=== PATIENT | male | born 1970 | race Hispanic/Latino ===

== ENCOUNTER 2017-06-24 16:37 | Emergency (ER) | payer SELFPAY | END 2017-06-24 18:15 | disposition home or self-care (01) | LOC: EDH 16:37 | DX: K04.7 Periapical abscess without sinus (principal); Z72.0 Tobacco use ==

== ENCOUNTER 2023-03-14 08:36 | Emergency (ER) | payer OTHER ==
[~2023-03-14] VITALS: Ht 160 cm; Wt 80.9 kg
[2023-03-14] MEDS ORDERED: CEFTRIAXONE 500MG VIAL IM STA (09:16)
[2023-03-14] MEDS ORDERED: LIDOCAINE HCL 2% VISCOUS 15 ML UDCUP TP ONE (09:30)
[2023-03-14] MEDS ORDERED: DOXYCYCLINE HYCLATE 100 MG TABLET PO SCH (09:30)
[2023-03-14 10:21] LABS: ADD UA MICROSCOPIC YES; APPEARANCE,URINE CLEAR (CLEAR); BILIRUBIN,URINE NEGATIVE (NEGATIVE); COLOR,URINE LIGHT-YELLOW (YELLOW); GLUCOSE, URINE (UA) >=1000 mg/dL (NEGATIVE); KETONES,URINE NEGATIVE (NEGATIVE); LEUKOCYTE ESTERASE ,URINE 250 Leu/uL (NEGATIVE); NITRATE,URINE NEGATIVE (NEGATIVE); OCCULT BLOOD,URINE NEGATIVE (NEGATIVE); PH,URINE 5.5 (5.0-8.0); PROTEIN,URINE 10 mg/dL (NEGATIVE); UROBILINOGEN,URINE 0.2 mg/dL (0.2-1.0)
[2023-03-14 10:32] LABS: BACTERIA,URINE FEW /HPF (None Seen); MUCUS,URINE RARE LPF (None Seen); SQUAMOUS EPITHELIAL CELL,UR RARE /HPF (0-2); UNCLASSIFIED CRYSTAL 1 /HPF (None Seen); WBC,URINE 51-100 /HPF (0-1)
[2023-03-14] MEDS ORDERED: VALA10002 PO (11:30)
[2023-03-14] MEDS ORDERED: [UNRECOGNIZED DRUG - CODE] TP (11:30)
[2023-03-14] MEDS ORDERED: DOXY-469 PO (11:30)
[2023-03-14 11:45] VITALS: BP 121/80; PULSE 70; RESP 16; O2SAT 100
== END 2023-03-14 11:53 | disposition home or self-care (01) ==
LOC: EDH 08:36
DX: N39.0 Urinary tract infection, site not specified (principal); A63.8 Other specified predominantly sexually transmitted diseases; R36.9 Urethral discharge, unspecified; N50.811 Right testicular pain; Z79.899 Other long term (current) drug therapy
CPT/HCPCS: 99285; 87088; 87797; 87486; 81001; 76870; 96372; J0696

== ENCOUNTER 2023-10-17 08:09 | Emergency (ER) | payer OTHER ==
[~2023-10-17] VITALS: Ht 154.9 cm; Wt 81.6 kg
[~2023-10-17 08:09] MED LIST: DOXY100C61 PO; VALA10002 PO; [UNRECOGNIZED DRUG - CODE] TP
[2023-10-17 08:12] VITALS: BP 119/92; PULSE 88; RESP 18
[2023-10-17 08:53] LABS: INFLUENZA TYPE A Negative For Type A (NEGATIVE); INFLUENZA TYPE B Negative For Type B (NEGATIVE)
[2023-10-17 08:57] LABS: SARS-CoV-2, RNA, NAAT POSITIVE SARS CoV-2 (NEGATIVE)
[2023-10-17] MEDS ORDERED: paxlovid PO (09:43)
== END 2023-10-17 09:58 | disposition home or self-care (01) ==
LOC: EDH 08:09
DX: U07.1 COVID-19 (principal); Z79.899 Other long term (current) drug therapy
CPT/HCPCS: 87635; 87804

== ENCOUNTER 2023-12-01 09:21 | Emergency (ER) | payer SELFPAY ==
[~2023-12-01] VITALS: Ht 154.9 cm; Wt 81.6 kg
[~2023-12-01 09:21] MED LIST changes: +paxlovid PO
[2023-12-01 10:00] LABS: BASOPHILS # (AUTO) 0.07 K/uL (0.00-0.20); BASOPHILS % (AUTO) 0.7 % (0.0-5.0); EOSINOPHILS # (AUTO) 0.47 K/uL (0.00-0.70); EOSINOPHILS % (AUTO) 4.4 % (0.0-8.0); HEMATOCRIT 44.4 % (42-54); IMMATURE GRANULOCYTE ABSOLUTE 0.03 K/uL (0-1); LYMPHOCYTES # (AUTO) 2.6 K/uL (1.0-4.8); LYMPHOCYTES % (AUTO) 24.4 % (21.0-51.0); MEAN CORPUSCULAR HEMOGLOBIN 31.8 pg (27.0-33.0); MEAN CORPUSCULAR HGB CONC 35.1 g/dL (32.0-36.0); MEAN CORPUSCULAR VOLUME 90.4 fL (79-99); MONOCYTES # (AUTO) 0.6 K/uL (0.1-1.0); MONOCYTES % (AUTO) 5.4 % (3.0-13.0); NEUTROPHILS # (AUTO) 6.9 K/uL (1.8-7.7); NEUTROPHILS % (AUTO) 64.8 % (40.0-77.0); PLATELET COUNT (AUTO) 206 K/uL (130-400); RED BLOOD CELL COUNT(AUTO) 4.91 MIL/uL (4.50-6.20); WHITE BLOOD COUNT (AUTO) 10.6 K/uL (4.8-10.8)
[2023-12-01 10:07] LABS: CREATININE 0.7 mg/dL (0.5-1.3)
[2023-12-01 10:11] LABS: ALBUMIN 3.4 g/dL (3.5-5.0); BILIRUBIN,TOTAL 0.8 mg/dL (0.2-1.0); TOTAL PROTEIN, SERUM 8.5 g/dL (6.0-8.3)
[2023-12-01 10:38] LABS: APPEARANCE,URINE CLEAR (CLEAR); BILIRUBIN,URINE NEGATIVE (NEGATIVE); COLOR,URINE YELLOW (YELLOW); GLUCOSE, URINE (UA) >=1000 mg/dL (NEGATIVE); KETONES,URINE NEGATIVE (NEGATIVE); LEUKOCYTE ESTERASE ,URINE NEGATIVE Leu/uL (NEGATIVE); NITRATE,URINE NEGATIVE (NEGATIVE); OCCULT BLOOD,URINE NEGATIVE (NEGATIVE); PH,URINE 5.5 (5.0-8.0); PROTEIN,URINE 20 mg/dL (NEGATIVE); UROBILINOGEN,URINE 0.2 mg/dL (0.2-1.0)
[2023-12-01 10:39] LABS: ADD UA MICROSCOPIC YES
[2023-12-01 10:43] LABS: MUCUS,URINE RARE LPF (None Seen); RBC,URINE 0-1 /HPF (0-1); SQUAMOUS EPITHELIAL CELL,UR RARE /HPF (0-2)
[2023-12-01] MEDS: MORPHINE 4 MG SYG IVP ONE (11:39)
[2023-12-01] MEDS ORDERED: KETO10TA2 PO (12:22)
[2023-12-01] MEDS: LACTULOSE 20 GM/30 ML UDCUP PO ONE (12:39)
[2023-12-01 12:42] VITALS: BP 146/79; PULSE 66; RESP 14; O2SAT 99
== END 2023-12-01 12:43 | disposition home or self-care (01) ==
LOC: EDH 09:21
DX: K57.30 Diverticulosis of large intestine without perforation or abscess without bleeding (principal); K80.20 Calculus of gallbladder without cholecystitis without obstruction; K59.00 Constipation, unspecified; Z79.899 Other long term (current) drug therapy
CPT/HCPCS: 99285; 74176; 96374; 80053; 83690; 85025; 81001; 36415; J2270

== ENCOUNTER 2024-10-28 05:00 | Inpatient (IN) | payer BC, OTHER ==
[~2024-10-28] VITALS: Ht 152.4 cm; Wt 75.9 kg
[~2024-10-28 05:00] MED LIST changes: +DOXY-466 PO; -DOXY100C61 PO; +KETO10TA2 PO
--- NOTE | 2024-10-28 05:48 | ERN ---
ED Note History of Present Illness Stated Complaint: RUNNY NOSE CONGESTION Chief Complaint: Flu Symptoms Time Seen by MD: 05:21 Dictation: This is a 53-year-old male who presented to the emergency room with complaints of feeling hot runny nose with chest congestion all this that started yesterday. He denied any nausea vomitings. He also denied chills and rigors. No dysuria hematuria. He reported severe body aches. Patient stated that since Tuesday he has had cough with the copious amounts of sputum. He denied any hemoptysis. Gave a history of smoking cigarettes for many years and is experiencing some shortness of breath with any movement of the body and activity . Temperature 99.8 pulse 103 blood pressure 143/80 respiratory rate 20 pulse oximetry 98% on room air Allergies: Coded Allergies: No Known Drug Allergies (Unverified Allergy, Unknown, 10/17/23) Home Meds Active Scripts Ketorolac Tromethamine (Ketorolac Tromethamine) 10 Mg Tablet, 10 MG PO Q6H for pain for 7 Days, #28 TAB Prov:AMBAR MCGUIRE MD 12/01/23 [paxlovid] No Conflict Check, 3 TAB PO BID for covid 19 for 5 Days, #30 0 Refills Prov:MARIA G CONLEY MD 10/17/23 Lidocaine HCl (Xylocaine HCl 2% Jelly Pf) 2 % Jel, 1 APPL TP TIDP PRN for PAIN, #1 TUBE 0 Refills Prov:CLAUDIA WOODS [facility] 03/14/23 Valacyclovir HCl (Valtrex) 1,000 Mg Tablet, 1000 MG PO BID for 10 Days, #20 TAB 0 Refills Prov:CLAUDIA WOODS [facility] 03/14/23 Doxycycline Monohydrate (Doxycycline Monohydrate) 100 Mg Capsule, 1 CAP PO BID for 10 Days, #20 CAP 0 Refills Prov:CLAUDIA WOODSP 03/14/23 Past Medical History Past Medical History: No Pertinent History Surgical History: None Family History: Negative Social History: Smokers RN Note Reviewed/Agreed w/PFSH: Yes Review of System Dictation Constitutional: Positive for fever, generalized body aches but denied chills, and weight loss Eyes: Negative for injury, pain,redness, and discharge ENT: Negative for injury,pain or swelling Cardiovascular: Negative for chest pain, palpitations, and edema Respiratory: Positive for shortness of breath, cough with sputum, Abdomen/GI: Negative for abdominal pain, nausea, vomiting, diarrhea, and constipation Back: Negative for injury and pain : Negative for injury, bleeding and discharge MS/Extremity: Negative for injury and deformity Skin: Negative for rash, and discoloration Neuro: Negative for headache, weakness, numbness, tingling, and seizure Psych: Negative for suicide ideation, homicidal ideation, and hallucinations Initial Vital Sign VS Vital Signs Date Time Temp Pulse Resp B/P (MAP) Pulse Ox O2 Delivery O2 Flow Rate FiO2 10/28/24 05:01 99.9 103 20 143/80 97 Room Air 10/28/24 05:10 0 21 Physical Exam Dictation General: awake, alert, NAD mild tachypnea Head/Face: Normocephalic, atraumatic Eyes: PERRL, EOMI, vision at baseline ENT: oral cavity clear, TMs clear, no signs of infection Neck: Trachea midline, supple, no nuchal rigidity Cardiovascular: RRR, normal S1/S2, No MRGs, no JVD Respiratory: Decreased air entry bilaterally, prolonged expiratory phase with end expiratory wheezing to forced expiratory maneuver Abdomen: Soft, non-tender, non-distended, normal bowel sounds, no guarding or rebound. Skin: Warm, dry, normal turgor, no rash MS/Extremity: Pulses equal, no cyanosis, neurovascular intact, FROM Neuro: COAx4, GCS 15, strength 5/5, CN 2-12 intact, normal cerebellar exam, normal gait, Psych: Normal behavior, mood, and affect normal Extremities-trace edema without any palpable cords, Homans sign is negative Results (Laboratory/Radiology) Laboratory/Radiology Laboratory Tests Test 10/28/24 05:34 10/28/24 07:08 10/28/24 08:20 Influenza Type A Antigen Negative For Type A Influenza Type B Antigen Negative For Type B SARS-CoV-2 Antigen (Rapid) PRESUMPTIVE NEGATIVE Group A Streptococcus Rapid negative (NEGATIVE) White Blood Count 10.0 K/uL (4.8-10.8) Red Blood Count 4.65 MIL/uL (4.50-6.20) Hemoglobin 14.9 g/dL (14.0-18.0) Hematocrit 41.4 % (42-54) L Mean Corpuscular Volume 89.0 fL (79-99) Mean Corpuscular Hemoglobin 32.0 pg (27.0-33.0) Mean Corpuscular Hemoglobin Concent 36.0 g/dL (32.0-36.0) Red Cell Distribution Width 11.9 % (11.0-15.5) Platelet Count 175 K/uL (130-400) Mean Platelet Volume 12.2 fL (7.5-10.5) H Immature Granulocyte % (Auto) 0.3 % (0-1) Neutrophils (%) (Auto) 77.4 % (40.0-77.0) H Lymphocytes (%) (Auto) 11.8 % (21.0-51.0) L Monocytes (%) (Auto) 7.9 % (3.0-13.0) Eosinophils (%) (Auto) 2.4 % (0.0-8.0) Basophils (%) (Auto) 0.2 % (0.0-5.0) Neutrophils # (Auto) 7.8 K/uL (1.8-7.7) H Lymphocytes # (Auto) 1.2 K/uL (1.0-4.8) Monocytes # (Auto) 0.8 K/uL (0.1-1.0) Eosinophils # (Auto) 0.24 K/uL (0.00-0.70) Basophils # (Auto) 0.02 K/uL (0.00-0.20) Absolute Immature Granulocyte (auto 0.03 K/uL (0-1) Nucleated Red Blood Cells 0.0 % (0.0-0.19) Prothrombin Time 10.3 SEC (9.6-11.6) Prothromb Time International Ratio 0.97 (0.85-1.15) Activated Partial Thromboplast Time 35.1 SEC (26.3-35.5) Sodium Level 132 mmol/L (136-145) L Potassium Level 3.9 mmol/L (3.5-5.1) Chloride Level 94 mmol/L (101-111) L Carbon Dioxide Level 27 mmol/L (21-32) Blood Urea Nitrogen 14 mg/dL (7-18) Creatinine 0.8 mg/dL (0.5-1.3) Glomerular Filtration Rate Calc 106 mL/min (>90) Random Glucose 289 mg/dL (70-105) H Total Calcium 9.1 mg/dL (8.5-10.1) Troponin I High Sensitivity < 4 ng/L (4-75) L Lactic Acid Level 1.7 mmol/L (0.8-2.5) Labs Reviewed?: Yes X-RAY Comment: I have reviewed the chest x-ray which shows a spontaneous right pneumothorax . Notified radiology REASON: copd exacerbation Pneumonitis ORDERING PHYSICIAN: DILLON PATEL MD PROCEDURE: CXR1VW - CHEST 1VW EXAM: CR Chest, 1 View. CLINICAL HISTORY: copd exacerbation Pneumonitis COMPARISON: None provided. FINDINGS: LUNGS: Elevation of the right hemidiaphragm with decreased lung volume on the right. Grossly clear left lung. PLEURAL SPACES: No pleural effusion or pneumothorax. MEDIASTINUM: Cardiac size and mediastinal contours within normal limits. BONES: No acute osseous abnormality. IMPRESSION: Elevation of the right hemidiaphragm with decreased lung volume on the right. Grossly clear left lung. /[place] DICTATED BY: BHASKAR MCMILLAN MD DATE: 10/28/24727 ELECTRONICALLY SIGNED BY: BHASKAR MCMILLAN MD DATE: 10/28/24727 ED Course ED Course Orders Procedure Category Date Status Time Influenza Type A & B, LAB 10/28/24 Complete Rapid 05:33 Rapid (Group A Strep) LAB 10/28/24 Complete 05:33 Ketorolac PHA 10/28/24 Complete Tromethamine 30mg/Ml 06:00 Covid19 (Sars Antigen LAB 10/28/24 Complete Rapid) 05:48 Chest 1vw RAD 10/28/24 Resulted 06:10 Methylprednisolone PHA 10/28/24 Complete Succ 125mg (Solu-Medr 06:30 Ipratropium/Albuterol PHA 10/28/24 Complete Neb (Duoneb) 06:30 Lidocaine Hcl 1% 20ml PHA 10/28/24 Complete Vial (Lidocaine Hc 07:20 Fentanyl Citrate Pf PHA 10/28/24 Complete 0.05 Mg/Ml (Fentanyl 07:24 Chest 1vw RAD 10/28/24 Taken 07:49 12 Lead Ekg Tracing- EKG 10/28/24 Complete Technical 07:49 Cbc With Differential LAB 10/28/24 Complete 07:49 Pt And Ptt LAB 10/28/24 Complete 07:49 Troponin I High LAB 10/28/24 Complete Sensitivity 07:49 Blood Cult RONN 10/28/24 Logged 07:49 Lactic Acid LAB 10/28/24 Complete 07:49 Ceftriaxone 2gm Vial PHA 10/28/24 Complete (Rocephin 2gm Inj) 08:00 0.9%Nacl 1000ml (Ns PHA 10/28/24 Complete 1000ml) 08:00 Hsbid-8-Hegpwadrtub LAB 10/28/24 In Process 07:50 Basic Metabolic Panel LAB 10/28/24 Complete 08:04 Ct Chest W/O Contrast CT 10/28/24 Logged 08:24 Current Medications Medications (Trade) Dose Ordered Sig/Estela Route PRN Reason Start Time Stop Time Status Last Admin Dose Admin Albuterol (DUOneb) 1 UDVIAL ONCE ONCE IH 10/28/24 06:30 10/28/24 06:31 DC 10/28/24 07:27 Ceftriaxone Sodium (Rocephin 2gm Inj) 2 gm ONCE ONCE IVPB 10/28/24 08:00 10/28/24 08:01 DC Fentanyl Citrate (FENTanyl CITRate PF 50 MCG/ 1 ML 2ML VIAL) 100 mcg STK-MED ONCE .ROUTE 10/28/24 07:24 10/28/24 07:25 DC Ketorolac Tromethamine (toRADol) 30 mg ONCE ONCE IM 10/28/24 06:00 10/28/24 06:01 DC 10/28/24 06:08 Lidocaine HCl (Lidocaine HCl 1% 20ml Vial) 20 ml STK-MED ONCE .ROUTE 10/28/24 07:20 10/28/24 07:20 DC Methylprednisolone Sodium Succinate (Solu-medROL 125MG) 60 mg ONCE ONCE IVP 10/28/24 06:30 10/28/24 06:31 DC 10/28/24 06:17 Sodium Chloride 1,000 ml @ 0 mls/hr ONCE ONCE IV 10/28/24 08:00 10/28/24 08:01 DC Vital Signs Date Time Temp Pulse Resp B/P (MAP) Pulse Ox O2 Delivery O2 Flow Rate FiO2 10/28/24 08:22 97.0 85 22 104/69 100 Non-Rebreather+ 15 100 10/28/24 07:27 86 20 10/28/24 06:24 92 28 109/70 96 Room Air* 0 21 10/28/24 05:10 99.9 106 24 116/69 95 Room Air* 0 21 10/28/24 05:01 99.9 103 20 143/80 97 Room Air . We will perform diagnostic labs, and administer medications according to the patient's complaint. Once the results are available, will review and personally interpreted the labs to rule out any acute life-threatening emergency the trach require immediate intervention and treatment. I will then re- evaluate the patient after treatment and diagnostic exams have return to determine whether the patient requires any further testing, can safely be discharged home or need further admission to hospital for additional treatment and evaluation. Patient was initially triaged and worked up as a viral syndrome and with influenza symptoms however on re-evaluation he complained to me of shortness of breath on the right side having a pain which started in the neck with prompted me to pursue a chest x-ray. 7:08 a.m. I reviewed the chest x-ray which showed right-sided pneumothorax spontaneous and I updated the patient. He definitely appears slightly worse with increasing tachypnea. Immediately placed him on 100% non-rebreather mask and we will pursue a tube thoracostomy. Procedure explained in detail with risks benefits alternatives We will also obtain basic labs and outcomes. Patient care transition to Dr. Richard who will place the chest tube Medical Decision Making MDM Differential diagnosis: Influenza, COVID, viral syndrome,, pneumothorax upper respiratory tract infection, bronchitis Rationale: Tests considered and ordered secondary to shared decision making include: labs, ECG and radiology Previous outside records reviewed: Old ER visits. Risk of complication and/or morbidity or mortality of patient management: None Medications-Per medication reconciliation Need for hospitalization: Patient does meet criteria for hospitalization. Need for emergency major/minor surgery: No There are no social concerns with this patient. Prescription drug management Prescriptions will include symptomatic care Patient's prior external medical records from other ER visits were reviewed by me as indicated. Prior testing and results from previous visits were reviewed. Prior tests were taken into account with medical decision making and resource utilization, independent historian/historians were used to obtain complete medical history. I independently interpreted the test that were performed, results were reviewed by me and considered findings on radiology if ordered. Medical management and examination interpretation discussions were had by me with other qualified healthcare professionals as indicated for the patient's care. Patient handed off at shift change at 7:00 a.m., patient with shortness of breath respiratory distress and right-sided pneumothorax no chest tube has been placed he had, I prepped the site sterilely and inserted chest tube I requested normal chest tube set up however no equipment was available for standard chest tube thoracostomy so only thing that was available was pigtail catheter 12 Cypriot. Symptoms are improved, vitals all stable repeat chest x-ray shows re- expansion of lung concern for empyema, heading antibiotics CT scan and admitting to Medicine for further care and evaluation. Procedure Chest Tube Location: mid axillary line Chest Tube Procedures: betadine prep? Anesthesia: 1% Lidocaine Tube Drainage: see nurses notes Progress Pigtail 12 [place]riot catheter placed, cylinder technique sterile, local lidocaine used, good air return, secured with sterile tape and petroleum gauze, one 2.0 suture placed for security. Problem List Problem List: (1) Acute viral syndrome (2) Tobacco abuse (3) COPD exacerbation (4) Pneumothorax, right Critical Care Note Comment(s) Total critical care time was 33 minutes. Excluding time for procedures. Management of critically ill patient with concern for acute decompensation. Management included interpretation of laboratory values and imaging, hemodynamics, time for consultation with consultants and admitting physician. DX & DISP Disposition: Inpatient Decision to Admit Time: 07:15 Departure Impression: Primary Impression: Spontaneous pneumothorax Additional Impressions: COPD with acute exacerbation, Tobacco abuse, Pneumothorax, right, Acute viral syndrome Condition: Stable Additional Instructions: Patient was informed of all the diagnostic labs and procedures conducted in the emergency room today and demonstrated understanding of the results. I personally reviewed and interpreted all the diagnostic exams performed in the ER today. The patient will be admitted to the hospital for further treatment and evaluation. Disposition-admit to facility Condition-stable/guarded Course-uncertain at this time Pain status-decreased Assessment-exam unchanged Admission Certification- I certify that the patients status is appropriate and is based on my best clinical judgment and the patient's condition as documented in the medical records Referrals: SELF,REFERRAL (PCP) DILLON PATEL MD Oct 28, 2024 05:48 TUAN LOPEZ MD Oct 28, 2024 08:51
[2024-10-28 05:52] LABS: RAPID GROUP A STREP negative (NEGATIVE)
[2024-10-28 06:02] LABS: INFLUENZA TYPE A Negative For Type A (NEGATIVE); INFLUENZA TYPE B Negative For Type B (NEGATIVE)
--- NOTE | 2024-10-28 06:29 | HMCIMG ---
EXAM: CR Chest, 1 View. CLINICAL HISTORY: copd exacerbation Pneumonitis COMPARISON: None provided. FINDINGS: LUNGS: Elevation of the right hemidiaphragm with decreased lung volume on the right. Grossly clear left lung. PLEURAL SPACES: No pleural effusion or pneumothorax. MEDIASTINUM: Cardiac size and mediastinal contours within normal limits. BONES: No acute osseous abnormality. IMPRESSION: Elevation of the right hemidiaphragm with decreased lung volume on the right. Grossly clear left lung. /[place]
[2024-10-28] MEDS: LIDOCAINE HCL 1% 20 ML VIAL ONE (07:20)
[2024-10-28 07:27] VITALS: PULSE 86; RESP 20
--- NOTE | 2024-10-28 07:45 | NUR ---
12FR CHEST TUBE INSERTED BY DR LOPEZ.130 ML DRAINAGE. PT TOLERATED PROCEDURE WELL
[2024-10-28 08:12] LABS: IMMATURE GRANULOCYTE ABSOLUTE 0.03 K/uL (0-1); NUCLEATED RED BLOOD CELLS 0.0 % (0.0-0.19); PLATELET COUNT (AUTO) 175 K/uL (130-400); RED BLOOD CELL COUNT(AUTO) 4.65 MIL/uL (4.50-6.20); RED CELL DISTRIBUTION WIDTH 11.9 % (11.0-15.5); WHITE BLOOD COUNT (AUTO) 10.0 K/uL (4.8-10.8)
--- NOTE | 2024-10-28 08:18 | EKG ---
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
[2024-10-28 08:21] LABS: INR 0.97 (0.85-1.15)
[2024-10-28 08:22] LABS: CREATININE 0.8 mg/dL (0.5-1.3); GLOMERULAR FILTR. RATE CALC 106.0 mL/min (>90); GLUCOSE,RANDOM 289.0 mg/dL (70-105); SODIUM SERUM 132.0 mmol/L (136-145); UREA NITROGEN, BLOOD 14.0 mg/dL (7-18)
[2024-10-28] MEDS ORDERED: guaiFENesin-DM 200/20MG 10ML PO PRN (09:00)
--- NOTE | 2024-10-28 09:29 | HMCIMG ---
EXAM: CR Chest, 1 View. CLINICAL HISTORY: s/p chest tube COMPARISON: Radiograph dated October 28, 2024 Findings: AP view of the chest. Interval placement of a chest tube, which overlies the right lung base. Small residual right anterior pneumothorax. Right basilar atelectasis and/are an infectious/inflammatory process. Mild airspace disease at the left lung base may reflect atelectasis. Small right pleural effusion. Heart size is stable. Pulmonary vessels are within normal limits. IMPRESSION: 1. Small residual right anterior pneumothorax with interval chest tube placement. 2. Right basilar opacity, may represent atelectasis versus infection/inflammation. 3. Left basilar atelectasis. /[place]
[2024-10-28] MEDS: 0.9%NACL 1000ML 1,000 ML IV ONE (09:33)
[2024-10-28] MEDS: LIDOCAINE HCL 1% 20 ML VIAL INJ ONE (09:58)
[2024-10-28 10:14] LABS: ABG BASE EXCESS -4.0 mmol/L (-2.0-3.0); ABG HCO3 20.2 mmol/L (21.0-28.0); ABG OXYGEN SATURATION 88.7 % (94.0-98.0); ABG PCO2 35 mmHg (35-48); ABG PH 7.385 (7.350-7.450); CARBON MONOXIDE 1.4 % (0.5-1.5); DEVICE COMMENT RR; PO2, ARTERIAL BG 55.3 mmHg (83.0-108.0); TEMPERATURE, CELSIUS BG 37.0 CELSIUS (35.5-37.0); VENT MODE, BG RA (ROOM AIR)
[2024-10-28 10:16] LABS: ASPARTATE AMINOTRANSFERASE 34.0 U/L (10-37); CREATININE 1.0 mg/dL (0.5-1.3); GLOMERULAR FILTR. RATE CALC 90.0 mL/min (>90); GLUCOSE,RANDOM 353.0 mg/dL (70-105); LACTATE DEHYDROGENASE 144.0 U/L (81-234); SODIUM SERUM 131.0 mmol/L (136-145); TOTAL PROTEIN, SERUM 8.0 g/dL (6.0-8.3); UREA NITROGEN, BLOOD 18.0 mg/dL (7-18)
[2024-10-28 10:25] VITALS: O2SAT 94
[2024-10-28] MEDS: AZITHROMYCIN 500MG+NS 250ML 250 ML IVPB SCH (10:32)
[2024-10-28] MEDS: FAMOTIDINE 20MG VIAL IV SCH (10:33)
[2024-10-28] MEDS: 0.9%NACL 1000ML 1,000 ML IV SCH (10:33)
[2024-10-28] MEDS: THIAMINE HCL 100 MG/ML 2ML VIAL IVP SCH (10:33)
[2024-10-28 10:39] LABS: HIV 1&2 ANTIBODY Non-Reactive (Negative)
--- NOTE | 2024-10-28 10:44 | HMCIMG ---
EXAM: CT Chest Without IV contrast. CLINICAL HISTORY: SOB TECHNIQUE: Axial computed tomography images of the chest without intravenous contrast. COMPARISON: None provided. FINDINGS: LUNGS: The chest tube enters through the lateral aspect of the 4th intercostal space, with its tip abutting the cardiac mediastinum, and subcutaneous emphysema is present along the track of the chest tube. Collapse consolidation of the right lung parenchyma predominantly in the right lower lobe. Dependent left basilar atelectasis. PLEURAL SPACES: Small hydropneumothorax. HEART: No cardiomegaly. No significant pericardial effusion. LYMPH NODES: No enlarged lymphadenopathy is evident. UPPER ABDOMEN: Isodense calculus with peripheral calcification measuring 1.6 cm in the gallbladder. BONES: Mild degenerative changes in the visualised spine. No acute osseous abnormality. IMPRESSION: 1. Right hydropneumothorax with chest tube in place 2. Right lower lobe collapse consolidation 3. Subcutaneous emphysema along chest tube track /[place]
[2024-10-28] MEDS ORDERED: VANCOMYCIN PROTOCOL PER PHARMACY IV SCH (11:00)
--- NOTE | 2024-10-28 11:09 | HP ---
[facility] HISTORY [facility] PHYS[facility] Date of Service: Oct 28, 2024 Time of Service: 11:02 HISTORY OF PRESENT ILLNESS: Date of service: 10/28/2024, patient was seen in ER room 14 53-year-old male with history of significant tobacco use disorder (40 pack year smoking history), who presented to the ER for further evaluation of shortness of breath, cough and pleurisy. Symptoms have been ongoing for the past three days and patient states that shortness of breath worsened overnight. He has been having subjective malaise as well. Denies any fevers or chills. Reports having long-time history of smoking and started smoking since the age of 12-13. Smokes about a pack a day with last cigarette use being on Tuesday. Denies any significant alcohol consumption or illicit drug use. On presentation to the hospital, patient was noted to have T-max of 99.9 F, heart rate of 103, blood pressure of 143/80. Chest x-ray showed findings of [id number] right-sided pneumothorax. Twelve Azeri pigtail catheter was placed in the ER relief of pneumothorax. CT chest without contrast was performed which showed findings of right-sided hydropneumothorax with right lower lobe consolidative pneumonia. Patient will be admitted for further management. Consultation with pulmonary and infectious disease service will be requested. Patient will receive broad- spectrum antibiotics and continue with chest tube management we will see how patient progresses in the next 48-72 hours. REVIEW OF SYSTEMS CONSTITUTIONAL: malaise, fatigue NEUROLOGICAL: Denies headache, amaurosis fugax, motor weakness, sensory deficit, vertigo/spinning sensation, gait abnormalities, or tremors. ENT: No hearing loss, otalgia, otorrhea, rhinitis, rhinorrhea, hoarseness, or s ore throat. CARDIOVASCULAR: Denies any exertional angina, dyspnea on exertion, orthopnea, paroxysmal nocturnal dyspnea, palpitations, life-threatening arrhythmias, claudication. PULMONARY: SOB, pleurisy SLEEP: Denies morning headaches, daytime somnolence or napping. Denies difficulty falling asleep, staying asleep, waking from sleep. Denies knowledge of snoring. GASTROINTESTINAL: Denies any type of dysphagia to either liquids or solids. Denies nausea, vomiting, pyrosis, early satiety, abdominal pain, diarrhea, constipation, or changes in stool consistency or caliber. Denies coffee-ground emesis, hematemesis, hematochezia, or melanotic stools. GENITOURINARY: Denies frequency, urgency, nocturia, hematuria or incontinence (Storage/Irritative symptoms.) Low urinary stream, straining to void, urinary intermittency or hesitancy, splitting of the voiding stream, terminal dribbling. ENDOCRINOLOGIC: Denies polyuria, polydipsia, polyphagia or heat/cold intolerances. HEMATOLOGIC: Denies thrombophilia/previous clots, or coagulopathy/bleeding disorders. ONCOLOGIC: Denies personal history of malignancy. DERMATOLOGIC: Denies rashes or pruritus. PSYCHIATRIC: Denies any suicidal or homicidal ideation. Denies hallucinations. PAST MEDICAL HISTORY: Tobacco use disorder PAST SURGICAL HISTORY: Denies history of major surgeries previously PAST SOCIAL HISTORY: Patient smokes about a pack a day for 40 years, drinks socially, denies any other illicit drug use FAMILY HISTORY: Denies history of major family history Allergies: No known drug allergies Coded Allergies: No Known Drug Allergies (Unverified Allergy, Unknown, 10/17/23) PHYSICAL EXAM GENERAL APPEARANCE: The patient is awake, alert, and oriented, in no acute cardiopulmonary distress. NEUROLOGICAL: Cranial nerves II-XII grossly intact. Motor is 5/5 in bilateral upper and lower extremities proximal to distal. No sensory deficits. HEENT: Face is symmetric. Pupils are equal and reactive. Extraocular movements are intact. NECK: Supple. No JVD. No thyromegaly. No submental, submandibular, pre- /postauricular, occipital or supraclavicular lymphadenopathy. CHEST: Normal chest expansion. No Telemetry. LUNGS: Decreased breath sound of the right lung base with crackles noted CARDIOVASCULAR: Regular. S1 and S2 normal. No appreciable rubs, murmurs or gallops. ABDOMEN: Soft, nontender, and nondistended. There is no rebound, voluntary guarding, or rigidity. : Deferred. No [place]. EXTREMITIES: Non-edematous and not cyanotic. No clubbing. Good capillary refill. SKIN: No skin breakdown. Vital Sign (Last 24 Hours) 10/28/24 08:22 Temp 97.0 Pulse 85 Resp 22 B/P (MAP) 104/69 Pulse Ox 100 O2 Delivery Non-Rebreather+ O2 Flow Rate 15 FiO2 100 LABS: Laboratory: Test 10/28/24 10:12 10/28/24 09:29 10/28/24 08:20 10/28/24 07:08 Range/Units Blood Gas Specimen Type Arterial Arterial Blood pH 7.385 7.350-7.450 Arterial Blood Partial Pressure CO2 35 35-48 mmHg Arterial Blood Partial Pressure O2 55.3 L 83.0-108.0 mmHg Arterial Blood HCO3 20.2 L 21.0-28.0 mmol/L Arterial Blood Oxygen Saturation 88.7 L 94.0-98.0 % Arterial Blood Base Excess -4.0 L -2.0-3.0 mmol/L Hemoglobin (Blood Gas) 14.9 13.5-17.5 g/dL Sodium (Blood Gas) 131 L 136-145 MMOL/L Bedside Potassium (Blood Gas) 3.7 3.4-4.5 MMOL/L Bedside Chloride (Blood Gas) 101 98-107 MMOL/L Bedside Glucose (Blood Gas) 340 H 65-95 MG/DL Bedside Ionized Calcium (Blood Gas) 1.09 L 1.15-1.33 MMOL/L Bedside Lactic Acid (Blood Gas) 1.11 H 0.36-0.75 MMOL/L Blood Gas Temperature 37.0 35.5-37.0 CELSIUS Blood Gas Vent Mode RA ROOM AIR FiO2 21.0 % Blood Gas Specimen Comment RR Sodium Level 131 L 136-145 mmol/L Potassium Level 4.0 3.5-5.1 mmol/L Chloride Level 95 L 101-111 mmol/L Carbon Dioxide Level 25 21-32 mmol/L Blood Urea Nitrogen 18 7-18 mg/dL Creatinine 1.0 0.5-1.3 mg/dL Glomerular Filtration Rate Calc 90 >90 mL/min Random Glucose 353 H 70-105 mg/dL Total Calcium 8.4 L 8.5-10.1 mg/dL Total Bilirubin 0.4 0.2-1.0 mg/dL Aspartate Amino Transf (AST/SGOT) 34 10-37 U/L Alanine Aminotransferase (ALT/SGPT) 33 12-78 U/L Alkaline Phosphatase 89 50-136 U/L Lactate Dehydrogenase 144 81-234 U/L C-Reactive Protein, Quantitative 203.20 H 0.5-3.0 mg/L Total Protein 8.0 6.0-8.3 g/dL Albumin 2.5 L 3.5-5.0 g/dL Thyroid Stimulating Hormone (TSH) 1.05 0.36-3.74 uIU/mL HIV (1&2) Antibody Non-Reactive Negative HIV P24 Antigen, Qualitative Non-Reactive Negative Lactic Acid Level 1.7 0.8-2.5 mmol/L White Blood Count 10.0 4.8-10.8 K/uL Red Blood Count 4.65 4.50-6.20 MIL/uL Hemoglobin 14.9 14.0-18.0 g/dL Hematocrit 41.4 L 42-54 % Mean Corpuscular Volume 89.0 79-99 fL Mean Corpuscular Hemoglobin 32.0 27.0-33.0 pg Mean Corpuscular Hemoglobin Concent 36.0 32.0-36.0 g/dL Red Cell Distribution Width 11.9 11.0-15.5 % Platelet Count 175 130-400 K/uL Mean Platelet Volume 12.2 H 7.5-10.5 fL Immature Granulocyte % (Auto) 0.3 0-1 % Neutrophils (%) (Auto) 77.4 H 40.0-77.0 % Lymphocytes (%) (Auto) 11.8 L 21.0-51.0 % Monocytes (%) (Auto) 7.9 3.0-13.0 % Eosinophils (%) (Auto) 2.4 0.0-8.0 % Basophils (%) (Auto) 0.2 0.0-5.0 % Neutrophils # (Auto) 7.8 H 1.8-7.7 K/uL Lymphocytes # (Auto) 1.2 1.0-4.8 K/uL Monocytes # (Auto) 0.8 0.1-1.0 K/uL Eosinophils # (Auto) 0.24 0.00-0.70 K/uL Basophils # (Auto) 0.02 0.00-0.20 K/uL Absolute Immature Granulocyte (auto 0.03 0-1 K/uL Nucleated Red Blood Cells 0.0 0.0-0.19 % Erythrocyte Sedimentation Rate 122 H 0-20 MM/HR Prothrombin Time 10.3 9.6-11.6 SEC Prothromb Time International Ratio 0.97 0.85-1.15 Activated Partial Thromboplast Time 35.1 26.3-35.5 SEC Hemoglobin A1c 11.5 H 4.0-6.0 % Estimated Average Glucose (eAG) 283 H 70-126 mg/dL Troponin I High Sensitivity < 4 L 4-75 ng/L Procalcitonin 0.53 H 0.05-0.5 ng/mL Test 10/28/24 05:34 Range/Units Influenza Type A Antigen Negative For Type A NEGATIVE Influenza Type B Antigen Negative For Type B NEGATIVE SARS-CoV-2 Antigen (Rapid) PRESUMPTIVE NEGATIVE NEGATIVE Group A Streptococcus Rapid negative NEGATIVE Current Medications Medications (Trade) Dose Ordered Sig/Estela Route PRN Reason Start Time Stop Time Status Last Admin Dose Admin Acetaminophen (TYLenol 325MG TAB) 650 mg Q6H PRN PO MILD PAIN (1-3) 10/28/24 09:00 11/27/24 08:59 Albuterol (DUOneb) 1 udvial Q6H PRN IH SHORTNESS OF BREATH 10/28/24 09:00 11/27/24 08:59 Azithromycin 250 ml @ 250 mls/hr Q24H IVPB 10/28/24 09:00 11/07/24 08:59 10/28/24 10:32 250 MLS/HR Budesonide (Pulmicort 0.5 Mg/2ml) 0.5 mg BIDRESP IH 10/28/24 18:00 11/27/24 17:59 Cefepime HCl (MAXipime 2 gm vial) 2 gm Q12H IVPB 10/28/24 18:00 11/07/24 17:59 Famotidine (Pepcid 20mg Vial) 20 mg BID IV 10/28/24 09:00 11/27/24 08:59 10/28/24 10:33 20 MG Guaifenesin/ Dextromethorphan (RobiTUSSin DM 200/20MG 10ML) 10 ml Q6H PRN PO COUGH 10/28/24 09:00 11/27/24 08:59 Hydromorphone HCl (DiLAUDid 0.5MG INJ) 0.5 mg Q4H PRN IVP SEVERE PAIN (7-10) 10/28/24 09:00 11/02/24 08:59 Insulin Human Regular (humuLIN R 100 UNIT/ML 3ML) INSULIN SLIDING SCAL... ACHS SQ 10/28/24 11:30 11/27/24 11:29 Ketorolac Tromethamine (toRADol) 15 mg Q12H PRN IV MODERATE PAIN (4-6) 10/28/24 09:00 10/30/24 09:00 Ondansetron HCl (zoFRAN 4MG INJ) 4 mg Q6H PRN IVP NAUSEA/VOMITING 10/28/24 09:00 11/27/24 08:59 Sodium Chloride 1,000 ml @ 100 mls/hr Q10H IV 10/28/24 09:00 11/27/24 08:59 10/28/24 10:33 100 MLS/HR Thiamine HCl (Vitamin B-1) 100 mg Q24H IVP 10/28/24 09:00 11/27/24 08:59 10/28/24 10:33 100 MG Vancomycin HCl (Vancomycin Protocol) 1 each AD IV 10/28/24 11:00 11/11/24 10:59 [facility] DIAGNOSTICS / RADIOLOGY: SERVICE 3 REASON: SOB ORDERING PHYSICIAN: TUAN LOPEZ MD PROCEDURE: CHEST WO - CT CHEST W/O CONTRAST EXAM: CT Chest Without IV contrast. CLINICAL HISTORY: SOB TECHNIQUE: Axial computed tomography images of the chest without intravenous contrast. COMPARISON: None provided. FINDINGS: LUNGS: The chest tube enters through the lateral aspect of the 4th intercostal space, with its tip abutting the cardiac mediastinum, and subcutaneous emphysema is present along the track of the chest tube. Collapse consolidation of the right lung parenchyma predominantly in the right lower lobe. Dependent left basilar atelectasis. PLEURAL SPACES: Small hydropneumothorax. HEART: No cardiomegaly. No significant pericardial effusion. LYMPH NODES: No enlarged lymphadenopathy is evident. UPPER ABDOMEN: Isodense calculus with peripheral calcification measuring 1.6 cm in the gallbladder. BONES: Mild degenerative changes in the visualised spine. No acute osseous abnormality. IMPRESSION: 1. Right hydropneumothorax with chest tube in place 2. Right lower lobe collapse consolidation 3. Subcutaneous emphysema along chest tube track /[place] DICTATED BY: YOVANI BILLS Jr., MD DATE: 10/28/24 114 ELECTRONICALLY SIGNED BY: YOVANI BILLS Jr., MD DATE: 10/28/24 114 ASSESSMENT: Moderate to large right-sided pneumothorax status post chest tube placement in the ER, 10/28/2024 Concern for complicated parapneumonic effusion/empyema with right-sided hydropneumothorax, POA Right lower lobe consolidative pneumonia, POA History of poorly controlled two diabetes mellitus, POA Tobacco use disorder long-term smoking history, POA Rule out chronic COPD of the lungs, POA PLAN: Patient will be admitted to cardiac telemetry floor Continue with chest tube management per Pulmonary Medicine, pleural fluid stud ies to be sent for Gram stain, cultures, AFB We will start broad-spectrum antibiotics with vancomycin/cefepime/azithromycin Request consultation with Infectious Disease Continue sliding scale insulin a.c. and HS, we will start patient on Lantus tonight, we will check a hemoglobin A1c level Pain control with IV Toradol for moderate pain and IV hydromorphone for severe pain May need CT surgery evaluation if hydro-pneumothorax does not improve with chest tube management All labs will be repeated in the morning Discussed with patient about quitting smoking, patient verbalized understanding and stated he is willing to quit Date of service: 10/28/2024 Plan of care was discussed with patient at bedside, Nazario Malin MD Advanced Care Planning: Which of the following were discussed: Hospice care: Yes __ No _x_ Therapeutic options: Yes _x_ No __ Advance directives: Yes _x_ No __ Other discussions: Discussed with who?: Patient Voluntary nature of this service was explained to the patient? Yes _x_ No __ Amount of time spent: 20 minutes NAZARIO MALIN MD Oct 28, 2024 11:09
--- NOTE | 2024-10-28 11:20 | NUR ---
INFECTIOUS DISEASES DR PARK MADE AWARE OF PT.
--- NOTE | 2024-10-28 13:00 | NUR ---
NO HOME MEDS TO RECONCILE,PT DOES NOT TAKE ANYTHING REGULARLY
[2024-10-28] MEDS: VANCOMYCIN 1.5 GM/250 ML BAG 250 ML IV ONE (13:18)
--- NOTE | 2024-10-28 16:50 | NUR ---
CHEST TUBE PLEURAL FLUID WALKED UP TO LAB AND [employer]NER RECEIVED SPECIMEN AT THIS TIME.
--- NOTE | 2024-10-28 16:52 | NUR ---
SPUTUM SAMPLE AND PLEURAL SAMPLE FROM CHEST TUBE SENT TO LAB
--- NOTE | 2024-10-28 16:53 | CONS ---
[facility] CONSULTATION NOTE Date Patient Seen: Oct 28, 2024 Time of Visit: 16:16 Supervising Physician: Marcus Kilpatrick MD Reason for Consultation: Rt pneumothorax post chest tube placement Primary Care Physician: Self Referral Outpatient Specialists: None Inpatient Consults: AMBER, Dr Preston KENT Attending Physician: Dr. Finesse KENT PROBLEM LIST: Acute hypoxic respiratory failure 2/2 to be low, POA [id number] hydro pneumothorax with chest tube placed in ER, 10/28/2024 right lower lobe collapse consolidation with the atelectasis Suspected right hemidiaphragm paralysis, POA Concern for complicated parapneumonic effusion/empyema with right-sided hydropneumothorax, POA Right lower lobe consolidative pneumonia, POA History of poorly controlled two diabetes mellitus, POA Tobacco use disorder long-term smoking history, POA Rule out chronic COPD of the lungs, POA Obesity BMI 34 Nicotine abuse 40 pack year smoker Plan summary: Daily chest x-ray to monitor pneumothorax and chest tube Fluoroscopy sniff test PFTs Vital capacity test Sputum cultures Respiratory culture CBC, CMP, CRP, ESR, blood cultures Continue chest tube management in PCCU floor Chest tube to low intermittent suction at 20 cm H2O Pulmonary toileting: Incentive spirometer Q2 hours while awake Duo nebs q.6 hours PRN Pulmicort q.12 hours Empiric antibiotics azithromycin and cefepime has been added by primary team Maintain O2 sats above 92% Supplemental 02 as needed. FOB depending opn results of above testing HPI: This is a 53-year-old male with a past medical history of tobacco use disorder who started smoking since the age of [age] years old, who presented to the ED for evaluation of cough, shortness and pleuritic chest pain. Patient reports he has been having some shortness of breaths for few months now but recently for the last three days it has worsened. As for his chest pain he usually we will take something for heartburn in the goes away but this time it was different and did not go away after his usual soda pop that makes hi burp and feel better. Patient reports he has been feeling well which includes severe body aches, and thick copious sputum. for awhile and has experienced some unintentional weight loss. He reports he eats a lot but instead of gaining weight he seems like he is losing weight. He denies any fevers or chills. On arrival to the ED patient has a temperature of 99.9 heart rate of 103 respiratory rate of 20 blood pressure 143/80 saturating 97% on room air. Blood work was pertinent for normal white count but neutrophils were 77.4 ESR of 122, on chemistry protocol with 0.53 CRP of 203 albumin of 2.5 hemoglobin A1c of 11.5. ABG shows a pH of 7.38 pCO2 of55 PO2 of 55.3 Bicarb 20.2 And base excess -4. Initial chest x-ray showed an elevation of the right hemidiaphragm with decreased lung volume of the right grossly clear left lung. Noted to have a pneumothorax and 2 Spanish chest tube was placed by ED physician. CT of the chest was done post chest tube and it showed right hydro pneumothorax with chest tube in place, right lower lobe collapse consolidation, subcutaneous emphysema along chest tube trach. Patient was admitted by catalyst team to PCCU and we are consulted for pneumothorax status post chest tube placement. On assessment patient is awake alert and oriented x3. He had just arrived from CT scan. He was hemodynamically stable with a blood pressure 104/69 heart rate in the 80s respiratory rate of 22 mildly distress saturating 95% on non-rebrea ther with15 L. Currently afebrile in the awake alert and oriented x3. he reports chest pain decreased post chest tube placement. Drained a proximally 90 mL to chest tube atrium. We will send pleural fluid to lab, cytology and pathology. On CT of the chest patient is noted to have right elevated hemidiaphragm suspicious for right hemidiaphragm paralysis. We will order PFTs, vital capacity and sniff test. If negative we will consider bronchoscopy to rule out bronchial lesion to right lower lobe. For now we may maintain chest tube to intermittent suction of 20 cmH2O. I have discussed findings with the patient and he agrees with the plan of care. On behalf of [facility] thank you for given us the opportunity to participate in the care of this patient. PAST MEDICAL HX: see above PAST SURGICAL HX: noncontributory SOCIAL HISTORY: No tobacco, ETOH, or illicit drug use Coded Allergies: No Known Drug Allergies (Unverified Allergy, Unknown, 10/17/23) REVIEW OF SYSTEMS: Const: no fever, fatigue, + weight loss+ chills Eyes: no recent vision problems ENT: No congestion, ear pain, or sore throat C/V: no chest pain, palpitations or edema Resp: +No cough, congestion, wheezing , + Shortness of breath GI: No abdominal pain, nausea, vomiting, constipation, or diarrhea : No incontinence of or dyuria M/S: No joint or pain swelling Skin: No rash Neuro: no headache, focal numbness, or weakness, dizziness or seizures Psych: no depression or anxiety Heme: no abnormal bruising or bleeding Lymph: no swollen glands PHYSICAL EXAM: GENERAL: alert, weak, awake oriented x 3 HEENT: EOMI, Sclera non icteric, moist mucosa NECK: Supple, no JVD, trachea midline LUNGS: Diminished to right lower lobes clear lung sounds to the left. No wheezes, right chest tube in place HEART: Regular rate and rhythm. Normal S1 and S2, without murmurs ABD: Abdomen soft, nontender. Bowel sounds present EXT: No clubbing cyanosis or edema NEURO: Alert and oriented to person, follows commands Vital Signs (last 8hr) Date Time Temp Pulse Resp B/P (MAP) Pulse Ox O2 Delivery O2 Flow Rate FiO2 10/28/24 12:12 97.5 83 25 108/69 100 Nasal Cannula* 5 40 10/28/24 10:00 97.5 78 17 113/53 100 Non-Rebreather+ 15 100 10/28/24 08:22 97.0 85 22 104/69 100 Non-Rebreather+ 15 100 LABS: Hematology Labs: Test 10/28/24 07:08 Range/Units White Blood Count 10.0 4.8-10.8 K/uL Red Blood Count 4.65 4.50-6.20 MIL/uL Hemoglobin 14.9 14.0-18.0 g/dL Hematocrit 41.4 L 42-54 % Mean Corpuscular Volume 89.0 79-99 fL Mean Corpuscular Hemoglobin 32.0 27.0-33.0 pg Mean Corpuscular Hemoglobin Concent 36.0 32.0-36.0 g/dL Red Cell Distribution Width 11.9 11.0-15.5 % Platelet Count 175 130-400 K/uL Mean Platelet Volume 12.2 H 7.5-10.5 fL Immature Granulocyte % (Auto) 0.3 0-1 % Neutrophils (%) (Auto) 77.4 H 40.0-77.0 % Lymphocytes (%) (Auto) 11.8 L 21.0-51.0 % Monocytes (%) (Auto) 7.9 3.0-13.0 % Eosinophils (%) (Auto) 2.4 0.0-8.0 % Basophils (%) (Auto) 0.2 0.0-5.0 % Neutrophils # (Auto) 7.8 H 1.8-7.7 K/uL Lymphocytes # (Auto) 1.2 1.0-4.8 K/uL Monocytes # (Auto) 0.8 0.1-1.0 K/uL Eosinophils # (Auto) 0.24 0.00-0.70 K/uL Basophils # (Auto) 0.02 0.00-0.20 K/uL Absolute Immature Granulocyte (auto 0.03 0-1 K/uL Nucleated Red Blood Cells 0.0 0.0-0.19 % Erythrocyte Sedimentation Rate 122 H 0-20 MM/HR Chemistry Labs: Test 10/28/24 11:06 10/28/24 09:29 10/28/24 08:20 10/28/24 07:08 Range/Units Whole Blood Glucose 333 H 70-110 MG/DL Sodium Level 131 L 136-145 mmol/L Potassium Level 4.0 3.5-5.1 mmol/L Chloride Level 95 L 101-111 mmol/L Carbon Dioxide Level 25 21-32 mmol/L Blood Urea Nitrogen 18 7-18 mg/dL Creatinine 1.0 0.5-1.3 mg/dL Glomerular Filtration Rate Calc 90 >90 mL/min Random Glucose 353 H 70-105 mg/dL Total Calcium 8.4 L 8.5-10.1 mg/dL Total Bilirubin 0.4 0.2-1.0 mg/dL Aspartate Amino Transf (AST/SGOT) 34 10-37 U/L Alanine Aminotransferase (ALT/SGPT) 33 12-78 U/L Alkaline Phosphatase 89 50-136 U/L Lactate Dehydrogenase 144 81-234 U/L C-Reactive Protein, Quantitative 203.20 H 0.5-3.0 mg/L Total Protein 8.0 6.0-8.3 g/dL Albumin 2.5 L 3.5-5.0 g/dL Thyroid Stimulating Hormone (TSH) 1.05 0.36-3.74 uIU/mL Lactic Acid Level 1.7 0.8-2.5 mmol/L Hemoglobin A1c 11.5 H 4.0-6.0 % Estimated Average Glucose (eAG) 283 H 70-126 mg/dL Troponin I High Sensitivity < 4 L 4-75 ng/L Procalcitonin 0.53 H 0.05-0.5 ng/mL Coagulation Labs: Test 10/28/24 07:08 Range/Units Prothrombin Time 10.3 9.6-11.6 SEC Prothromb Time International Ratio 0.97 0.85-1.15 Activated Partial Thromboplast Time 35.1 26.3-35.5 SEC DIAGNOSTICS / RADIOLOGY RESULTS: [[facility] [address] [place] [address] IMAGING REPORT Signed PATIENT: CLAUDIA TELLO MR#: [id number] : 1970 SEX: M AGE: 53 LOCATION: [facility] ORDER 3 STATUS: ADM IN REPORT#: [id number] SERVICE 3 REASON: SOB ORDERING PHYSICIAN: TUAN LOPEZ MD PROCEDURE: CHEST WO - CT CHEST W/O CONTRAST EXAM: CT Chest Without IV contrast. CLINICAL HISTORY: SOB TECHNIQUE: Axial computed tomography images of the chest without intravenous contrast. COMPARISON: None provided. FINDINGS: LUNGS: The chest tube enters through the lateral aspect of the 4th intercostal space, with its tip abutting the cardiac mediastinum, and subcutaneous emphysema is present along the track of the chest tube. Collapse consolidation of the right lung parenchyma predominantly in the right lower lobe. Dependent left basilar atelectasis. PLEURAL SPACES: Small hydropneumothorax. HEART: No cardiomegaly. No significant pericardial effusion. LYMPH NODES: No enlarged lymphadenopathy is evident. UPPER ABDOMEN: Isodense calculus with peripheral calcification measuring 1.6 cm in the gallbladder. BONES: Mild degenerative changes in the visualised spine. No acute osseous abnormality. IMPRESSION: 1. Right hydropneumothorax with chest tube in place 2. Right lower lobe collapse consolidation 3. Subcutaneous emphysema along chest tube track /[place] DICTATED BY: YOVANI BILLS Jr., MD DATE: 10/28/24 1142 ELECTRONICALLY SIGNED BY: YOVANI BILLS Jr., MD DATE: 10/28/24 1142 ] PLAN Daily chest x-ray to monitor pneumothorax and chest tube Fluoroscopy sniff test PFTs Vital capacity test Sputum cultures Respiratory culture CBC, CMP, CRP, ESR, blood cultures Continue chest tube management in PCCU floor Chest tube to low intermittent suction at 20 cm H2O Pulmonary toileting: Incentive spirometer Q2 hours while awake Duo nebs q.6 hours PRN Pulmicort q.12 hours Empiric antibiotics azithromycin and cefepime has been added by primary team Maintain O2 sats above 92% Supplemental 02 as needed. Maintain aspiration precautions at all times ORTHO/REHAB: Continue PT/OT Prophylaxis: Continue GI and DVT prophylaxis Code Status: Full Resuscitation Disposition: Per primary Other: Total patient care time exceeds 35 minutes excluding all procedures. ATTESTATION BY PHYSICIAN I reviewed the documentation, medical decision making, and treatment plan as noted by the mid-level provider above. I agree with the findings and plan of care. Marcus Kilpatrick MD, [facility] Oct 28, 2024 16:53 MARCUS KILPATRICK MD Oct 29, 2024 16:04
[2024-10-28 17:09] LABS: AMPHET/METH SCREEN,URINE NEGATIVE (NEGATIVE); BARBITURATE SCREEN, URINE NEGATIVE (NEGATIVE); CANNABINOID SCREEN,URINE NEGATIVE (NEGATIVE); COCAINE SCREEN,URINE NEGATIVE (NEGATIVE)
--- NOTE | 2024-10-28 17:23 | NUR ---
DR VEGA INFORMED OF BG READING PER PROTOCOL. HE ADVISED TO RECHECK BG IN 2 HOURS.
[2024-10-28 17:27] LABS: APPEARANCE BODY FLUID SLIGHTLY CLOUDY (CLEAR); COLOR,BODY FLUID YELLOW (LT YELLOW); PH PLEURAL FLUID 7.5; SPECIMENTYPE,BODY FLUID PLEURAL; TOTAL VOLUME,BODY FLUID 225 mL
[2024-10-28 17:30] LABS: BODY FLUID RBC 1868 /cu. mm.; BODY FLUID WBC 4094 /cu. mm.
[2024-10-28 17:40] LABS: GLUCOSE PLEURAL FLUID 322; PROTEIN PLEURAL FLUID 4.7 mg/dL
[2024-10-28 18:22] LABS: BF BASOPHIL 1 %; BF LYMPHOCYTE 30 %; BF MACROPHAGE 2; BF MESOTHELIAL 2 %; BF MONOCYTE 5 %; BF NEUTROPHIL 60.0 %; BF TOTAL CELLS COUNTED 100
--- NOTE | 2024-10-28 18:45 | NUR ---
ATTEMPTED TO CALL REPORT
[2024-10-28 19:28] VITALS: PULSE 94; RESP 18
[2024-10-28] MEDS: BUDESONIDE 0.5 MG/2 ML INH IH SCH (20:38)
[2024-10-28 22:35] VITALS: BP 112/77; PULSE 62; RESP 20; TEMP 99.1
--- NOTE | 2024-10-28 23:27 | NUR ---
patient states does not take any home medications.
[2024-10-28 23:59] VITALS: BP 114/68; PULSE 61; RESP 20; TEMP 98.3
[2024-10-29] VITALS (11 sets, daily range): BP systolic 104–139; BP diastolic 61–80; PULSE 57–95; RESP 18–20; TEMP 97.6–98.3; O2SAT 95–100
[2024-10-29] MEDS: VANCOMYCIN 1G/250ML KIT 250 ML IV SCH (00:48)
[2024-10-29 05:22] LABS: ASPARTATE AMINOTRANSFERASE 64.0 U/L (10-37); CREATININE 0.7 mg/dL (0.5-1.3); GLOMERULAR FILTR. RATE CALC 110.0 mL/min (>90); GLUCOSE,RANDOM 288.0 mg/dL (70-105); SODIUM SERUM 135.0 mmol/L (136-145); TOTAL PROTEIN, SERUM 6.5 g/dL (6.0-8.3); UREA NITROGEN, BLOOD 16.0 mg/dL (7-18)
[2024-10-29 05:26] LABS: IMMATURE GRANULOCYTE ABSOLUTE 0.04 K/uL (0-1); NUCLEATED RED BLOOD CELLS 0.0 % (0.0-0.19); PLATELET COUNT (AUTO) 135 K/uL (130-400); RED BLOOD CELL COUNT(AUTO) 3.61 MIL/uL (4.50-6.20); RED CELL DISTRIBUTION WIDTH 11.9 % (11.0-15.5); WHITE BLOOD COUNT (AUTO) 8.4 K/uL (4.8-10.8)
--- NOTE | 2024-10-29 07:13 | PN ---
[facility] PROGRESS NOTE Date of Service: Oct 29, 2024 Time of Service: 07:05 SUBJECTIVE: 53-year-old male with history of significant tobacco use disorder (40 pack year smoking history) presented to the ER with a chief complaint of shortness of breath and chest pain for 3 days which is progressive. Chest pain is worsened with deep inspiration and cough. He denied with a history of fever , cough with sputum production. He mentioned that he has been losing his weight for last1 year but his appetite is good. Reported the long history of smoking, I started at the age of 12-13 years of old but denied any alcohol use. He has not visited to any vegetable tier before due to any respiratory issues. On presentation to the hospital, patient was noted to have T-max of 99.9 F, heart rate of 103, blood pressure of 143/80. Chest x-ray showed findings of [id number] right-sided pneumothorax. Twelve Kazakh pigtail catheter was placed in the ER relief of pneumothorax. CT chest without contrast was performed which showed findings of right-sided hydropneumothorax with right lower lobe consolidative pneumonia. He was admitted for further management. He is started on Zosyn, vancomycin and azithromycin. Pulmonology and Infectious Disease are consulted for further workup. 10/29/2024-the patient was evaluated this morning bedside. He did not complain of any acute event overnight. He feels his breathing is better now. He is hemodynamically stable and is on 2 L of oxygen. Pertinent labs for hemoglobin 11.4, ESR 122, random blood glucose 257, HbA1c 11.5. Calcium 8.5, CRP 157, albumin 2, LDH serum is 144. 225 ML of pleural fluid drained and lab result revealed LDH 1628, protein 4.7. According to light's criteria, pleural fluid seems to be exudative. MRSA screening for nasal swab was positive. On vancomycin Zosyn and azithromycin. Pulmonology at ID on the board. For newly diagnosed diabetes mellitus with HBA1c 11.5, no pulmonology is consulted. Plan of management as discussed below. REVIEW OF SYSTEMS CONSTITUTIONAL: malaise, fatigue NEUROLOGICAL: Denies headache, amaurosis fugax, motor weakness, sensory deficit ENT: No hearing loss, otalgia, rhinitis CARDIOVASCULAR: Denies any exertional angina, dyspnea on exertion PULMONARY: SOB, pleurisy SLEEP: Denies morning headaches, daytime somnolence or napping. Denies difficulty falling asleep, staying asleep, waking from sleep. Denies knowledge of snoring. GASTROINTESTINAL: Denies any type of dysphagia nausea, vomiting, abdominal pain, diarrhea, constipation GENITOURINARY: Denies frequency, urgency ENDOCRINOLOGIC: Denies polyuria, polydipsia, polyphagia HEMATOLOGIC: Denies thrombophilia/previous clots, or coagulopathy/bleeding disorders. ONCOLOGIC: Denies personal history of malignancy. DERMATOLOGIC: Denies rashes or pruritus. PSYCHIATRIC: Denies any suicidal or homicidal ideation. PHYSICAL EXAM GENERAL APPEARANCE: The patient is awake, alert, and oriented, in no acute cardiopulmonary distress. NEUROLOGICAL: Cranial nerves II-XII grossly intact. Motor is 5/5 in bilateral upper and lower extremities proximal to distal. No sensory deficits. HEENT: Face is symmetric. Pupils are equal and reactive. Extraocular movements are intact. NECK: Supple. No JVD. No thyromegaly. No submental, submandibular, pre-/postauricular, occipital or supraclavicular lymphadenopathy. CHEST: Normal chest expansion. No Telemetry. LUNGS: Decreased breath sound of the right lung base with crackles noted CARDIOVASCULAR: Regular. S1 and S2 normal. No appreciable rubs, murmurs or gallops. ABDOMEN: Soft, nontender, and nondistended. There is no rebound, voluntary guarding, or rigidity. : Deferred. No [place]urtado. EXTREMITIES: Non-edematous and not cyanotic. No clubbing. Good capillary refill. SKIN: No skin breakdown. Vital Signs (last 8hr) Date Time Temp Pulse Resp B/P (MAP) Pulse Ox O2 Delivery O2 Flow Rate FiO2 10/29/24 04:00 98.2 57 20 104/62 100 Room Air 10/29/24 02:23 97 Nasal Cannula* 4 36 10/28/24 23:59 98.2 61 20 114/68 100 Room Air LABS: Laboratory: Test 10/29/24 05:09 10/29/24 04:59 10/29/24 03:15 10/28/24 16:30 Range/Units White Blood Count 8.4 4.8-10.8 K/uL Red Blood Count 3.61 #L 4.50-6.20 MIL/uL Hemoglobin 11.4 #L 14.0-18.0 g/dL Hematocrit 32.4 #L 42-54 % Mean Corpuscular Volume 89.8 79-99 fL Mean Corpuscular Hemoglobin 31.6 27.0-33.0 pg Mean Corpuscular Hemoglobin Concent 35.2 32.0-36.0 g/dL Red Cell Distribution Width 11.9 11.0-15.5 % Platelet Count 135 130-400 K/uL Mean Platelet Volume 11.9 H 7.5-10.5 fL Immature Granulocyte % (Auto) 0.5 0-1 % Neutrophils (%) (Auto) 68.5 40.0-77.0 % Lymphocytes (%) (Auto) 20.9 L 21.0-51.0 % Monocytes (%) (Auto) 8.3 3.0-13.0 % Eosinophils (%) (Auto) 1.7 0.0-8.0 % Basophils (%) (Auto) 0.1 0.0-5.0 % Neutrophils # (Auto) 5.8 1.8-7.7 K/uL Lymphocytes # (Auto) 1.8 1.0-4.8 K/uL Monocytes # (Auto) 0.7 0.1-1.0 K/uL Eosinophils # (Auto) 0.14 0.00-0.70 K/uL Basophils # (Auto) 0.01 0.00-0.20 K/uL Absolute Immature Granulocyte (auto 0.04 0-1 K/uL Nucleated Red Blood Cells 0.0 0.0-0.19 % Whole Blood Glucose 240 H 70-110 MG/DL Bedside Glucose Comment Notified Nurse Sodium Level 135 L 136-145 mmol/L Potassium Level 3.6 3.5-5.1 mmol/L Chloride Level 103 101-111 mmol/L Carbon Dioxide Level 22 21-32 mmol/L Blood Urea Nitrogen 16 7-18 mg/dL Creatinine 0.7 0.5-1.3 mg/dL Glomerular Filtration Rate Calc 110 >90 mL/min Random Glucose 288 H 70-105 mg/dL Total Calcium 7.9 L 8.5-10.1 mg/dL Magnesium Level 2.00 1.80-2.40 mg/dL Total Bilirubin 0.3 # 0.2-1.0 mg/dL Aspartate Amino Transf (AST/SGOT) 64 H 10-37 U/L Alanine Aminotransferase (ALT/SGPT) 74 # 12-78 U/L Alkaline Phosphatase 93 50-136 U/L C-Reactive Protein, Quantitative 157.20 H 0.5-3.0 mg/L Total Protein 6.5 6.0-8.3 g/dL Albumin 2.0 L 3.5-5.0 g/dL Procalcitonin 0.39 0.05-0.5 ng/mL Body Fluid Source PLEURAL Body Fluid Volume 225 mL Body Fluid Color YELLOW LT YELLOW Body Fluid Supernatant Appearance SLIGHTLY CLOUDY CLEAR Body Fluid WBC 4094 /cu. mm. Body Fluid RBC 1868 /cu. mm. Body Fluid Neutrophils 60.0 % Body Fluid Lymphocytes 30 % Body Fluid Monocytes % 5 % Body Fluid Basophils % 1 % Body Fluid Macrophages (%) 2 Body Fluid Mesothelial Cells (%) 2 % Pleural Fluid pH 7.5 Pleural Fluid Total Protein 4.7 mg/dL Pleural Fluid LDH 1628 U/L Pleural Fluid Glucose 322 Urine Opiates Screen NEGATIVE NEGATIVE Urine Barbiturates Screen NEGATIVE NEGATIVE Urine Phencyclidine Screen NEGATIVE NEGATIVE Urine Amphetamines Screen NEGATIVE NEGATIVE Urine Benzodiazepines Screen NEGATIVE NEGATIVE Urine Cocaine Screen NEGATIVE NEGATIVE Urine Marijuana (THC) Screen NEGATIVE NEGATIVE Test 10/28/24 10:12 10/28/24 09:29 10/28/24 08:20 10/28/24 07:08 Range/Units Blood Gas Specimen Type Arterial Arterial Blood pH 7.385 7.350-7.450 Arterial Blood Partial Pressure CO2 35 35-48 mmHg Arterial Blood Partial Pressure O2 55.3 L 83.0-108.0 mmHg Arterial Blood HCO3 20.2 L 21.0-28.0 mmol/L Arterial Blood Oxygen Saturation 88.7 L 94.0-98.0 % Arterial Blood Base Excess -4.0 L -2.0-3.0 mmol/L Hemoglobin (Blood Gas) 14.9 13.5-17.5 g/dL Sodium (Blood Gas) 131 L 136-145 MMOL/L Bedside Potassium (Blood Gas) 3.7 3.4-4.5 MMOL/L Bedside Chloride (Blood Gas) 101 98-107 MMOL/L Bedside Glucose (Blood Gas) 340 H 65-95 MG/DL Bedside Ionized Calcium (Blood Gas) 1.09 L 1.15-1.33 MMOL/L Bedside Lactic Acid (Blood Gas) 1.11 H 0.36-0.75 MMOL/L Blood Gas Temperature 37.0 35.5-37.0 CELSIUS Blood Gas Vent Mode RA ROOM AIR FiO2 21.0 % Blood Gas Specimen Comment RR Lactate Dehydrogenase 144 81-234 U/L Thyroid Stimulating Hormone (TSH) 1.05 0.36-3.74 uIU/mL HIV (1&2) Antibody Non-Reactive Negative HIV P24 Antigen, Qualitative Non-Reactive Negative Lactic Acid Level 1.7 0.8-2.5 mmol/L Erythrocyte Sedimentation Rate 122 H 0-20 MM/HR Prothrombin Time 10.3 9.6-11.6 SEC Prothromb Time International Ratio 0.97 0.85-1.15 Activated Partial Thromboplast Time 35.1 26.3-35.5 SEC Hemoglobin A1c 11.5 H 4.0-6.0 % Estimated Average Glucose (eAG) 283 H 70-126 mg/dL Troponin I High Sensitivity < 4 L 4-75 ng/L Test 10/28/24 05:34 Range/Units Influenza Type A Antigen Negative For Type A NEGATIVE Influenza Type B Antigen Negative For Type B NEGATIVE SARS-CoV-2 Antigen (Rapid) PRESUMPTIVE NEGATIVE NEGATIVE Group A Streptococcus Rapid negative NEGATIVE Current Medications Medications (Trade) Dose Ordered Sig/Estela Route PRN Reason Start Time Stop Time Status Last Admin Dose Admin Acetaminophen (TYLenol 325MG TAB) 650 mg Q6H PRN PO MILD PAIN (1-3) 10/28/24 09:00 11/27/24 08:59 10/28/24 23:18 650 MG Albuterol (DUOneb) 1 udvial Q6H PRN IH SHORTNESS OF BREATH 10/28/24 09:00 11/27/24 08:59 Azithromycin 250 ml @ 250 mls/hr Q24H IVPB 10/28/24 09:00 11/07/24 08:59 10/28/24 10:32 250 MLS/HR Budesonide (Pulmicort 0.5 Mg/2ml) 0.5 mg BIDRESP IH 10/28/24 18:00 11/27/24 17:59 10/28/24 20:38 0.5 MG Cefepime HCl (MAXipime 2 gm vial) 2 gm Q12H IVPB 10/28/24 18:00 11/07/24 17:59 10/29/24 05:59 2 GM Famotidine (Pepcid 20mg Vial) 20 mg BID IV 10/28/24 09:00 11/27/24 08:59 10/28/24 20:40 20 MG Guaifenesin/ Dextromethorphan (RobiTUSSin DM 200/20MG 10ML) 10 ml Q6H PRN PO COUGH 10/28/24 09:00 11/27/24 08:59 Hydromorphone HCl (DiLAUDid 0.5MG INJ) 0.5 mg Q4H PRN IVP SEVERE PAIN (7-10) 10/28/24 09:00 11/02/24 08:59 Insulin Glargine (LANtus 100 UNITS/ML 10 ML VIAL) 12 units HS SQ 10/28/24 21:00 10/28/24 17:00 DC Insulin Glargine (LANtus 100 UNITS/ML 10 ML VIAL) 15 units HS SQ 10/28/24 21:00 11/27/24 20:59 10/28/24 20:44 15 UNITS Insulin Human Regular (humuLIN R 100 UNIT/ML 3ML) INSULIN SLIDING SCAL... ACHS SQ 10/28/24 11:30 11/27/24 11:29 10/29/24 06:27 4 UNIT Ketorolac Tromethamine (toRADol) 15 mg Q12H PRN IV MODERATE PAIN (4-6) 10/28/24 09:00 10/30/24 09:00 10/29/24 01:32 15 MG Nicotine (Nicoderm) 14 mg DAILY TD 10/29/24 09:00 11/28/24 08:59 Ondansetron HCl (zoFRAN 4MG INJ) 4 mg Q6H PRN IVP NAUSEA/VOMITING 10/28/24 09:00 11/27/24 08:59 Sodium Chloride 1,000 ml @ 100 mls/hr Q10H IV 10/28/24 09:00 11/27/24 08:59 10/29/24 00:45 100 MLS/HR Thiamine HCl (Vitamin B-1) 100 mg Q24H IVP 10/28/24 09:00 11/27/24 08:59 10/28/24 10:33 100 MG Vancomycin HCl 250 ml @ 125 mls/hr Q12H IV 10/29/24 01:00 11/08/24 00:59 10/29/24 00:48 125 MLS/HR Vancomycin HCl (Vancomycin Protocol) 1 each AD IV 10/28/24 11:00 11/11/24 10:59 DIAGNOSTICS / RADIOLOGY: PATIENT: CLAUDIA TELLO MR#: [id number] : 1970 SEX: M AGE: 53 LOCATION: [facility] ORDER 3 STATUS: ADM IN REPORT#: [id number] SERVICE 3 REASON: SOB ORDERING PHYSICIAN: TUAN LOPEZ MD PROCEDURE: CHEST WO - CT CHEST W/O CONTRAST EXAM: CT Chest Without IV contrast. CLINICAL HISTORY: SOB TECHNIQUE: Axial computed tomography images of the chest without intravenous contrast. COMPARISON: None provided. FINDINGS: LUNGS: The chest tube enters through the lateral aspect of the 4th intercostal space, with its tip abutting the cardiac mediastinum, and subcutaneous emphysema is present along the track of the chest tube. Collapse consolidation of the right lung parenchyma predominantly in the right lower lobe. Dependent left basilar atelectasis. PLEURAL SPACES: Small hydropneumothorax. HEART: No cardiomegaly. No significant pericardial effusion. LYMPH NODES: No enlarged lymphadenopathy is evident. UPPER ABDOMEN: Isodense calculus with peripheral calcification measuring 1.6 cm in the gallbladder. BONES: Mild degenerative changes in the visualised spine. No acute osseous abnormality. IMPRESSION: 1. Right hydropneumothorax with chest tube in place 2. Right lower lobe collapse consolidation 3. Subcutaneous emphysema along chest tube track /[place] DICTATED BY: YOVANI BILLS Jr., MD DATE: 10/28/24 114 ELECTRONICALLY SIGNED BY: YOVANI BILLS Jr., MD DATE: 10/28/24 114 PATIENT: CLAUDIA TELLO MR#: [id number] : 1970 SEX: M AGE: 53 LOCATION: [facility] ORDER STATUS: ADM IN REPORT#: [id number] SERVICE [id number] REASON: s/p chest tube ORDERING PHYSICIAN: TUAN LOPEZ MD PROCEDURE: CXR1VW - CHEST 1VW EXAM: CR Chest, 1 View. CLINICAL HISTORY: s/p chest tube COMPARISON: Radiograph dated October 28, 2024 Findings: AP view of the chest. Interval placement of a chest tube, which overlies the right lung base. Small residual right anterior pneumothorax. Right basilar atelectasis and/are an infectious/inflammatory process. Mild airspace disease at the left lung base may reflect atelectasis. Small right pleural effusion. Heart size is stable. Pulmonary vessels are within normal limits. IMPRESSION: 1. Small residual right anterior pneumothorax with interval chest tube placement. 2. Right basilar opacity, may represent atelectasis versus infection/inflammation. 3. Left basilar atelectasis. /[place] DICTATED BY: YOVANI BILLS Jr., MD DATE: 10/28/24 1028 ELECTRONICALLY SIGNED BY: YOVANI BILLS Jr., MD DATE: 10/28/24 1028 ASSESSMENT: Right lower lobe consolidative pneumonia, POA Moderate to large right-sided pneumothorax status post chest tube placement POA Right-sided hydropneumothorax, POA Newly diagnosed diabetes mellitus, POA Rule out chronic COPD of the lungs, POA Anemia POA Tobacco use disorder long-term smoking history, POA PLAN: Right lower lobe consolidative pneumonia, POA Moderate to large right-sided pneumothorax status post chest tube placement POA Right-sided hydropneumothorax, POA -on admission chest x-ray revealed [id number] right-sided pneumothorax, 2 Kazakh pigtail was placed. Post tube placement, CT chest revealed right-sided hydropneumothorax with collapse consolidation. The hydropneumothorax may be secondary to pneumonia. CRP 157, procalcitonin 0.39, ESR 122, pleural fluid LDL is 1628 pleural fluid protein 4.7. Pleural effusion seems to be exudative of was in nature as per light's criteria. -empirically started on cefepime, vancomycin and azithromycin. -oxygen supplementation for O2 saturation above 92 per -continue on chest tube management -pleural fluid drained was sent for the labs including culture and Gram staining. -started on Pulmicort q.12 hours and duo nebs q.6 hours PRN. Toradol for pain PRN -pulmonology and Infectious Disease consulted. We will follow the recommendations. -we will monitor clinical improvement along with interval chest x-ray and repeat labs. Newly diagnosed diabetes mellitus, POA -elevated blood glucose, recorded highest at 389, HGB A1c 11.5 -currently started on 10 units of Lantus at night,3 units of regular insulin3 times with meal. Low-dose sliding scale insulin -we will consult Endocrinology. -we will monitor blood glucose closely. Tobacco use disorder long-term smoking history, POA -long history of extensive smoking, pack year 40 -placed on nicotine patch -we will encourage patient for smoking cessation -we will monitor signs of withdrawal. Anemia -hemoglobin this morning 11.4, iron 29, TIBC 191, saturation 15.1, ferritin 3282 -we will monitor hemoglobin. Rule out chronic COPD of the lungs, POA -long history of extensive smoking with pack year 40, patient may have COPD with some degree of shortness of breath at baseline -started on Pulmicort q.12 hours and duo nebs q.6 hours PRN we will for SOB as well -need to get pulmonology function test at some point of time to rule out COPD. Tobacco use disorder long-term smoking history, POA -long history of extensive smoking, pack year 40 -we will encourage patient for smoking cessation -we will monitor signs of withdrawal. GI prophylaxis: Famotidine DVT prophylaxis: SCD Status: Full code ATTESTATION BY PHYSICIAN I have seen and examined the patient. I reviewed the documentation, medical decision making, and treatment plan as noted by the resident provider above. I agree with the findings and plan of care. Arnaldo Deras MD, SUNIL MD Oct 29, 2024 07:13
[2024-10-29] MEDS: NICOTINE 14 MG/ 24 HR PATCH TD SCH (08:26)
--- NOTE | 2024-10-29 11:48 | NUR ---
CHEST TUBE 1148-DIRECTOR OF SOFTWARE ENGINEERING CALLED AND STATED THAT SHE NOTICED CHEST TUBE OUT. THIS RN WENT TO EVALUATE AND FOUND CHEST TUBE TUBING COMPLETELY OUT. PATIENT DOES NOT RECALL WHEN IT WAS PULLED OR CAME OUT. PATIENT STATES HE HAD VISITORS HERE AND THEY SAT NEXT TO HIM, BUT HE HAD NOT NOTICED THE CHEST TUBE TUBING. DRESSING APPLIED AND CHARGE NURSE NOTIFIED. HOSPITALIST TEAM PAGED. PATIENT PLACED ON NON-REBREATHER. PATIENT DENIES SHORTNESS OF BREATHE, SPO2 AT 100% ON NON-REBREATHER. 1202-RESIDENT AND DR. VILLELA HERE ON FLOOR. EXPLAINED SITUATION CONCERNING PATIENT. DR. VILLELA STATED HE WOULD TALK TO JAHAIRA MORENO FROM [facility] ABOUT PATIENT'S CURRENT STATUS AND CHEST X-RAY.
[2024-10-29 12:06] LABS: % IRON SATURATION 15.1 % (30-44); IRON, SERUM 29.0 mcg/dL (65-175)
--- NOTE | 2024-10-29 12:37 | PN ---
[facility] PROGRESS NOTE Date Patient Seen: Oct 29, 2024 Time of Visit: 12:37 Supervising Physician: Lázaro Kilpatrick MD Primary Care Physician: Self Referral Outpatient Specialists: None Inpatient Consults: Dr Preston CLARK MD Attending Physician: Dr. Finesse KENT PROBLEM LIST: Acute hypoxic respiratory failure 2/2 to be low, POA [id number] hydro pneumothorax with chest tube placed in ER, 10/28/2024 right lower lobe collapse consolidation with the atelectasis Suspected right hemidiaphragm paralysis, POA Concern for complicated parapneumonic effusion/empyema with right-sided hydropneumothorax, POA Right lower lobe consolidative pneumonia, POA History of poorly controlled two diabetes mellitus, POA Tobacco use disorder long-term smoking history, POA Rule out chronic COPD of the lungs, POA Obesity BMI 34 Nicotine abuse 40 pack year smoker Plan summary: Consider Bronchoscoy if Sniff test rule out elevated paralyzed rt diaphragm Fluoroscopy sniff test pending PFTs pending Vital capacity test pending Sputum cultures Respiratory culture Pulmonary toileting: Incentive spirometer Q2 hours while awake Duo nebs q.6 hours PRN Pulmicort q.12 hours Empiric antibiotics azithromycin and cefepime has been added by primary team Maintain O2 sats above 92% Supplemental 02 as needed. Maintain aspiration precautions at all times INTERVAL HISTORY: Per patient chest tube accidentally came out. He is in no apparent distress. There is no signs of subcutaneous emphysema palpated. CT of the chest ordered to evaluate and is reports large consolidations in the right middle lobe and right lower lobe consistent with a ammonia stable compared to prior CT of the chest large right pleural effusion increased compared to prior CT of the chest 10/2024 consider thoracentesis.Likely from elevated diaph ragm. No need to reinsert chest tube at this time. awaiting sniff test. depending on the results we will consider a bronchoscopy. REVIEW OF SYSTEMS: Const: no fever, fatigue, + weight loss+ chills Eyes: no recent vision problems ENT: No congestion, ear pain, or sore throat C/V: no chest pain, palpitations or edema Resp: +No cough, congestion, wheezing , + Shortness of breath GI: No abdominal pain, nausea, vomiting, constipation, or diarrhea : No incontinence of or dyuria M/S: No joint or pain swelling Skin: No rash Neuro: no headache, focal numbness, or weakness, dizziness or seizures Psych: no depression or anxiety Heme: no abnormal bruising or bleeding Lymph: no swollen glands PHYSICAL EXAM: GENERAL: alert, weak, awake oriented x 3 HEENT: EOMI, Sclera non icteric, moist mucosa NECK: Supple, no JVD, trachea midline LUNGS: Diminished to right lower lobes clear lung sounds to the left. No wheezes, right chest tube in place HEART: Regular rate and rhythm. Normal S1 and S2, without murmurs ABD: Abdomen soft, nontender. Bowel sounds present EXT: No clubbing cyanosis or edema NEURO: Alert and oriented to person, follows commands Vital Signs (last 8hr) Date Time Temp Pulse Resp B/P (MAP) Pulse Ox O2 Delivery O2 Flow Rate FiO2 10/29/24 12:00 97.7 95 18 139/63 96 Nonrebreathing Mask 10/29/24 08:25 96 Nasal Cannula* 4 36 10/29/24 08:00 97.5 64 18 106/80 98 Nasal Cannula 4.0 10/29/24 07:26 75 18 N/Cannula Low lpm 4.0 10/29/24 07:25 75 18 LABS: Hematology Labs: Test 10/29/24 11:00 10/29/24 05:09 10/28/24 07:08 Range/Units Reticulocyte Count (auto) 1.02053 0.42-2.23 % Immature Reticulocyte Fraction 10.30 H 0.18-0.48 % White Blood Count 8.4 4.8-10.8 K/uL Red Blood Count 3.61 #L 4.50-6.20 MIL/uL Hemoglobin 11.4 #L 14.0-18.0 g/dL Hematocrit 32.4 #L 42-54 % Mean Corpuscular Volume 89.8 79-99 fL Mean Corpuscular Hemoglobin 31.6 27.0-33.0 pg Mean Corpuscular Hemoglobin Concent 35.2 32.0-36.0 g/dL Red Cell Distribution Width 11.9 11.0-15.5 % Platelet Count 135 130-400 K/uL Mean Platelet Volume 11.9 H 7.5-10.5 fL Immature Granulocyte % (Auto) 0.5 0-1 % Neutrophils (%) (Auto) 68.5 40.0-77.0 % Lymphocytes (%) (Auto) 20.9 L 21.0-51.0 % Monocytes (%) (Auto) 8.3 3.0-13.0 % Eosinophils (%) (Auto) 1.7 0.0-8.0 % Basophils (%) (Auto) 0.1 0.0-5.0 % Neutrophils # (Auto) 5.8 1.8-7.7 K/uL Lymphocytes # (Auto) 1.8 1.0-4.8 K/uL Monocytes # (Auto) 0.7 0.1-1.0 K/uL Eosinophils # (Auto) 0.14 0.00-0.70 K/uL Basophils # (Auto) 0.01 0.00-0.20 K/uL Absolute Immature Granulocyte (auto 0.04 0-1 K/uL Nucleated Red Blood Cells 0.0 0.0-0.19 % Erythrocyte Sedimentation Rate 122 H 0-20 MM/HR Chemistry Labs: Test 10/29/24 11:48 10/29/24 11:00 10/29/24 04:59 10/29/24 03:15 Range/Units Whole Blood Glucose 257 H 70-110 MG/DL Iron Level 29 L 65-175 mcg/dL Total Iron Binding Capacity 191 L 250-450 mcg/dL Percent Iron Saturation 15.1 L 30-44 % Ferritin 3282 H 30-400 ng/mL Vitamin B12 Level 454 193-986 pg/mL Bedside Glucose Comment Notified Nurse Sodium Level 135 L 136-145 mmol/L Potassium Level 3.6 3.5-5.1 mmol/L Chloride Level 103 101-111 mmol/L Carbon Dioxide Level 22 21-32 mmol/L Blood Urea Nitrogen 16 7-18 mg/dL Creatinine 0.7 0.5-1.3 mg/dL Glomerular Filtration Rate Calc 110 >90 mL/min Random Glucose 288 H 70-105 mg/dL Total Calcium 7.9 L 8.5-10.1 mg/dL Magnesium Level 2.00 1.80-2.40 mg/dL Total Bilirubin 0.3 # 0.2-1.0 mg/dL Aspartate Amino Transf (AST/SGOT) 64 H 10-37 U/L Alanine Aminotransferase (ALT/SGPT) 74 # 12-78 U/L Alkaline Phosphatase 93 50-136 U/L C-Reactive Protein, Quantitative 157.20 H 0.5-3.0 mg/L Total Protein 6.5 6.0-8.3 g/dL Albumin 2.0 L 3.5-5.0 g/dL Procalcitonin 0.39 0.05-0.5 ng/mL Test 10/28/24 09:29 10/28/24 08:20 10/28/24 07:08 Range/Units Lactate Dehydrogenase 144 81-234 U/L Thyroid Stimulating Hormone (TSH) 1.05 0.36-3.74 uIU/mL Lactic Acid Level 1.7 0.8-2.5 mmol/L Hemoglobin A1c 11.5 H 4.0-6.0 % Estimated Average Glucose (eAG) 283 H 70-126 mg/dL Troponin I High Sensitivity < 4 L 4-75 ng/L Coagulation Labs: Test 10/28/24 07:08 Range/Units Prothrombin Time 10.3 9.6-11.6 SEC Prothromb Time International Ratio 0.97 0.85-1.15 Activated Partial Thromboplast Time 35.1 26.3-35.5 SEC DIAGNOSTICS / RADIOLOGY RESULTS: [ ] [address] [address] IMAGING REPORT Signed PATIENT: CLAUDIA TELLO MR#: [id number] : 1970 SEX: M AGE: 53 LOCATION: [facility] ORDER 24 STATUS: ADM IN REPORT#: [id number] SERVICE 23 REASON: rule out pneumo ORDERING PHYSICIAN: JOSH GALVAN PROCEDURE: CHEST WO - CT CHEST W/O CONTRAST EXAM: CT Chest With Intravenous Contrast. CLINICAL HISTORY: 53-year-old male, rule out pneumonia TECHNIQUE: Axial computed tomography images of the chest with intravenous contrast. Dose reduction technique was used including one or more of the following: automated exposure control, adjustment of mA and kV according to patient size, and/or iterative reconstruction. COMPARISON: CT Chest 10/28/2024 FINDINGS: LUNGS: Large consolidations in the right middle lobe and right lower lobe are seen consistent with pneumonia. PLEURAL SPACES: Moderate right pleural effusion which is increased compared to the prior CT Chest 10/28/2024. Consider thoracentesis. No CT evidence for pneumothorax. HEART AND MEDIASTINUM: No cardiomegaly. No significant pericardial effusion. Mediastinal and hilar lymphadenopathy is present. LYMPH NODES: Mediastinal and hilar lymphadenopathy is present. CHEST WALL AND UPPER ABDOMEN: The upper abdominal solid organs are unremarkable. The chest wall is unremarkable. BONES: No acute osseous abnormality. IMPRESSION: 1. Large consolidations in the right middle lobe and right lower lobe, consistent with pneumonia, stable compared to prior CT Chest 10/28/2024. 2. Large right pleural effusion, increased compared to prior CT Chest 10/28/2024. Consider thoracentesis. /[place] DICTATED BY: KLARISSA HDZ MD DATE: 10/29/241735 ELECTRONICALLY SIGNED BY: KLARISSA HDZ MD DATE: 10/29/241735 PLAN Plan summary: Consider Bronchoscoy if Sniff test rule out elevated paralyzed rt diaphragm Fluoroscopy sniff test pending PFTs pending Vital capacity test pending Sputum cultures Respiratory culture Pulmonary toileting: Incentive spirometer Q2 hours while awake Duo nebs q.6 hours PRN Pulmicort q.12 hours Empiric antibiotics azithromycin and cefepime has been added by primary team Maintain O2 sats above 92% Supplemental 02 as needed. Maintain aspiration precautions at all times ORTHO/REHAB: Continue PT/OT Prophylaxis: Continue GI and DVT prophylaxis Code Status: Full Resuscitation Disposition: Per primary Other: Total patient care time exceeds 35 minutes excluding all procedures. ATTESTATION BY PHYSICIAN I reviewed the documentation, medical decision making, and treatment plan as noted by the mid-level provider above. I agree with the findings and plan of care. Lázaro Kilpatrick MD, NELLY J [facility] Oct 29, 2024 12:37
--- NOTE | 2024-10-29 13:15 | HMCIMG ---
EXAM: CR Chest, 2 View. CLINICAL HISTORY: CHEST TUBE OUT COMPARISON: Radiograph from earlier today FINDINGS: Right chest tube has been removed. Interval increased right perihilar and right basilar airspace disease, and moderate right pleural effusion. The left lung remains relatively clear. Heart size is stable. Persistent pulmonary vascular congestion. There is no pneumothorax appreciated. IMPRESSION: 1. Interval worsening right perihilar and basilar airspace disease with moderate right pleural effusion 2. Pulmonary vascular congestion /[place]
--- NOTE | 2024-10-29 14:09 | HMCIMG ---
EXAM: CR Chest, 1 View. CLINICAL HISTORY: chest tube COMPARISON: Radiograph from October 28, 2024 Findings: AP view of the chest is submitted. Tubing overlies the right hemithorax. Interval improved aeration within the right perihilar and right basilar regions. Interval decrease small to moderate right pleural effusion. Mild left basilar airspace disease is presumed to reflect atelectasis. Heart size is stable. Mild central pulmonary vascular congestion. IMPRESSION: 1. Improving right pleural effusion with improved right perihilar and basilar aeration. 2. Left basilar atelectasis. 3. Mild central pulmonary vascular congestion. /[place]
--- NOTE | 2024-10-29 16:38 | HMCIMG ---
EXAM: CT Chest With Intravenous Contrast. CLINICAL HISTORY: 53-year-old male, rule out pneumonia TECHNIQUE: Axial computed tomography images of the chest with intravenous contrast. Dose reduction technique was used including one or more of the following: automated exposure control, adjustment of mA and kV according to patient size, and/or iterative reconstruction. COMPARISON: CT Chest 10/28/2024 FINDINGS: LUNGS: Large consolidations in the right middle lobe and right lower lobe are seen consistent with pneumonia. PLEURAL SPACES: Moderate right pleural effusion which is increased compared to the prior CT Chest 10/28/2024. Consider thoracentesis. No CT evidence for pneumothorax. HEART AND MEDIASTINUM: No cardiomegaly. No significant pericardial effusion. Mediastinal and hilar lymphadenopathy is present. LYMPH NODES: Mediastinal and hilar lymphadenopathy is present. CHEST WALL AND UPPER ABDOMEN: The upper abdominal solid organs are unremarkable. The chest wall is unremarkable. BONES: No acute osseous abnormality. IMPRESSION: 1. Large consolidations in the right middle lobe and right lower lobe, consistent with pneumonia, stable compared to prior CT Chest 10/28/2024. 2. Large right pleural effusion, increased compared to prior CT Chest 10/28/2024. Consider thoracentesis. /[place]
--- NOTE | 2024-10-29 22:07 | CONS ---
CONSULT NOTE: Endocrinology Consult Chief complaint: SOB Reason for consult: newly diagnosed dm-2 DOS: 10/29/24 HISTORY OF PRESENT ILLNESS: 53-year-old male with history of significant tobacco use disorder (40 pack year smoking history), who presented to the ER for further evaluation of shortness of breath, cough and pleurisy. Symptoms have been ongoing for the past three days and patient states that shortness of breath worsened overnight. He has been having subjective malaise as well. Denies any fevers or chills. Reports having long-time history of smoking and started smoking since the age of 12-13. Smokes about a pack a day with last cigarette use being on Tuesday. Denies any significant alcohol consumption or illicit drug use. On presentation to the hospital, patient was noted to have T-max of 99.9 F, heart rate of 103, blood pressure of 143/80. Chest x-ray showed findings of [id number] right-sided pneumothorax. Twelve [place] pigtail catheter was placed in the ER relief of pneumothorax. CT chest without contrast was performed which showed findings of right-sided hydropneumothorax with right lower lobe consolidative pneumonia. Home diabetic regimen: newly diagnosed diabetes Hba1c 11.6% REVIEW OF SYSTEMS CONSTITUTIONAL: malaise, fatigue NEUROLOGICAL: Denies headache, amaurosis fugax, motor weakness, sensory deficit, vertigo/spinning sensation, gait abnormalities, or tremors. ENT: No hearing loss, otalgia, otorrhea, rhinitis, rhinorrhea, hoarseness, or sore throat. CARDIOVASCULAR: Denies any exertional angina, dyspnea on exertion, orthopnea, paroxysmal nocturnal dyspnea, palpitations, life-threatening arrhythmias, claudication. PULMONARY: SOB, pleurisy SLEEP: Denies morning headaches, daytime somnolence or napping. Denies difficulty falling asleep, staying asleep, waking from sleep. Denies knowledge of snoring. GASTROINTESTINAL: Denies any type of dysphagia to either liquids or solids. Denies nausea, vomiting, pyrosis, early satiety, abdominal pain, diarrhea, constipation, or changes in stool consistency or caliber. Denies coffee-ground emesis, hematemesis, hematochezia, or melanotic stools. GENITOURINARY: Denies frequency, urgency, nocturia, hematuria or incontinence (Storage/Irritative symptoms.) Low urinary stream, straining to void, urinary intermittency or hesitancy, splitting of the voiding stream, terminal dribbling. ENDOCRINOLOGIC: Denies polyuria, polydipsia, polyphagia or heat/cold intolerances. HEMATOLOGIC: Denies thrombophilia/previous clots, or coagulopathy/bleeding disorders. ONCOLOGIC: Denies personal history of malignancy. DERMATOLOGIC: Denies rashes or pruritus. PSYCHIATRIC: Denies any suicidal or homicidal ideation. Denies hallucinations. PAST MEDICAL HISTORY: Tobacco use disorder PAST SURGICAL HISTORY: Denies history of major surgeries previously PAST SOCIAL HISTORY: Patient smokes about a pack a day for 40 years, drinks socially, denies any other illicit drug use FAMILY HISTORY: Denies history of major family history Allergies: No known drug allergies Coded Allergies: No Known Drug Allergies (Unverified Allergy, Unknown, 10/17/23) PHYSICAL EXAM GENERAL APPEARANCE: The patient is awake, alert, and oriented, in no acute cardiopulmonary distress. NEUROLOGICAL: Cranial nerves II-XII grossly intact. Motor is 5/5 in bilateral upper and lower extremities proximal to distal. No sensory deficits. HEENT: Face is symmetric. Pupils are equal and reactive. Extraocular movements are intact. NECK: Supple. No JVD. No thyromegaly. No submental, submandibular, pre- /postauricular, occipital or supraclavicular lymphadenopathy. CHEST: Normal chest expansion. No Telemetry. LUNGS: Decreased breath sound of the right lung base with crackles noted CARDIOVASCULAR: Regular. S1 and S2 normal. No appreciable rubs, murmurs or gallops. ABDOMEN: Soft, nontender, and nondistended. There is no rebound, voluntary guarding, or rigidity. : Deferred. No [place]. EXTREMITIES: Non-edematous and not cyanotic. No clubbing. Good capillary refill. SKIN: No skin breakdown. DIAGNOSTICS / RADIOLOGY: SERVICE 0824 REASON: SOB ORDERING PHYSICIAN: TUAN LOPEZ MD PROCEDURE: CHEST WO - CT CHEST W/O CONTRAST EXAM: CT Chest Without IV contrast. CLINICAL HISTORY: SOB TECHNIQUE: Axial computed tomography images of the chest without intravenous contrast. COMPARISON: None provided. FINDINGS: LUNGS: The chest tube enters through the lateral aspect of the 4th intercostal space, with its tip abutting the cardiac mediastinum, and subcutaneous emphysema is present along the track of the chest tube. Collapse consolidation of the right lung parenchyma predominantly in the right lower lobe. Dependent left basilar atelectasis. PLEURAL SPACES: Small hydropneumothorax. HEART: No cardiomegaly. No significant pericardial effusion. LYMPH NODES: No enlarged lymphadenopathy is evident. UPPER ABDOMEN: Isodense calculus with peripheral calcification measuring 1.6 cm in the gallbladder. BONES: Mild degenerative changes in the visualised spine. No acute osseous abnormality. IMPRESSION: 1. Right hydropneumothorax with chest tube in place 2. Right lower lobe collapse consolidation 3. Subcutaneous emphysema along chest tube track /[place] DICTATED BY: YOVANI BILLS Jr., MD DATE: 10/28/24 114 ELECTRONICALLY SIGNED BY: YOVANI BILLS Jr., MD DATE: 10/28/24 114 ASSESSMENT: Home diabetic regimen: newly diagnosed diabetes Hba1c 11.6% glucose are improving now. Moderate to large right-sided pneumothorax status post chest tube placement in the ER, 10/28/2024 Concern for complicated parapneumonic effusion/empyema with right-sided hydropneumothorax, POA Right lower lobe consolidative pneumonia, POA newly diagnosed poorly controlled two diabetes mellitus, POA Tobacco use disorder long-term smoking history, POA Rule out chronic COPD of the lungs, POA PLAN: continue lantus 15 units daily and adjust for fasting glucose. start Regular insulin 5 units daily and adjust for post-prandial glucose. decrease ssi to medium dose sliding scale insulin. Monitor glucose q x 6 hourly. Continue carb consistent diet. Keep glucose less than 180 mg/dl. Patient will need lantus and metformin at discharge. Thanks for allowing me to participate in patient care and will continue to follow up. Electronically Co-Signed by: Vital Signs 10/29/24 10/29/24 11:50 20:00 Temp 98.2 Pulse 74 Resp 18 B/P (MAP) 104/61 Pulse Ox 99 O2 Delivery Nasal Cannula O2 Flow Rate 4.0 FiO2 36 Hematology Labs: Test 10/29/24 11:00 10/29/24 05:09 10/28/24 07:08 Range/Units Reticulocyte Count (auto) 1.84265 0.42-2.23 % Immature Reticulocyte Fraction 10.30 H 0.18-0.48 % White Blood Count 8.4 4.8-10.8 K/uL Red Blood Count 3.61 #L 4.50-6.20 MIL/uL Hemoglobin 11.4 #L 14.0-18.0 g/dL Hematocrit 32.4 #L 42-54 % Mean Corpuscular Volume 89.8 79-99 fL Mean Corpuscular Hemoglobin 31.6 27.0-33.0 pg Mean Corpuscular Hemoglobin Concent 35.2 32.0-36.0 g/dL Red Cell Distribution Width 11.9 11.0-15.5 % Platelet Count 135 130-400 K/uL Mean Platelet Volume 11.9 H 7.5-10.5 fL Immature Granulocyte % (Auto) 0.5 0-1 % Neutrophils (%) (Auto) 68.5 40.0-77.0 % Lymphocytes (%) (Auto) 20.9 L 21.0-51.0 % Monocytes (%) (Auto) 8.3 3.0-13.0 % Eosinophils (%) (Auto) 1.7 0.0-8.0 % Basophils (%) (Auto) 0.1 0.0-5.0 % Neutrophils # (Auto) 5.8 1.8-7.7 K/uL Lymphocytes # (Auto) 1.8 1.0-4.8 K/uL Monocytes # (Auto) 0.7 0.1-1.0 K/uL Eosinophils # (Auto) 0.14 0.00-0.70 K/uL Basophils # (Auto) 0.01 0.00-0.20 K/uL Absolute Immature Granulocyte (auto 0.04 0-1 K/uL Nucleated Red Blood Cells 0.0 0.0-0.19 % Erythrocyte Sedimentation Rate 122 H 0-20 MM/HR Chemistry Labs: Test 10/29/24 20:11 10/29/24 11:00 10/29/24 04:59 10/29/24 03:15 Range/Units Whole Blood Glucose 180 H 70-110 MG/DL Iron Level 29 L 65-175 mcg/dL Total Iron Binding Capacity 191 L 250-450 mcg/dL Percent Iron Saturation 15.1 L 30-44 % Ferritin 3282 H 30-400 ng/mL Vitamin B12 Level 454 193-986 pg/mL Bedside Glucose Comment Notified Nurse Sodium Level 135 L 136-145 mmol/L Potassium Level 3.6 3.5-5.1 mmol/L Chloride Level 103 101-111 mmol/L Carbon Dioxide Level 22 21-32 mmol/L Blood Urea Nitrogen 16 7-18 mg/dL Creatinine 0.7 0.5-1.3 mg/dL Glomerular Filtration Rate Calc 110 >90 mL/min Random Glucose 288 H 70-105 mg/dL Total Calcium 7.9 L 8.5-10.1 mg/dL Magnesium Level 2.00 1.80-2.40 mg/dL Total Bilirubin 0.3 # 0.2-1.0 mg/dL Aspartate Amino Transf (AST/SGOT) 64 H 10-37 U/L Alanine Aminotransferase (ALT/SGPT) 74 # 12-78 U/L Alkaline Phosphatase 93 50-136 U/L C-Reactive Protein, Quantitative 157.20 H 0.5-3.0 mg/L Total Protein 6.5 6.0-8.3 g/dL Albumin 2.0 L 3.5-5.0 g/dL Procalcitonin 0.39 0.05-0.5 ng/mL Test 10/28/24 09:29 10/28/24 08:20 10/28/24 07:08 Range/Units Lactate Dehydrogenase 144 81-234 U/L Carcinoembryonic Antigen 2.3 0.0-4.7 ng/mL Thyroid Stimulating Hormone (TSH) 1.05 0.36-3.74 uIU/mL Lactic Acid Level 1.7 0.8-2.5 mmol/L Hemoglobin A1c 11.5 H 4.0-6.0 % Estimated Average Glucose (eAG) 283 H 70-126 mg/dL Troponin I High Sensitivity < 4 L 4-75 ng/L Coagulation Labs: Test 10/28/24 07:08 Range/Units Prothrombin Time 10.3 9.6-11.6 SEC Prothromb Time International Ratio 0.97 0.85-1.15 Activated Partial Thromboplast Time 35.1 26.3-35.5 SEC Current Medications Medications (Trade) Dose Ordered Sig/Estela Route Start Time Stop Time Status Last Admin Dose Admin Azithromycin 250 ml @ 250 mls/hr Q24H IVPB 10/28/24 09:00 11/07/24 08:59 10/29/24 08:25 250 MLS/HR Budesonide (Pulmicort 0.5 Mg/2ml) 0.5 mg BIDRESP IH 10/28/24 18:00 11/27/24 17:59 10/29/24 18:52 0.5 MG Cefepime HCl (MAXipime 2 gm vial) 2 gm Q12H IVPB 10/28/24 18:00 11/07/24 17:59 10/29/24 17:16 2 GM Famotidine (Pepcid 20mg Vial) 20 mg BID IV 10/28/24 09:00 11/27/24 08:59 10/29/24 20:40 20 MG Insulin Glargine (LANtus 100 UNITS/ML 10 ML VIAL) 12 units HS SQ 10/28/24 21:00 10/28/24 17:00 DC Insulin Glargine (LANtus 100 UNITS/ML 10 ML VIAL) 15 units HS SQ 10/28/24 21:00 11/27/24 20:59 10/29/24 20:51 15 UNITS Insulin Human Regular (humuLIN R 100 UNIT/ML 3ML) INSULIN SLIDING SCAL... ACHS SQ 10/28/24 11:30 10/29/24 07:42 DC 10/29/24 06:27 4 UNIT Insulin Human Regular (humuLIN R 100 UNIT/ML 3ML) INSULIN SLIDING SCAL... ACHS SQ 10/29/24 11:30 11/28/24 11:29 10/29/24 20:52 4 UNIT Nicotine (Nicoderm) 14 mg DAILY TD 10/29/24 09:00 11/28/24 08:59 10/29/24 08:26 14 MG Sodium Chloride 1,000 ml @ 100 mls/hr Q10H IV 10/28/24 09:00 10/29/24 10:34 DC 10/29/24 00:45 100 MLS/HR Thiamine HCl (Vitamin B-1) 100 mg Q24H IVP 10/28/24 09:00 11/27/24 08:59 10/29/24 08:26 100 MG Vancomycin HCl 250 ml @ 125 mls/hr Q12H IV 10/29/24 01:00 11/08/24 00:59 10/29/24 13:12 125 MLS/HR Vancomycin HCl (Vancomycin Protocol) 1 each AD IV 10/28/24 11:00 11/11/24 10:59 SHUKRI ROBLES MD Oct 29, 2024 22:07
[2024-10-30] VITALS (10 sets, daily range): BP systolic 105–121; BP diastolic 50–67; PULSE 74–95; RESP 18–20; TEMP 98–98.8; O2SAT 96–99
[2024-10-30 03:56] LABS: IMMATURE GRANULOCYTE ABSOLUTE 0.04 K/uL (0-1); NUCLEATED RED BLOOD CELLS 0.0 % (0.0-0.19); PLATELET COUNT (AUTO) 154 K/uL (130-400); RED BLOOD CELL COUNT(AUTO) 3.77 MIL/uL (4.50-6.20); RED CELL DISTRIBUTION WIDTH 12.0 % (11.0-15.5); WHITE BLOOD COUNT (AUTO) 7.6 K/uL (4.8-10.8)
[2024-10-30 04:23] LABS: CREATININE 0.5 mg/dL (0.5-1.3); GLOMERULAR FILTR. RATE CALC 122.0 mL/min (>90); GLUCOSE,RANDOM 147.0 mg/dL (70-105); SODIUM SERUM 134.0 mmol/L (136-145); UREA NITROGEN, BLOOD 9.0 mg/dL (7-18)
--- NOTE | 2024-10-30 05:03 | NUR ---
call placed to hospitalist underwriting consultant to report critical potassium of 2.8. Spoke to Ysabel winkler hardware engineer. Received orders for potassium 20meq replacement protocol and add magnesium to am labs. Also protocol for IV magnesium replacement.
[2024-10-30] MEDS: PoTASSium chloRIDE 20MEQ ER 20 MEQ ERTAB PO PRN (05:18)
[2024-10-30] MEDS: MAGNESIUM 2GM PREMIX 50ML 50 ML IV PRN (05:57)
--- NOTE | 2024-10-30 06:04 | CONS ---
INFECTIOUS DISEASE CONSULTATION DATE OF SERVICE: 10/28/2024 REQUESTING PHYSICIAN: Nazario Malin MD REASON FOR CONSULTATION: Pneumonia and antibiotic management. HISTORY OF PRESENT ILLNESS: This is a 53-year-old male with history of chronic tobacco use, obesity and diabetes mellitus who presented to the hospital with cough and shortness of breath. The patient also complained of pleuritic pain. Cough was productive of yellowish sputum. No sick contact or recent trouble. Imaging was done and it showed the patient to have pneumonia and pleural effusion. The patient underwent thoracentesis and had chest tube placement on the right side. The patient has been started on vancomycin and cefepime. PAST MEDICAL HISTORY: * Diabetes mellitus. * Hypertension. * Obesity. PAST SURGICAL HISTORY: Denied. ALLERGIES: No known drug allergies. CURRENT MEDICATIONS: Reviewed and include: * Vancomycin. * Cefepime. * Insulin. * Tylenol. SOCIAL HISTORY: The patient is a smoker and drinks. Denies illicit drug use. FAMILY HISTORY: Positive for diabetes mellitus. REVIEW OF SYSTEMS: Greater than 10 systems were reviewed, negative except as documented above. PHYSICAL EXAMINATION: GENERAL: Middle-aged male, awake. VITAL SIGNS: Temperature 97.5, pulse 82, respirations 25 and BP 108/69. EYES: No icterus. Pupils are equal and reactive. HENT: No oral thrush seen. Moist oral mucosa. NECK: Supple. No JVD or thyromegaly. LUNGS: Good air entry. No rales, no rhonchi. CARDIOVASCULAR: S1 and S2 regular. No murmur heard. CHEST: Chest tube on the right side. ABDOMEN: Full, soft, nontender. Obese. No organomegaly. CENTRAL NERVOUS SYSTEM: Awake, alert, oriented x 3. No focal deficits. SKIN: No rashes, no itchiness. LYMPHATIC: No peripheral lymphadenopathy. BACK: No deformity. No pressure ulcer. LABORATORY DATA: Sodium 131, potassium 4.0, BUN 18, creatinine 1.0. WBC 10.0, hemoglobin 14.9, platelets 175. HIV test negative. Influenza antigen negative. RADIOLOGY: CT Chest shows right hydropneumothorax, right lung infiltrates. ASSESSMENT: A 53-year-old male admitted with shortness of breath. CURRENT PROBLEMS: Include: * Community-acquired pneumonia. * Right hydropneumothorax, status post thoracotomy and chest tube placement. * Diabetes mellitus. * Chronic tobacco use. PLAN: * Continue cefepime. * Continue vancomycin. * Monitor chest tube output. * Continue antiemetic. * Continue antidiabetic. * Continue nutritional support. * Monitor electrolytes. * The patient will be followed up closely. Thank you for allowing me to participate in the care of this patient. TID: [id number] RECEIPT: [id number]
--- NOTE | 2024-10-30 08:28 | NUR ---
DCP: HOME Sw spoke to pt's Iris Sanchez [phone]. Prior to admission pt was working for [employer]. Per , pt was independent of all his ADLS, used no DME or in home care services. pt just got insurance on October and has no established self with a PCP. working on this. Pt uses [facility] for rx needs. DCP is home. Addendum: 10/30/24 at 0840 by JHONATHAN AYALA SS Amended: Links added.
--- NOTE | 2024-10-30 10:46 | PN ---
INFECTIOUS DISEASE PROGRESS NOTE Date of Service: Oct 29, 2024 SUBJECTIVE: This is a 53-year-old male patient who was seen and examined at bedside in room 220. Patient is awake and alert. Remains on respiratory distress and currently on oxygen support via non-rebreather mask. Pneumothorax has resolved and the chest tube has been removed. Patient remains afebrile, temperature is 97.7. Continues on vancomycin and cefepime and no reports of nausea or vomiting. PHYSICAL EXAM EYES: Anicteric. Pupils equal and reactive. HENT: No oral thrush seen, moist Oral mucosa NECK: Supple, no JVD or thyromegaly. LUNGS: No rales, no rhonchi. Diminished breath sounds. Currently on oxygen support via non-rebreather mask. CARDIOVASCULAR: S1, S2 regular. No murmur heard. ABDOMEN: Soft, non tender, bowel sounds present, no organomegaly CENTRAL NERVOUS SYSTEM: Awake, alert, oriented x 3. . SKIN: No rashes, no swelling. LYMPHATICS: No peripheral lymphadenopathy MUSCULOSKELETAL: No joint swelling, erythema or tenderness. EXTREMITIES: No cyanosis or clubbing. BACK: No deformity, no pressure ulcer. GENITOURINARY: No dysuria or hematuria. Vital Sign (Last 12 Hours) 10/30/24 10/30/24 10/30/24 10/30/24 00:00 04:00 07:03 07:04 Temp 98.4 98.2 Pulse 79 78 76 76 Resp 18 18 20 20 B/P (MAP) 108/65 112/67 Pulse Ox 98 100 O2 Delivery Nasal Cannula Nasal Cannula N/A Room Air O2 Flow Rate 4.0 4.0 FiO2 21 10/30/24 08:18 Temp 98.2 Pulse 74 Resp 20 B/P (MAP) 105/62 Pulse Ox 96 O2 Delivery Nasal Cannula O2 Flow Rate 4.0 Intake & Output (last 24hrs) 10/29/24 10/29/24 10/30/24 15:00 23:00 07:00 Intake Total 350.0 ml 250.0 ml 400.0 ml Output Total 350 ml 1850 ml Balance 0 ml -1600.0 ml 400.0 ml LABS: Laboratory: Test 10/30/24 05:55 10/30/24 03:22 10/29/24 11:00 10/29/24 04:59 Range/Units Whole Blood Glucose 168 H 70-110 MG/DL White Blood Count 7.6 4.8-10.8 K/uL Red Blood Count 3.77 L 4.50-6.20 MIL/uL Hemoglobin 11.7 L 14.0-18.0 g/dL Hematocrit 33.8 L 42-54 % Mean Corpuscular Volume 89.7 79-99 fL Mean Corpuscular Hemoglobin 31.0 27.0-33.0 pg Mean Corpuscular Hemoglobin Concent 34.6 32.0-36.0 g/dL Red Cell Distribution Width 12.0 11.0-15.5 % Platelet Count 154 130-400 K/uL Mean Platelet Volume 12.6 H 7.5-10.5 fL Immature Granulocyte % (Auto) 0.5 0-1 % Neutrophils (%) (Auto) 64.7 40.0-77.0 % Lymphocytes (%) (Auto) 20.9 L 21.0-51.0 % Monocytes (%) (Auto) 10.1 3.0-13.0 % Eosinophils (%) (Auto) 3.4 0.0-8.0 % Basophils (%) (Auto) 0.4 0.0-5.0 % Neutrophils # (Auto) 4.9 1.8-7.7 K/uL Lymphocytes # (Auto) 1.6 1.0-4.8 K/uL Monocytes # (Auto) 0.8 0.1-1.0 K/uL Eosinophils # (Auto) 0.26 0.00-0.70 K/uL Basophils # (Auto) 0.03 0.00-0.20 K/uL Absolute Immature Granulocyte (auto 0.04 0-1 K/uL Nucleated Red Blood Cells 0.0 0.0-0.19 % Sodium Level 134 L 136-145 mmol/L Potassium Level 2.8 *L 3.5-5.1 mmol/L Chloride Level 101 101-111 mmol/L Carbon Dioxide Level 26 21-32 mmol/L Blood Urea Nitrogen 9 7-18 mg/dL Creatinine 0.5 0.5-1.3 mg/dL Glomerular Filtration Rate Calc 122 >90 mL/min Random Glucose 147 H 70-105 mg/dL Total Calcium 7.5 L 8.5-10.1 mg/dL Magnesium Level 1.80 1.80-2.40 mg/dL Albumin 1.8 L 3.5-5.0 g/dL Procalcitonin 0.19 0.05-0.5 ng/mL Reticulocyte Count (auto) 1.63288 0.42-2.23 % Immature Reticulocyte Fraction 10.30 H 0.18-0.48 % Iron Level 29 L 65-175 mcg/dL Total Iron Binding Capacity 191 L 250-450 mcg/dL Percent Iron Saturation 15.1 L 30-44 % Ferritin 3282 H 30-400 ng/mL Vitamin B12 Level 454 193-986 pg/mL Bedside Glucose Comment Notified Nurse Test 10/29/24 03:15 10/28/24 16:30 Range/Units Total Bilirubin 0.3 # 0.2-1.0 mg/dL Aspartate Amino Transf (AST/SGOT) 64 H 10-37 U/L Alanine Aminotransferase (ALT/SGPT) 74 # 12-78 U/L Alkaline Phosphatase 93 50-136 U/L C-Reactive Protein, Quantitative 157.20 H 0.5-3.0 mg/L Total Protein 6.5 6.0-8.3 g/dL Body Fluid Source PLEURAL Body Fluid Volume 225 mL Body Fluid Color YELLOW LT YELLOW Body Fluid Supernatant Appearance SLIGHTLY CLOUDY CLEAR Body Fluid WBC 4094 /cu. mm. Body Fluid RBC 1868 /cu. mm. Body Fluid Neutrophils 60.0 % Body Fluid Lymphocytes 30 % Body Fluid Monocytes % 5 % Body Fluid Basophils % 1 % Body Fluid Macrophages (%) 2 Body Fluid Mesothelial Cells (%) 2 % Pleural Fluid pH 7.5 Pleural Fluid Total Protein 4.7 mg/dL Pleural Fluid LDH 1628 U/L Pleural Fluid Glucose 322 Urine Opiates Screen NEGATIVE NEGATIVE Urine Barbiturates Screen NEGATIVE NEGATIVE Urine Phencyclidine Screen NEGATIVE NEGATIVE Urine Amphetamines Screen NEGATIVE NEGATIVE Urine Benzodiazepines Screen NEGATIVE NEGATIVE Urine Cocaine Screen NEGATIVE NEGATIVE Urine Marijuana (THC) Screen NEGATIVE NEGATIVE ASSESSMENT: Community-acquired pneumonia. Right hydropneumothorax, status post thoracotomy and chest tube placement in ER, status post removal. Morbid obesity. Diabetes mellitus. Tobacco use. PLAN: Continue vancomycin per pharmacy protocol. Continue azithromycin IV. Continue cefepime. Continue oxygen support. Continue GI prophylaxis. This case was reviewed and discussed with my supervising physician and the above assessment and plan was formulated and agreed upon. ATTESTATION BY PHYSICIAN I have seen and examined the patient. I reviewed the documentation, medical decision making, and treatment plan as noted by the mid-level provider above. I agree with the findings and plan of care. TRISHA PARK MD, [facility] Oct 30, 2024 10:46
--- NOTE | 2024-10-30 14:09 | PN ---
[facility] PROGRESS NOTE Date of Service: Oct 30, 2024 Time of Service: 13:52 SUBJECTIVE: 53-year-old male with history of significant tobacco use disorder (40 pack year smoking history) presented to the ER with a chief complaint of shortness of breath and chest pain for 3 days which is progressive. Chest pain is worsened with deep inspiration and cough. He denied with a history of fever , cough with sputum production. He mentioned that he has been losing his weight for last1 year but his appetite is good. Reported the long history of smoking, I started at the age of 12-13 years of old but denied any alcohol use. He has not visited to any pizza chef before due to any respiratory issues. On presentation to the hospital, patient was noted to have T-max of 99.9 F, heart rate of 103, blood pressure of 143/80. Chest x-ray showed findings of [id number] right-sided pneumothorax. Twelve [place] pigtail catheter was placed in the ER relief of pneumothorax. CT chest without contrast was performed which showed findings of right-sided hydropneumothorax with right lower lobe consolidative pneumonia. He was admitted for further management. He is started on Zosyn, vancomycin and azithromycin. Pulmonology and Infectious Disease are consulted for further workup. 10/29/2024-the patient was evaluated this morning bedside. He did not complain of any acute event overnight. He feels his breathing is better now. He is hemodynamically stable and is on 2 L of oxygen. Pertinent labs for hemoglobin 11.4, ESR 122, random blood glucose 257, HbA1c 11.5. Calcium 8.5, CRP 157, albumin 2, LDH serum is 144. 225 ML of pleural fluid drained and lab result revealed LDH 1628, protein 4.7. According to light's criteria, pleural fluid seems to be exudative. MRSA screening for nasal swab was positive. On vancomycin Zosyn and azithromycin. Pulmonology at ID on the board. For newly diagnosed diabetes mellitus with HBA1c 11.5, endocrinology is consulted. Plan of management as discussed below. 10/30/2024-the patient was evaluated this morning bedside. He did not complain of any acute event overnight. He feels his breathing is better now. He is hemodynamically stable and is on 2 L of oxygen. Pertinent labs for hemoglobin 11.7, ESR 122, random blood glucose 168, HbA1c 11.5. Corrected Calcium 9.2, CRP 157, albumin 1.8 On vancomycin Zosyn and azithromycin. Repeat chest CT on October 29 showed large right pleural effusion which increased compared to prior CT chest. Pulmonology and ID on the board. Diabetes mellitus with HBA1c 11.5. Endocrinology started Lantus 15 units daily, regular insulin 5 units t.i.d. and medium dose sliding scale insulin. Further Plan of management as discussed below. REVIEW OF SYSTEMS CONSTITUTIONAL: malaise, fatigue NEUROLOGICAL: Denies headache, amaurosis fugax, motor weakness, sensory deficit ENT: No hearing loss, otalgia, rhinitis CARDIOVASCULAR: Denies any exertional angina, dyspnea on exertion PULMONARY: SOB, pleurisy SLEEP: Denies morning headaches, daytime somnolence or napping. Denies difficulty falling asleep, staying asleep, waking from sleep. Denies knowledge of snoring. GASTROINTESTINAL: Denies any type of dysphagia nausea, vomiting, abdominal pain, diarrhea, constipation GENITOURINARY: Denies frequency, urgency ENDOCRINOLOGIC: Denies polyuria, polydipsia, polyphagia HEMATOLOGIC: Denies thrombophilia/previous clots, or coagulopathy/bleeding disorders. ONCOLOGIC: Denies personal history of malignancy. DERMATOLOGIC: Denies rashes or pruritus. PSYCHIATRIC: Denies any suicidal or homicidal ideation. PHYSICAL EXAM GENERAL APPEARANCE: The patient is awake, alert, and oriented, in no acute cardiopulmonary distress. NEUROLOGICAL: Cranial nerves II-XII grossly intact. Motor is 5/5 in bilateral upper and lower extremities proximal to distal. No sensory deficits. HEENT: Face is symmetric. Pupils are equal and reactive. Extraocular movements are intact. NECK: Supple. No JVD. No thyromegaly. No submental, submandibular, pre- /postauricular, occipital or supraclavicular lymphadenopathy. CHEST: Normal chest expansion. No Telemetry. LUNGS: Decreased breath sound of the right lung base with crackles noted CARDIOVASCULAR: Regular. S1 and S2 normal. No appreciable rubs, murmurs or gallops. ABDOMEN: Soft, nontender, and nondistended. There is no rebound, voluntary guarding, or rigidity. : Deferred. No [place]. EXTREMITIES: Non-edematous and not cyanotic. No clubbing. Good capillary refill. SKIN: No skin breakdown. Vital Signs (last 8hr) Date Time Temp Pulse Resp B/P (MAP) Pulse Ox O2 Delivery O2 Flow Rate FiO2 10/30/24 12:00 98.8 90 18 121/50 99 Nasal Cannula 3.0 10/30/24 08:18 98.2 74 20 105/62 96 Nasal Cannula 4.0 10/30/24 08:10 96 Nasal Cannula* 4 36 10/30/24 07:04 76 20 N/A Room Air 21 10/30/24 07:03 76 20 LABS: Laboratory: Test 10/30/24 12:00 10/30/24 11:11 10/30/24 03:22 10/29/24 11:00 Range/Units Vancomycin Level Trough 3.2 L 10.0-20.0 UG/ML Whole Blood Glucose 224 H 70-110 MG/DL White Blood Count 7.6 4.8-10.8 K/uL Red Blood Count 3.77 L 4.50-6.20 MIL/uL Hemoglobin 11.7 L 14.0-18.0 g/dL Hematocrit 33.8 L 42-54 % Mean Corpuscular Volume 89.7 79-99 fL Mean Corpuscular Hemoglobin 31.0 27.0-33.0 pg Mean Corpuscular Hemoglobin Concent 34.6 32.0-36.0 g/dL Red Cell Distribution Width 12.0 11.0-15.5 % Platelet Count 154 130-400 K/uL Mean Platelet Volume 12.6 H 7.5-10.5 fL Immature Granulocyte % (Auto) 0.5 0-1 % Neutrophils (%) (Auto) 64.7 40.0-77.0 % Lymphocytes (%) (Auto) 20.9 L 21.0-51.0 % Monocytes (%) (Auto) 10.1 3.0-13.0 % Eosinophils (%) (Auto) 3.4 0.0-8.0 % Basophils (%) (Auto) 0.4 0.0-5.0 % Neutrophils # (Auto) 4.9 1.8-7.7 K/uL Lymphocytes # (Auto) 1.6 1.0-4.8 K/uL Monocytes # (Auto) 0.8 0.1-1.0 K/uL Eosinophils # (Auto) 0.26 0.00-0.70 K/uL Basophils # (Auto) 0.03 0.00-0.20 K/uL Absolute Immature Granulocyte (auto 0.04 0-1 K/uL Nucleated Red Blood Cells 0.0 0.0-0.19 % Sodium Level 134 L 136-145 mmol/L Potassium Level 2.8 *L 3.5-5.1 mmol/L Chloride Level 101 101-111 mmol/L Carbon Dioxide Level 26 21-32 mmol/L Blood Urea Nitrogen 9 7-18 mg/dL Creatinine 0.5 0.5-1.3 mg/dL Glomerular Filtration Rate Calc 122 >90 mL/min Random Glucose 147 H 70-105 mg/dL Total Calcium 7.5 L 8.5-10.1 mg/dL Magnesium Level 1.80 1.80-2.40 mg/dL Albumin 1.8 L 3.5-5.0 g/dL Procalcitonin 0.19 0.05-0.5 ng/mL Reticulocyte Count (auto) 1.18260 0.42-2.23 % Immature Reticulocyte Fraction 10.30 H 0.18-0.48 % Iron Level 29 L 65-175 mcg/dL Total Iron Binding Capacity 191 L 250-450 mcg/dL Percent Iron Saturation 15.1 L 30-44 % Ferritin 3282 H 30-400 ng/mL Vitamin B12 Level 454 193-986 pg/mL Test 10/29/24 04:59 10/29/24 03:15 10/28/24 16:30 Range/Units Bedside Glucose Comment Notified Nurse Total Bilirubin 0.3 # 0.2-1.0 mg/dL Aspartate Amino Transf (AST/SGOT) 64 H 10-37 U/L Alanine Aminotransferase (ALT/SGPT) 74 # 12-78 U/L Alkaline Phosphatase 93 50-136 U/L C-Reactive Protein, Quantitative 157.20 H 0.5-3.0 mg/L Total Protein 6.5 6.0-8.3 g/dL Body Fluid Source PLEURAL Body Fluid Volume 225 mL Body Fluid Color YELLOW LT YELLOW Body Fluid Supernatant Appearance SLIGHTLY CLOUDY CLEAR Body Fluid WBC 4094 /cu. mm. Body Fluid RBC 1868 /cu. mm. Body Fluid Neutrophils 60.0 % Body Fluid Lymphocytes 30 % Body Fluid Monocytes % 5 % Body Fluid Basophils % 1 % Body Fluid Macrophages (%) 2 Body Fluid Mesothelial Cells (%) 2 % Pleural Fluid pH 7.5 Pleural Fluid Total Protein 4.7 mg/dL Pleural Fluid LDH 1628 U/L Pleural Fluid Glucose 322 Urine Opiates Screen NEGATIVE NEGATIVE Urine Barbiturates Screen NEGATIVE NEGATIVE Urine Phencyclidine Screen NEGATIVE NEGATIVE Urine Amphetamines Screen NEGATIVE NEGATIVE Urine Benzodiazepines Screen NEGATIVE NEGATIVE Urine Cocaine Screen NEGATIVE NEGATIVE Urine Marijuana (THC) Screen NEGATIVE NEGATIVE Current Medications Medications (Trade) Dose Ordered Sig/Estela Route PRN Reason Start Time Stop Time Status Last Admin Dose Admin Acetaminophen (TYLenol 325MG TAB) 650 mg Q6H PRN PO MILD PAIN (1-3) 10/28/24 09:00 11/27/24 08:59 10/28/24 23:18 650 MG Albuterol (DUOneb) 1 udvial Q6H PRN IH SHORTNESS OF BREATH 10/28/24 09:00 11/27/24 08:59 Azithromycin 250 ml @ 250 mls/hr Q24H IVPB 10/28/24 09:00 11/07/24 08:59 10/30/24 08:52 250 MLS/HR Budesonide (Pulmicort 0.5 Mg/2ml) 0.5 mg BIDRESP IH 10/28/24 18:00 11/27/24 17:59 10/30/24 07:00 0.5 MG Cefepime HCl (MAXipime 2 gm vial) 2 gm Q12H IVPB 10/28/24 18:00 11/07/24 17:59 10/30/24 05:18 2 GM Famotidine (Pepcid 20mg Vial) 20 mg BID IV 10/28/24 09:00 11/27/24 08:59 10/30/24 08:53 20 MG Guaifenesin/ Dextromethorphan (RobiTUSSin DM 200/20MG 10ML) 10 ml Q6H PRN PO COUGH 10/28/24 09:00 11/27/24 08:59 Hydromorphone HCl (DiLAUDid 0.5MG INJ) 0.5 mg Q4H PRN IVP SEVERE PAIN (7-10) 10/28/24 09:00 11/02/24 08:59 10/29/24 14:14 0.5 MG Insulin Glargine (LANtus 100 UNITS/ML 10 ML VIAL) 12 units HS SQ 10/28/24 21:00 10/28/24 17:00 DC Insulin Glargine (LANtus 100 UNITS/ML 10 ML VIAL) 15 units HS SQ 10/28/24 21:00 11/27/24 20:59 10/29/24 20:51 15 UNITS Insulin Human Regular (humuLIN R 100 UNIT/ML 3ML) 5 unit TIDAC SQ 10/30/24 07:30 11/29/24 07:29 10/30/24 11:45 5 UNIT Insulin Human Regular (humuLIN R 100 UNIT/ML 3ML) INSULIN SLIDING SCAL... ACHS SQ 10/28/24 11:30 10/29/24 07:42 DC 10/29/24 06:27 4 UNIT Insulin Human Regular (humuLIN R 100 UNIT/ML 3ML) INSULIN SLIDING SCAL... ACHS SQ 10/29/24 11:30 10/29/24 22:09 DC 10/29/24 20:52 4 UNIT Insulin Human Regular (humuLIN R 100 UNIT/ML 3ML) INSULIN SLIDING SCAL... ACHS SQ 10/30/24 07:30 11/29/24 07:29 10/30/24 11:51 4 UNIT Ketorolac Tromethamine (toRADol) 15 mg Q12H PRN IV MODERATE PAIN (4-6) 10/28/24 09:00 10/30/24 09:00 DC 10/29/24 18:28 15 MG Magnesium Sulfate 50 ml @ 0 mls/hr PROTOCOL PRN IV low magnesium 10/30/24 05:30 11/29/24 05:29 10/30/24 05:57 25 MLS/HR Nicotine (Nicoderm) 14 mg DAILY TD 10/29/24 09:00 11/28/24 08:59 10/30/24 08:52 14 MG Ondansetron HCl (zoFRAN 4MG INJ) 4 mg Q6H PRN IVP NAUSEA/VOMITING 10/28/24 09:00 11/27/24 08:59 Potassium Chloride 100 ml @ 100 mls/hr AD PRN IV POTASSIUM PROTOCOL 10/30/24 05:30 11/29/24 05:29 Potassium Chloride (K-Dur/Klor-Con 20meq) 20 meq AD PRN PO POTASSIUM PROTOCOL 10/30/24 05:30 11/29/24 05:29 10/30/24 08:54 20 MEQ Potassium Chloride (KCl 10% Elixir 20meq/15ml) 20 meq AD PRN PO POTASSIUM PROTOCOL 10/30/24 05:30 11/29/24 05:29 Sodium Chloride 1,000 ml @ 100 mls/hr Q10H IV 10/28/24 09:00 10/29/24 10:34 DC 10/29/24 00:45 100 MLS/HR Thiamine HCl (Vitamin B-1) 100 mg Q24H IVP 10/28/24 09:00 11/27/24 08:59 10/30/24 08:53 100 MG Vancomycin HCl 250 ml @ 125 mls/hr Q12H IV 10/29/24 01:00 10/30/24 12:56 DC 10/30/24 00:44 125 MLS/HR Vancomycin HCl 250 ml @ 125 mls/hr Q8H IV 10/30/24 22:00 11/09/24 21:59 Vancomycin HCl (Vancomycin Protocol) 1 each AD IV 10/28/24 11:00 11/11/24 10:59 DIAGNOSTICS / RADIOLOGY: PATIENT: CLAUDIA TELLO MR#: [id number] : 1970 SEX: M AGE: 53 LOCATION: 2DH ORDER 24 STATUS: ADM IN REPORT#: [id number] SERVICE 23 REASON: rule out pneumo ORDERING PHYSICIAN: JOSH GALVAN PROCEDURE: CHEST WO - CT CHEST W/O CONTRAST EXAM: CT Chest With Intravenous Contrast. CLINICAL HISTORY: 53-year-old male, rule out pneumonia TECHNIQUE: Axial computed tomography images of the chest with intravenous contrast. Dose reduction technique was used including one or more of the following: automated exposure control, adjustment of mA and kV according to patient size, and/or iterative reconstruction. COMPARISON: CT Chest 10/28/2024 FINDINGS: LUNGS: Large consolidations in the right middle lobe and right lower lobe are seen consistent with pneumonia. PLEURAL SPACES: Moderate right pleural effusion which is increased compared to the prior CT Chest 10/28/2024. Consider thoracentesis. No CT evidence for pneumothorax. HEART AND MEDIASTINUM: No cardiomegaly. No significant pericardial effusion. Mediastinal and hilar lymphadenopathy is present. LYMPH NODES: Mediastinal and hilar lymphadenopathy is present. CHEST WALL AND UPPER ABDOMEN: The upper abdominal solid organs are unremarkable. The chest wall is unremarkable. BONES: No acute osseous abnormality. IMPRESSION: 1. Large consolidations in the right middle lobe and right lower lobe, consistent with pneumonia, stable compared to prior CT Chest 10/28/2024. 2. Large right pleural effusion, increased compared to prior CT Chest 10/28/2024. Consider thoracentesis. /[place] DICTATED BY: KLARISSA HDZ MD DATE: 10/29/241735 ELECTRONICALLY SIGNED BY: KLARISSA HDZ MD DATE: 10/29/241735 ASSESSMENT: Right lower lobe consolidative pneumonia, POA Moderate to large right-sided pneumothorax status post chest tube placement POA Right-sided hydropneumothorax, POA Newly diagnosed diabetes mellitus, POA Rule out chronic COPD of the lungs, POA Anemia POA Tobacco use disorder long-term smoking history, POA PLAN: Right lower lobe consolidative pneumonia, POA Moderate to large right-sided pneumothorax status post chest tube placement POA Right-sided hydropneumothorax, POA -on admission chest x-ray revealed [id number] right-sided pneumothorax, 2 [place] pigtail was placed. Post tube placement, CT chest revealed right-sided hydropneumothorax with collapse consolidation. The hydropneumothorax may be secondary to pneumonia. CRP 157, procalcitonin 0.39, ESR 122, pleural fluid LDL is 1628 pleural fluid protein 4.7. Pleural effusion seems to be exudative of was in nature as per light's criteria. Repeat chest CT on 0 10/29/24 revealed large right-sided pleural effusion. -empirically started on cefepime, vancomycin and azithromycin. -oxygen supplementation for O2 saturation above 92 per -continue on chest tube management -pleural fluid drained was sent for the labs including culture and Gram staining. -started on Pulmicort q.12 hours and duo nebs q.6 hours PRN. Toradol for pain PRN -ordered sniff test for the concern of right diaphragm paralysis which will be followed by possible bronchoscopy as per pulmonology -We will get echo , QuantiFERON test, urinalysis, urine protein creatinine ratio -we will get CT abdomen pelvis with contrast. -pulmonology and Infectious Disease consulted. We will follow the recommendations. -we will monitor clinical improvement along with interval chest x-ray and repeat labs. Newly diagnosed diabetes mellitus, POA -elevated blood glucose, recorded highest at 389, HGB A1c 11.5 -as per Endocrinology started on [id number] units, regular insulin5 units t.i.d. and medium dose SSI -we will monitor blood glucose closely. Tobacco use disorder long-term smoking history, POA -long history of extensive smoking, pack year 40 -placed on nicotine patch -we will encourage patient for smoking cessation -we will monitor signs of withdrawal. Anemia -hemoglobin this morning 11.4, iron 29, TIBC 191, saturation 15.1, ferritin 3282 -we will get stool FOBT -we will monitor hemoglobin. Rule out chronic COPD of the lungs, POA -long history of extensive smoking with pack year 40, patient may have COPD with some degree of shortness of breath at baseline -started on Pulmicort q.12 hours and duo nebs q.6 hours PRN we will for SOB as well -need to get pulmonology function test at some point of time to rule out COPD. Tobacco use disorder long-term smoking history, POA -long history of extensive smoking, pack year 40 -we will encourage patient for smoking cessation -on nicotine patch -we will monitor signs of withdrawal. GI prophylaxis: Famotidine DVT prophylaxis: SCD Status: Full code ATTESTATION BY PHYSICIAN I have seen and examined the patient. I reviewed the documentation, medical d ecision making, and treatment plan as noted by the resident provider above. I agree with the findings and plan of care. Arnaldo Deras MD, SUNIL MD Oct 30, 2024 14:09
--- NOTE | 2024-10-30 14:28 | PN ---
[facility] PROGRESS NOTE Date Patient Seen: Oct 30, 2024 Time of Visit: 14:20 Supervising Physician: VINICIUS BRITO MD Primary Care Physician: Self Referral Outpatient Specialists: None Inpatient Consults: Dr Preston CLARK MD Attending Physician: Dr. Finesse KENT PROBLEM LIST: Acute hypoxemic respiratory failure on admission Large hydro pneumothorax of the right lung Status post chest tube, now removed Large effusion to the right lung, not present on admission Suspected complicated parapneumonic effusion/empyema to the right lung Type 2 diabetes mellitus with hyperglycemia Tobacco use disorder Right lower lobe pneumonia Hypertension Morbid obesity, BMI 34 INTERVAL HISTORY: patient is seen at bedside the patient is on 2 liters O2 denies dyspnea at rest denies orthopnea complains of fatigue and dyspnea with exertion chest x-ray reviewed: large effusion to the right lung no fevers, no chills, no nausea or vomiting good appetite no constipation REVIEW OF SYSTEMS: Const: no fever, fatigue, + weight loss+ chills Eyes: no recent vision problems ENT: No congestion, ear pain, or sore throat C/V: no chest pain, palpitations or edema Resp: +No cough, congestion, wheezing , + Shortness of breath GI: No abdominal pain, nausea, vomiting, constipation, or diarrhea : No incontinence of or dyuria M/S: No joint or pain swelling Skin: No rash Neuro: no headache, focal numbness, or weakness, dizziness or seizures Psych: no depression or anxiety Heme: no abnormal bruising or bleeding Lymph: no swollen glands PHYSICAL EXAM: GENERAL: alert, weak, awake oriented x 3 HEENT: EOMI, Sclera non icteric, moist mucosa NECK: Supple, no JVD, trachea midline LUNGS: Diminished to right lower lobes clear lung sounds to the left. No wheezes, right chest tube in place HEART: Regular rate and rhythm. Normal S1 and S2, without murmurs ABD: Abdomen soft, nontender. Bowel sounds present EXT: No clubbing cyanosis or edema NEURO: Alert and oriented to person, follows commands Vital Signs (last 8hr) Date Time Temp Pulse Resp B/P (MAP) Pulse Ox O2 Delivery O2 Flow Rate FiO2 10/30/24 12:00 98.8 90 18 121/50 99 Nasal Cannula 3.0 10/30/24 08:18 98.2 74 20 105/62 96 Nasal Cannula 4.0 10/30/24 08:10 96 Nasal Cannula* 4 36 10/30/24 07:04 76 20 N/A Room Air 21 10/30/24 07:03 76 20 LABS: Hematology Labs: Test 10/30/24 03:22 10/29/24 11:00 Range/Units White Blood Count 7.6 4.8-10.8 K/uL Red Blood Count 3.77 L 4.50-6.20 MIL/uL Hemoglobin 11.7 L 14.0-18.0 g/dL Hematocrit 33.8 L 42-54 % Mean Corpuscular Volume 89.7 79-99 fL Mean Corpuscular Hemoglobin 31.0 27.0-33.0 pg Mean Corpuscular Hemoglobin Concent 34.6 32.0-36.0 g/dL Red Cell Distribution Width 12.0 11.0-15.5 % Platelet Count 154 130-400 K/uL Mean Platelet Volume 12.6 H 7.5-10.5 fL Immature Granulocyte % (Auto) 0.5 0-1 % Neutrophils (%) (Auto) 64.7 40.0-77.0 % Lymphocytes (%) (Auto) 20.9 L 21.0-51.0 % Monocytes (%) (Auto) 10.1 3.0-13.0 % Eosinophils (%) (Auto) 3.4 0.0-8.0 % Basophils (%) (Auto) 0.4 0.0-5.0 % Neutrophils # (Auto) 4.9 1.8-7.7 K/uL Lymphocytes # (Auto) 1.6 1.0-4.8 K/uL Monocytes # (Auto) 0.8 0.1-1.0 K/uL Eosinophils # (Auto) 0.26 0.00-0.70 K/uL Basophils # (Auto) 0.03 0.00-0.20 K/uL Absolute Immature Granulocyte (auto 0.04 0-1 K/uL Nucleated Red Blood Cells 0.0 0.0-0.19 % Reticulocyte Count (auto) 1.08032 0.42-2.23 % Immature Reticulocyte Fraction 10.30 H 0.18-0.48 % Chemistry Labs: Test 10/30/24 11:11 10/30/24 03:22 10/29/24 11:00 10/29/24 04:59 Range/Units Whole Blood Glucose 224 H 70-110 MG/DL Sodium Level 134 L 136-145 mmol/L Potassium Level 2.8 *L 3.5-5.1 mmol/L Chloride Level 101 101-111 mmol/L Carbon Dioxide Level 26 21-32 mmol/L Blood Urea Nitrogen 9 7-18 mg/dL Creatinine 0.5 0.5-1.3 mg/dL Glomerular Filtration Rate Calc 122 >90 mL/min Random Glucose 147 H 70-105 mg/dL Total Calcium 7.5 L 8.5-10.1 mg/dL Magnesium Level 1.80 1.80-2.40 mg/dL Albumin 1.8 L 3.5-5.0 g/dL Procalcitonin 0.19 0.05-0.5 ng/mL Iron Level 29 L 65-175 mcg/dL Total Iron Binding Capacity 191 L 250-450 mcg/dL Percent Iron Saturation 15.1 L 30-44 % Ferritin 3282 H 30-400 ng/mL Vitamin B12 Level 454 193-986 pg/mL Bedside Glucose Comment Notified Nurse Test 10/29/24 03:15 Range/Units Total Bilirubin 0.3 # 0.2-1.0 mg/dL Aspartate Amino Transf (AST/SGOT) 64 H 10-37 U/L Alanine Aminotransferase (ALT/SGPT) 74 # 12-78 U/L Alkaline Phosphatase 93 50-136 U/L C-Reactive Protein, Quantitative 157.20 H 0.5-3.0 mg/L Total Protein 6.5 6.0-8.3 g/dL DIAGNOSTICS / RADIOLOGY RESULTS: Chest x-ray: right lung pneumothorax resolved now with large effusion to the right lung PLAN - Will proceed with chest tube placement to the right lung - Risks and benefits addressed - Risk of bleeding, lung puncture or recurrent thoracentesis - Patient is hypoxic on O2 and effusion is large; benefits outweigh the risks ORTHO/REHAB: Continue PT/OT Prophylaxis: Continue GI and DVT prophylaxis Code Status: Full Resuscitation Disposition: Per PCP I personally scribed for VINICIUS BRITO MD ([email or web address]) on 10/30/24 at 14:28. Electronically submitted by Farhat Fletcher ([email or web address]). VINICIUS BRITO MD Oct 30, 2024 14:28
--- NOTE | 2024-10-30 14:29 | HMCIMG ---
Exam: Fluoroscopic sniff test Indication: Evaluation for right hemidiaphragm. Technique: Real-time fluoroscopy was performed as the patient breathed to evaluate the movement of the diaphragm. Comparison: No previous fluoroscopic sniff test is available for comparison at this institution. Findings: Initial fluoroscopic image redemonstrated elevation of the right hemidiaphragm with large right-sided pleural effusion.. Left diaphragm fluoroscopy demonstrates normal motion in inspiration and expiration and forced expiration, excluding diaphragmatic paralysis. IMPRESSION: The right hemidiaphragm cannot be properly evaluated due to large right-sided pleural effusion. I would recommend thoracentesis and then performed a selective chest afterward. The left hemidiaphragm normal motion inspiration and expiration.
[2024-10-30] MEDS ORDERED: IOHEXOL 350 MG/ML 100ML INFUS..BTL IV ONE (15:04)
[2024-10-30] MEDS: LIDOCAINE HCL MPF 1% 5ML VIAL ONE (15:43)
--- NOTE | 2024-10-30 16:34 | HMCIMG ---
EXAM: CT Abdomen and Pelvis with IV contrast CLINICAL HISTORY: CONCERN FOR MALIGNANCY TECHNIQUE: Axial computed tomography images of the abdomen and pelvis with intravenous contrast. CONTRAST: with intravenous contrast. COMPARISON: None provided. FINDINGS: LUNG BASES: T right pleural effusion, right basilar consolidation. Correlation with chest CT suggested LIVER: Unremarkable. GALLBLADDER AND BILE DUCTS: The gallbladder appears within normal limits. No radioopaque gallstones are seen. No biliary ductal dilatation is evident. PANCREAS: Unremarkable. SPLEEN: Unremarkable. ADRENAL GLANDS: Unremarkable. KIDNEYS, URETERS, AND BLADDER: The kidneys appear within normal limits. There is no hydronephrosis or hydroureter. No urinary calculi are seen. STOMACH AND BOWEL: Unremarkable appearance of the stomach and bowel. No evidence of bowel obstruction. No evidence suggesting enteritis or colitis. APPENDIX: No evidence of acute appendicitis on CT examination. PERITONEUM: No free fluid. No free air. LYMPH NODES: No lymphadenopathy is evident. REPRODUCTIVE: Unremarkable as visualized. VASCULATURE: No evidence of abdominal aortic aneurysm. BONES: No aggressive appearing osseous lesion. No acute osseous pathology evident. IMPRESSION: Please see chest CT No acute intra-abdominal or pelvic abnormality. /[place]
--- NOTE | 2024-10-30 17:01 | PN ---
INFECTIOUS DISEASE PROGRESS NOTE Date of Service: Oct 30, 2024 SUBJECTIVE: This is a 53-year-old male patient who was seen and examined at bedside in room 220. Patient is awake and alert. Patient is afebrile this morning, temperature is 98.2. Patient is on oxygen via nasal cannula at 3 L/min. Patient underwent an sniff test earlier today and still showing large right-sided pleural effusion. No growth reported on the pleural fluid culture. Continues on vancomycin and cefepime. Patient reported feeling a lot better and no reports of nausea or vomiting. We will continue to follow patient's care. PHYSICAL EXAM EYES: Anicteric. Pupils equal and reactive. HENT: No oral thrush seen, moist Oral mucosa NECK: Supple, no JVD or thyromegaly. LUNGS: No rales, no rhonchi. Diminished breath sounds. Currently on oxygen support via non-rebreather mask. CARDIOVASCULAR: S1, S2 regular. No murmur heard. ABDOMEN: Soft, non tender, bowel sounds present, no organomegaly CENTRAL NERVOUS SYSTEM: Awake, alert, oriented x 3. . SKIN: No rashes, no swelling. LYMPHATICS: No peripheral lymphadenopathy MUSCULOSKELETAL: No joint swelling, erythema or tenderness. EXTREMITIES: No cyanosis or clubbing. BACK: No deformity, no pressure ulcer. GENITOURINARY: No dysuria or hematuria. Vital Sign (Last 12 Hours) 10/30/24 10/30/24 10/30/24 10/30/24 07:03 07:04 08:10 08:18 Temp 98.2 Pulse 76 76 74 Resp 20 20 20 B/P (MAP) 105/62 Pulse Ox 96 96 O2 Delivery N/A Room Air Nasal Cannula* Nasal Cannula O2 Flow Rate 4 4.0 FiO2 21 36 10/30/24 12:00 Temp 98.8 Pulse 90 Resp 18 B/P (MAP) 121/50 Pulse Ox 99 O2 Delivery Nasal Cannula O2 Flow Rate 3.0 Intake & Output (last 24hrs) 10/29/24 10/29/24 10/30/24 14:59 22:59 06:59 Intake Total 450.0 ml 250.0 ml 400.0 ml Output Total 350 ml 1850 ml Balance 100.0 ml -1600.0 ml 400.0 ml LABS: Laboratory: Test 10/30/24 15:51 10/30/24 12:00 10/30/24 03:22 10/29/24 11:00 Range/Units Whole Blood Glucose 154 H 70-110 MG/DL Vancomycin Level Trough 3.2 L 10.0-20.0 UG/ML White Blood Count 7.6 4.8-10.8 K/uL Red Blood Count 3.77 L 4.50-6.20 MIL/uL Hemoglobin 11.7 L 14.0-18.0 g/dL Hematocrit 33.8 L 42-54 % Mean Corpuscular Volume 89.7 79-99 fL Mean Corpuscular Hemoglobin 31.0 27.0-33.0 pg Mean Corpuscular Hemoglobin Concent 34.6 32.0-36.0 g/dL Red Cell Distribution Width 12.0 11.0-15.5 % Platelet Count 154 130-400 K/uL Mean Platelet Volume 12.6 H 7.5-10.5 fL Immature Granulocyte % (Auto) 0.5 0-1 % Neutrophils (%) (Auto) 64.7 40.0-77.0 % Lymphocytes (%) (Auto) 20.9 L 21.0-51.0 % Monocytes (%) (Auto) 10.1 3.0-13.0 % Eosinophils (%) (Auto) 3.4 0.0-8.0 % Basophils (%) (Auto) 0.4 0.0-5.0 % Neutrophils # (Auto) 4.9 1.8-7.7 K/uL Lymphocytes # (Auto) 1.6 1.0-4.8 K/uL Monocytes # (Auto) 0.8 0.1-1.0 K/uL Eosinophils # (Auto) 0.26 0.00-0.70 K/uL Basophils # (Auto) 0.03 0.00-0.20 K/uL Absolute Immature Granulocyte (auto 0.04 0-1 K/uL Nucleated Red Blood Cells 0.0 0.0-0.19 % Sodium Level 134 L 136-145 mmol/L Potassium Level 2.8 *L 3.5-5.1 mmol/L Chloride Level 101 101-111 mmol/L Carbon Dioxide Level 26 21-32 mmol/L Blood Urea Nitrogen 9 7-18 mg/dL Creatinine 0.5 0.5-1.3 mg/dL Glomerular Filtration Rate Calc 122 >90 mL/min Random Glucose 147 H 70-105 mg/dL Total Calcium 7.5 L 8.5-10.1 mg/dL Magnesium Level 1.80 1.80-2.40 mg/dL Albumin 1.8 L 3.5-5.0 g/dL Procalcitonin 0.19 0.05-0.5 ng/mL Reticulocyte Count (auto) 1.99887 0.42-2.23 % Immature Reticulocyte Fraction 10.30 H 0.18-0.48 % Iron Level 29 L 65-175 mcg/dL Total Iron Binding Capacity 191 L 250-450 mcg/dL Percent Iron Saturation 15.1 L 30-44 % Ferritin 3282 H 30-400 ng/mL Vitamin B12 Level 454 193-986 pg/mL Test 10/29/24 04:59 10/29/24 03:15 Range/Units Bedside Glucose Comment Notified Nurse Total Bilirubin 0.3 # 0.2-1.0 mg/dL Aspartate Amino Transf (AST/SGOT) 64 H 10-37 U/L Alanine Aminotransferase (ALT/SGPT) 74 # 12-78 U/L Alkaline Phosphatase 93 50-136 U/L C-Reactive Protein, Quantitative 157.20 H 0.5-3.0 mg/L Total Protein 6.5 6.0-8.3 g/dL ASSESSMENT: Community-acquired pneumonia. Right hydropneumothorax, status post thoracotomy and chest tube placement in ER, status post removal on 10/29/2024. Morbid obesity. Diabetes mellitus. Tobacco use. PLAN: Continue vancomycin per pharmacy protocol. Continue azithromycin IV. Continue cefepime. Continue oxygen support. Continue GI prophylaxis. This case was reviewed and discussed with my supervising physician and the above assessment and plan was formulated and agreed upon. ATTESTATION BY PHYSICIAN I have seen and examined the patient. I reviewed the documentation, medical decision making, and treatment plan as noted by the mid-level provider above. I agree with the findings and plan of care. TRISHA PARK MD, [facility] Oct 30, 2024 17:01
--- NOTE | 2024-10-30 17:11 | HMCIMG ---
EXAM: CT Chest Without IV contrast. CLINICAL HISTORY: right pneumothrax TECHNIQUE: Axial computed tomography images of the chest without intravenous contrast. COMPARISON: None provided. FINDINGS: LUNGS: Right basilar lung consolidation. Focal somewhat irregular collection of air which appears in the collapsed right lower lobe lung parenchyma. Minimizing the abscess/lung cavity. PLEURAL SPACES: Moderate right pleural effusion No definitive area in the pleura. . HEART: No cardiomegaly. No significant pericardial effusion. LYMPH NODES: No lymphadenopathy is evident. UPPER ABDOMEN: The upper abdominal solid organs are unremarkable. BONES: No acute osseous abnormality. IMPRESSION: 1. Moderate right pleural effusion 2. Right basilar lung consolidation. 3. Focal somewhat irregular collection of air which appears in the collapsed right lower lobe lung parenchyma. Minimizing the abscess/lung cavity. 4. No definitive area in the pleura. . /[place]
[2024-10-30] MEDS: VANCOMYCIN 1.5 GM/250 ML BAG 250 ML IV ONE (17:15)
[2024-10-30 18:32] LABS: ADD UA MICROSCOPIC YES; APPEARANCE,URINE CLEAR (CLEAR); GLUCOSE, URINE (UA) 30 mg/dL (NEGATIVE); LEUKOCYTE ESTERASE ,URINE NEGATIVE Leu/uL (NEGATIVE); NITRATE,URINE NEGATIVE (NEGATIVE); OCCULT BLOOD,URINE NEGATIVE (NEGATIVE)
--- NOTE | 2024-10-30 20:15 | HMCIMG ---
EXAM: CR Chest, 1 View. CLINICAL HISTORY: chest tube COMPARISON: Radiograph dated October 29 2024 Findings: AP view of the chest is submitted. Interval increased large right pleural effusion with underlying airspace disease that may reflect compressive atelectasis. Relatively unchanged left perihilar and left basilar airspace disease that may reflect an infectious and/or inflammatory process. Heart size is not adequately assessed on this examination. Pulmonary vascular congestion. IMPRESSION: 1. Large right pleural effusion, increased from prior 2. Left perihilar and basilar airspace disease, unchanged, possibly infectious/inflammatory 3. Pulmonary vascular congestion /[place]
--- NOTE | 2024-10-30 20:25 | PN ---
Endocrinology consult DOS: 10/30/24 subjective: glucose are improving Home diabetic regimen: newly diagnosed diabetes Hba1c 11.6% REVIEW OF SYSTEMS CONSTITUTIONAL: malaise, fatigue NEUROLOGICAL: Denies headache, amaurosis fugax, motor weakness, sensory deficit, vertigo/spinning sensation, gait abnormalities, or tremors. ENT: No hearing loss, otalgia, otorrhea, rhinitis, rhinorrhea, hoarseness, or sore throat. CARDIOVASCULAR: Denies any exertional angina, dyspnea on exertion, orthopnea, paroxysmal nocturnal dyspnea, palpitations, life-threatening arrhythmias, claudication. PULMONARY: SOB, pleurisy SLEEP: Denies morning headaches, daytime somnolence or napping. Denies difficulty falling asleep, staying asleep, waking from sleep. Denies knowledge of snoring. GASTROINTESTINAL: Denies any type of dysphagia to either liquids or solids. Denies nausea, vomiting, pyrosis, early satiety, abdominal pain, diarrhea, constipation, or changes in stool consistency or caliber. Denies coffee-ground emesis, hematemesis, hematochezia, or melanotic stools. GENITOURINARY: Denies frequency, urgency, nocturia, hematuria or incontinence (Storage/Irritative symptoms.) Low urinary stream, straining to void, urinary intermittency or hesitancy, splitting of the voiding stream, terminal dribbling. ENDOCRINOLOGIC: Denies polyuria, polydipsia, polyphagia or heat/cold intolerances. HEMATOLOGIC: Denies thrombophilia/previous clots, or coagulopathy/bleeding disorders. ONCOLOGIC: Denies personal history of malignancy. DERMATOLOGIC: Denies rashes or pruritus. PSYCHIATRIC: Denies any suicidal or homicidal ideation. Denies hallucinations. PAST MEDICAL HISTORY: Tobacco use disorder PAST SURGICAL HISTORY: Denies history of major surgeries previously PAST SOCIAL HISTORY: Patient smokes about a pack a day for 40 years, drinks socially, denies any other illicit drug use FAMILY HISTORY: Denies history of major family history Allergies: No known drug allergies Coded Allergies: No Known Drug Allergies (Unverified Allergy, Unknown, 10/17/23) DIAGNOSTICS / RADIOLOGY: SERVICE 0824 REASON: SOB ORDERING PHYSICIAN: TUAN LOPEZ MD PROCEDURE: CHEST WO - CT CHEST W/O CONTRAST EXAM: CT Chest Without IV contrast. CLINICAL HISTORY: SOB TECHNIQUE: Axial computed tomography images of the chest without intravenous contrast. COMPARISON: None provided. FINDINGS: LUNGS: The chest tube enters through the lateral aspect of the 4th intercostal space, with its tip abutting the cardiac mediastinum, and subcutaneous emphysema is present along the track of the chest tube. Collapse consolidation of the right lung parenchyma predominantly in the right lower lobe. Dependent left basilar atelectasis. PLEURAL SPACES: Small hydropneumothorax. HEART: No cardiomegaly. No significant pericardial effusion. LYMPH NODES: No enlarged lymphadenopathy is evident. UPPER ABDOMEN: Isodense calculus with peripheral calcification measuring 1.6 cm in the gallbladder. BONES: Mild degenerative changes in the visualised spine. No acute osseous abnormality. IMPRESSION: 1. Right hydropneumothorax with chest tube in place 2. Right lower lobe collapse consolidation 3. Subcutaneous emphysema along chest tube track /[place] DICTATED BY: YOVANI BILLS Jr., MD DATE: 10/28/24 114 ELECTRONICALLY SIGNED BY: YOVANI BILLS Jr., MD DATE: 10/28/24 1142 ASSESSMENT: Home diabetic regimen: newly diagnosed diabetes Hba1c 11.6% glucose are improving now. Moderate to large right-sided pneumothorax status post chest tube placement in the ER, 10/28/2024 Concern for complicated parapneumonic effusion/empyema with right-sided hydropneumothorax, POA Right lower lobe consolidative pneumonia, POA newly diagnosed poorly controlled two diabetes mellitus, POA Tobacco use disorder long-term smoking history, POA Rule out chronic COPD of the lungs, POA PLAN: continue lantus 15 units daily and adjust for fasting glucose. continue Regular insulin 5 units daily and adjust for post-prandial glucose. decrease ssi to medium dose sliding scale insulin. Monitor glucose q x 6 hourly. Continue carb consistent diet. Keep glucose less than 180 mg/dl. Patient will need lantus and metformin at discharge. Vitals/Labs Vital Signs Date Time Temp Pulse Resp B/P (MAP) Pulse Ox O2 Delivery O2 Flow Rate FiO2 10/30/24 19:24 95 18 N/Cannula Low lpm 2.0 28 10/30/24 16:00 98.1 116/66 96 Laboratory Tests 10/30/24 03:22 Medications Current Medications Ketorolac Tromethamine 30 mg ONCE ONCE IM Last administered on 10/28/24at 06:08; Start 10/28/24 at 06:00; Stop 10/28/24 at 06:01; Status DC Methylprednisolone Sodium Succinate 60 mg ONCE ONCE IVP Last administered on 10/28/24at 06:17; Start 10/28/24 at 06:30; Stop 10/28/24 at 06:31; Status DC Albuterol 1 UDVIAL ONCE ONCE IH Last administered on 10/28/24at 07:27; Start 10/28/24 at 06:30; Stop 10/28/24 at 06:31; Status DC Lidocaine HCl 20 ml STK-MED ONCE .ROUTE; Start 10/28/24 at 07:20; Stop 10/28/24 at 07:20; Status DC Fentanyl Citrate 100 mcg STK-MED ONCE .ROUTE; Start 10/28/24 at 07:24; Stop 10/28/24 at 07:25; Status DC Ceftriaxone Sodium 2 gm ONCE ONCE IVPB Last administered on 10/28/24at 08:47; Start 10/28/24 at 08:00; Stop 10/28/24 at 08:01; Status DC Sodium Chloride 1,000 ml @ 0 mls/hr ONCE ONCE IV Last administered on 10/28/24at 09:33; Start 10/28/24 at 08:00; Stop 10/28/24 at 08:01; Status DC Sodium Chloride 1,000 ml @ 100 mls/hr Q10H IV Last administered on 10/29/24at 00:45; Start 10/28/24 at 09:00; Stop 10/29/24 at 10:34; Status DC Acetaminophen 650 mg Q6H PRN PO Last administered on 10/28/24at 23:18; Start 10/28/24 at 09:00; Stop 11/27/24 at 08:59 Ondansetron HCl 4 mg Q6H PRN IVP; Start 10/28/24 at 09:00; Stop 11/27/24 at 08:59 Budesonide 0.5 mg BIDRESP IH Last administered on 10/30/24at 19:22; Start 10/28/24 at 18:00; Stop 11/27/24 at 17:59 Albuterol 1 udvial Q6H PRN IH; Start 10/28/24 at 09:00; Stop 11/27/24 at 08:59 Cefepime HCl 2 gm Q12H IVPB Last administered on 10/30/24at 17:55; Start 10/28/24 at 18:00; Stop 11/07/24 at 17:59 Azithromycin 250 ml @ 250 mls/hr Q24H IVPB Last administered on 10/30/24at 08:52; Start 10/28/24 at 09:00; Stop 11/07/24 at 08:59 Guaifenesin/ Dextromethorphan 10 ml Q6H PRN PO; Start 10/28/24 at 09:00; Stop 11/27/24 at 08:59 Insulin Human Regular INSULIN SLIDING SCAL... ACHS SQ Last administered on 10/29/24at 06:27; Start 10/28/24 at 11:30; Stop 10/29/24 at 07:42; Status DC Thiamine HCl 100 mg Q24H IVP Last administered on 10/30/24at 08:53; Start 10/28/24 at 09:00; Stop 11/27/24 at 08:59 Hydromorphone HCl 0.5 mg Q4H PRN IVP Last administered on 10/30/24at 14:42; Start 10/28/24 at 09:00; Stop 11/02/24 at 08:59 Ketorolac Tromethamine 15 mg Q12H PRN IV Last administered on 10/29/24at 18:28; Start 10/28/24 at 09:00; Stop 10/30/24 at 09:00; Status DC Famotidine 20 mg BID IV Last administered on 10/30/24at 20:04; Start 10/28/24 at 09:00; Stop 11/27/24 at 08:59 Fentanyl Citrate 100 mcg ONCE ONCE IVP Last administered on 10/28/24at 09:59; Start 10/28/24 at 10:00; Stop 10/28/24 at 10:01; Status DC Lidocaine HCl 10 ml ONCE ONCE INJ Last administered on 10/28/24at 09:58; Start 10/28/24 at 10:00; Stop 10/28/24 at 10:01; Status DC Vancomycin HCl 1 each AD IV; Start 10/28/24 at 11:00; Stop 11/11/24 at 10:59 Insulin Glargine 12 units HS SQ; Start 10/28/24 at 21:00; Stop 10/28/24 at 17:00; Status DC Vancomycin HCl 250 ml @ 125 mls/hr ONCE ONCE IV Last administered on 10/28/24at 13:18; Start 10/28/24 at 13:00; Stop 10/28/24 at 14:59; Status DC Vancomycin HCl 250 ml @ 125 mls/hr Q12H IV Last administered on 10/30/24at 00:44; Start 10/29/24 at 01:00; Stop 10/30/24 at 12:56; Status DC Nicotine 14 mg DAILY TD Last administered on 10/30/24at 08:52; Start 10/29/24 at 09:00; Stop 11/28/24 at 08:59 Insulin Glargine 15 units HS SQ Last administered on 10/29/24at 20:51; Start 10/28/24 at 21:00; Stop 11/27/24 at 20:59 Insulin Human Regular INSULIN SLIDING SCAL... ACHS SQ Last administered on 10/29/24at 20:52; Start 10/29/24 at 11:30; Stop 10/29/24 at 22:09; Status DC Insulin Human Regular 5 unit TIDAC SQ Last administered on 10/30/24at 17:54; Start 10/30/24 at 07:30; Stop 11/29/24 at 07:29 Insulin Human Regular INSULIN SLIDING SCAL... ACHS SQ Last administered on 10/30/24at 11:51; Start 10/30/24 at 07:30; Stop 11/29/24 at 07:29 Potassium Chloride 100 ml @ 100 mls/hr AD PRN IV Last administered on 10/30/24at 17:53; Start 10/30/24 at 05:30; Stop 11/29/24 at 05:29 Potassium Chloride 20 meq AD PRN PO; Start 10/30/24 at 05:30; Stop 11/29/24 at 05:29 Potassium Chloride 20 meq AD PRN PO Last administered on 10/30/24at 08:54; Start 10/30/24 at 05:30; Stop 11/29/24 at 05:29 Magnesium Sulfate 50 ml @ 0 mls/hr PROTOCOL PRN IV Last administered on 10/30/24at 05:57; Start 10/30/24 at 05:30; Stop 11/29/24 at 05:29 Vancomycin HCl 250 ml @ 125 mls/hr ONCE ONCE IV Last administered on 10/30/24at 17:15; Start 10/30/24 at 14:00; Stop 10/30/24 at 15:59; Status DC Vancomycin HCl 250 ml @ 125 mls/hr Q8H IV; Start 10/31/24 at 01:00; Stop 11/10/24 at 00:59 Lidocaine HCl 5 ml STK-MED ONCE .ROUTE Last administered on 10/30/24at 15:43; Start 10/30/24 at 14:16; Stop 10/30/24 at 14:16; Status DC Hydromorphone HCl 2 mg ONCE ONCE IVP; Start 10/30/24 at 15:00; Stop 10/30/24 at 15:01; Status DC Iohexol 35,000 mg STK-MED ONCE IV; Start 10/30/24 at 15:04; Stop 10/30/24 at 15:05; Status DC SHUKRI ROBLES MD Oct 30, 2024 20:25
[2024-10-31] VITALS (12 sets, daily range): BP systolic 105–125; BP diastolic 55–82; PULSE 75–103; RESP 18–20; TEMP 97.8–98.6; O2SAT 95–100
[2024-10-31] MEDS: VANCOMYCIN 1G/250ML KIT 250 ML IV SCH ×2 (01:04→17:48)
[2024-10-31 03:58] LABS: IMMATURE GRANULOCYTE ABSOLUTE 0.06 K/uL (0-1); NUCLEATED RED BLOOD CELLS 0.0 % (0.0-0.19); PLATELET COUNT (AUTO) 190 K/uL (130-400); RED BLOOD CELL COUNT(AUTO) 3.47 MIL/uL (4.50-6.20); RED CELL DISTRIBUTION WIDTH 12.0 % (11.0-15.5); WHITE BLOOD COUNT (AUTO) 10.8 K/uL (4.8-10.8)
[2024-10-31 04:15] LABS: CREATININE 0.6 mg/dL (0.5-1.3); GLOMERULAR FILTR. RATE CALC 115.0 mL/min (>90); GLUCOSE,RANDOM 122.0 mg/dL (70-105); SODIUM SERUM 134.0 mmol/L (136-145); UREA NITROGEN, BLOOD 7.0 mg/dL (7-18)
--- NOTE | 2024-10-31 11:57 | PN ---
[facility] PROGRESS NOTE Date Patient Seen: Oct 31, 2024 Time of Visit: 11:52 Supervising Physician: [ ] Primary Care Physician: Self Referral Outpatient Specialists: None Inpatient Consults: Dr Preston CLARK MD Attending Physician: Dr. Finesse KENT PROBLEM LIST: Acute hypoxemic respiratory failure on admission Large hydro pneumothorax of the right lung Status post chest tube, now removed Large effusion to the right lung, not present on admission Suspected complicated parapneumonic effusion/empyema to the right lung Type 2 diabetes mellitus with hyperglycemia Tobacco use disorder Right lower lobe pneumonia Hypertension Morbid obesity, BMI 34 INTERVAL HISTORY: patient is seen at bedside the patient is on 2 liters O2 denies dyspnea at rest denies orthopnea complains of fatigue and dyspnea with exertion chest x-ray reviewed: large effusion to the right lung no fevers, no chills, no nausea or vomiting good appetite no constipation Plan: will place a right sided chest tube later today send for culture supplemental O2 Follow cultures and ABX per ID tele REVIEW OF SYSTEMS: Const: no fever, fatigue, + weight loss+ chills Eyes: no recent vision problems ENT: No congestion, ear pain, or sore throat C/V: no chest pain, palpitations or edema Resp: +No cough, congestion, wheezing , + Shortness of breath GI: No abdominal pain, nausea, vomiting, constipation, or diarrhea : No incontinence of or dyuria M/S: No joint or pain swelling Skin: No rash Neuro: no headache, focal numbness, or weakness, dizziness or seizures Psych: no depression or anxiety Heme: no abnormal bruising or bleeding Lymph: no swollen glands PHYSICAL EXAM: GENERAL: alert, weak, awake oriented x 3 HEENT: EOMI, Sclera non icteric, moist mucosa NECK: Supple, no JVD, trachea midline LUNGS: Diminished to right lower lobes clear lung sounds to the left. No wheezes, right chest tube in place HEART: Regular rate and rhythm. Normal S1 and S2, without murmurs ABD: Abdomen soft, nontender. Bowel sounds present EXT: No clubbing cyanosis or edema NEURO: Alert and oriented to person, follows commands Vital Signs (last 8hr) Date Time Temp Pulse Resp B/P (MAP) Pulse Ox O2 Delivery O2 Flow Rate FiO2 10/31/24 08:00 98.6 85 20 105/75 97 Nasal Cannula 10/31/24 06:21 84 18 10/31/24 06:21 84 18 N/Cannula Low lpm 2.0 10/31/24 04:00 98.2 75 18 120/78 95 Room Air LABS: Hematology Labs: Test 10/31/24 03:23 Range/Units White Blood Count 10.8 4.8-10.8 K/uL Red Blood Count 3.47 L 4.50-6.20 MIL/uL Hemoglobin 10.9 L 14.0-18.0 g/dL Hematocrit 31.9 L 42-54 % Mean Corpuscular Volume 91.9 79-99 fL Mean Corpuscular Hemoglobin 31.4 27.0-33.0 pg Mean Corpuscular Hemoglobin Concent 34.2 32.0-36.0 g/dL Red Cell Distribution Width 12.0 11.0-15.5 % Platelet Count 190 130-400 K/uL Mean Platelet Volume 11.7 H 7.5-10.5 fL Immature Granulocyte % (Auto) 0.6 0-1 % Neutrophils (%) (Auto) 65.1 40.0-77.0 % Lymphocytes (%) (Auto) 20.8 L 21.0-51.0 % Monocytes (%) (Auto) 9.2 3.0-13.0 % Eosinophils (%) (Auto) 4.0 0.0-8.0 % Basophils (%) (Auto) 0.3 0.0-5.0 % Neutrophils # (Auto) 7.1 1.8-7.7 K/uL Lymphocytes # (Auto) 2.3 1.0-4.8 K/uL Monocytes # (Auto) 1.0 0.1-1.0 K/uL Eosinophils # (Auto) 0.43 0.00-0.70 K/uL Basophils # (Auto) 0.03 0.00-0.20 K/uL Absolute Immature Granulocyte (auto 0.06 0-1 K/uL Nucleated Red Blood Cells 0.0 0.0-0.19 % Chemistry Labs: Test 10/31/24 06:36 10/31/24 03:23 10/30/24 03:22 Range/Units Whole Blood Glucose 132 H 70-110 MG/DL Sodium Level 134 L 136-145 mmol/L Potassium Level 3.1 L 3.5-5.1 mmol/L Chloride Level 102 101-111 mmol/L Carbon Dioxide Level 29 21-32 mmol/L Blood Urea Nitrogen 7 7-18 mg/dL Creatinine 0.6 0.5-1.3 mg/dL Glomerular Filtration Rate Calc 115 >90 mL/min Random Glucose 122 H 70-105 mg/dL Total Calcium 7.9 L 8.5-10.1 mg/dL Magnesium Level 1.90 1.80-2.40 mg/dL Procalcitonin 0.11 0.05-0.5 ng/mL Albumin 1.8 L 3.5-5.0 g/dL DIAGNOSTICS / RADIOLOGY RESULTS: [ ] PLAN NEURO: Minimize central acting medications as possible. Fall Precautions. Well lighted room through the day and minimize interruptions through the night to prevent acute delirium. PULMONARY: Supplemental 02 as needed Titrate Fio2 to keep Spo2 > or = 90% DuoNebs and CPT as needed IS hourly while awake for pulmonary hygiene Out of bed to chair as tolerated VAP Bundle Vent/BIPAP Settings: [ ] Driving pressure: [ ] P Plat: [ ] Static C: [ ] Static R: [ ] P/F Ratio: [ ] CARDIOVASCULAR: Follow hemodynamics. Titrate vasopressor to keep MAP >65 or systolic blood pressure >95mmHg DIPS: [ ] LINES: [ ] GI & NUTRITION: Continue nutritional support Aspirations precautions Prokinetic agents and laxatives as needed KIDNEYS & ELECTROLYTES: Strict monitoring of intake and output Daily weights Avoid nephrotoxic agents Monitor electrolytes and replace as needed Goal urine output of 30mL/hr or 0.5mL/kg/hr Urine output: [ ] Fluid Balance: [ ] ENDOCRINE: Maintain blood glucose between 100-180 at all times. Insulin sliding scale for blood glucose management INFECTIOUS DISEASE: Trend temperature. Treadwell-culture if febrile. Micro: [ ] Antibiotics: [ ] HEMATOLOGY & COAGULATION: Monitor H&H. Keep Hgb > 7 Transfuse 1 unit of PRBC for Hgb < 7 Transfuse 1 pack of platelets of platelets < 20, 000 Watch for any signs and symptoms of bleeding SKIN: Pressure ulcer prevention per facility protocol Rehab: PT/OT Prophylaxis: GI: [ ] DVT: [ ] Code Status: Full Resuscitation Disposition: [ ] Other: Total patient care time exceeds 35 minutes excluding all procedures. Case was discussed and seen with my supervising physician. The above plan was formulated and agreed upon. LINDSEY NASH Oct 31, 2024 11:57
--- NOTE | 2024-10-31 13:54 | HMCSR ---
APPROVED REPORT EXAM: Two-dimensional and M-mode echocardiogram with Doppler and color Doppler. INDICATION ICD: Massive pleural effusion on right 2D Dimensions RVDd3.1 cmLVEF(%)59.6 (>50%)LVED Vol(simp.)143.0 mL IVSd0.9 (0.7-1.1cm)FS(%)31 %LVES Vol(simp.)66.0 mL LVDd4.1 (3.8-5.6cm)LA (2D)4.2 (1.6-4.0cm)LVEF(%, simp.)54 % PWd1.1 (0.7-1.1cm)Ao Root(2D)2.9 (2.0-3.7cm) LVDs2.8 (2.5-4.0cm)LVOT diam2.1 (1.8-2.4cm) IVC diam1.6 cm Deformation Strain Apical 4-19.0 % Apical 2-16.1 % Apical 3-16.5 % Global Strain-17.2 % M-Mode Dimensions EPSS1.1 cm LA (MM)4.0 (1.6-4.0cm) Ao Root(MM)2.3 (2.0-3.7cm) Aortic Valve AoV Vmax2.0 m/[place] Peak GR15.5 mmHgLVOT Vmax1.4 m/s AoV VTI0.4 mAo Mean GR8.5 mmHgLVOT VTI0.26 m KINDRA (VMAX)2.43 cm2AVA (VTI) 2.4 cm2 Mitral Valve MV E Vmax77.2 cm/sDECEL Rpez243 ms MV A Vmax77.6 cm/sP 1/2 T71 ms E/A ratio1.0MVA (PHT)3.1 cm2 TDI E/E' Medial7.8E/E' Lateral4.8 Medial E' Peak V9.89 cm/sLateral E' Peak V16.04 cm/s Pulmonary Valve PV Vmax1.3 m/sPV VTI0.27 mPV Mean GR3.5 mmHg PV Peak GR6.5 mmHg Left Ventricle The left ventricle is normal size. GLS -17.0% There is normal left ventricular wall thickness. The LV EF is > 55%. The left ventricular diastolic function is normal. Right Ventricle The right ventricle is normal size. The right ventricular systolic function is normal. Atria The left atrium size is normal. The right atrium size is normal. Aortic Valve The aortic valve is normal in structure. No aortic regurgitation is present. No aortic valvular veget ation noted. There is no aortic valvular stenosis. Mitral Valve The mitral valve is mildly thickened and open well. There is trivial itral valve regurgitation noted . There are no mitral valve vegetation noted. There is no mitral valve stenosis. Tricuspid Valve The tricuspid valve is normal in structure. There is trace of cuspid valve regurgitation noted. There is no tricuspid valve vegetation. Pulmonic Valve The pulmonary valve is normal in structure. There is no pulmonic valvular regurgitation. Great Vessels The aortic root is normal in size. The IVC is normal in size and collapses >50% with inspiration. Pericardium There is no pericardial effusion. Other Information Quality : Adequate Conclusion The LVEF is > 55%. GLS -17.0%
[2024-10-31] MEDS ORDERED: COMPOUND IV MISC 1 EACH IVSOLN MISC PRN (14:30)
--- NOTE | 2024-10-31 17:14 | PN ---
[facility] PROGRESS NOTE Date of Service: Oct 31, 2024 Time of Service: 17:00 SUBJECTIVE: 53-year-old male with history of significant tobacco use disorder (40 pack year smoking history) presented to the ER with a chief complaint of shortness of breath and chest pain for 3 days which is progressive. Chest pain is worsened with deep inspiration and cough. He denied with a history of fever , cough with sputum production. He mentioned that he has been losing his weight for last1 year but his appetite is good. Reported the long history of smoking, I started at the age of 12-13 years of old but denied any alcohol use. He has not visited to any electric bath attendant before due to any respiratory issues. On presentation to the hospital, patient was noted to have T-max of 99.9 F, heart rate of 103, blood pressure of 143/80. Chest x-ray showed findings of [id number] right-sided pneumothorax. Twelve [place] pigtail catheter was placed in the ER relief of pneumothorax. CT chest without contrast was performed which showed findings of right-sided hydropneumothorax with right lower lobe consolidative pneumonia. He was admitted for further management. He is started on Zosyn, vancomycin and azithromycin. Pulmonology and Infectious Disease are consulted for further workup. 10/29/2024-the patient was evaluated this morning bedside. He did not complain of any acute event overnight. He feels his breathing is better now. He is hemodynamically stable and is on 2 L of oxygen. Pertinent labs for hemoglobin 11.4, ESR 122, random blood glucose 257, HbA1c 11.5. Calcium 8.5, CRP 157, albumin 2, LDH serum is 144. 225 ML of pleural fluid drained and lab result revealed LDH 1628, protein 4.7. According to light's criteria, pleural fluid seems to be exudative. MRSA screening for nasal swab was positive. On vancomycin Zosyn and azithromycin. Pulmonology at ID on the board. For newly diagnosed diabetes mellitus with HBA1c 11.5, endocrinology is consulted. Plan of management as discussed below. 10/30/2024-the patient was evaluated this morning bedside. He did not complain of any acute event overnight. He feels his breathing is better now. He is hemodynamically stable and is on 2 L of oxygen. Pertinent labs for hemoglobin 11.7, ESR 122, random blood glucose 168, HbA1c 11.5. Corrected Calcium 9.2, CRP 157, albumin 1.8 On vancomycin, cefepime and azithromycin. Repeat chest CT on October 29 showed large right pleural effusion which increased compared to prior CT chest. Pulmonology and ID on the board. Diabetes mellitus with HBA1c 11.5. Endocrinology started Lantus 15 units daily, regular insulin 5 units t.i.d. and medium dose sliding scale insulin. Further Plan of management as discussed below. 10/31/2024-the patient was evaluated this morning bedside. He did not complain of any acute event overnight. He feels his breathing is better now. He is hemodynamically stable and is on 2 L of oxygen. Pertinent labs for hemoglobin 10.9, ESR 122, random blood glucose 132, HbA1c 11.5. CRP 157, albumin 1.8 On vancomycin, cefepime and azithromycin. Repeat chest CT on October 29 showed large right pleural effusion which increased compared to prior CT chest. Echocardiogram revealed ejection fraction more than 55%. Pulmonology and ID on the board. With the concern of right diaphragm paralysis sniff test was ordered, which was not commented on report because of large pleural effusion. Diabetes mellitus with HBA1c 11.5. Endocrinology started Lantus 15 units daily, regular insulin 5 units t.i.d. and medium dose sliding scale insulin. Further Plan of management as discussed below. REVIEW OF SYSTEMS CONSTITUTIONAL: malaise, fatigue NEUROLOGICAL: Denies headache, amaurosis fugax, motor weakness, sensory deficit ENT: No hearing loss, otalgia, rhinitis CARDIOVASCULAR: Denies any exertional angina, dyspnea on exertion PULMONARY: SOB, pleurisy SLEEP: Denies morning headaches, daytime somnolence or napping. Denies difficulty falling asleep, staying asleep, waking from sleep. Denies knowledge of snoring. GASTROINTESTINAL: Denies any type of dysphagia nausea, vomiting, abdominal pain, diarrhea, constipation GENITOURINARY: Denies frequency, urgency ENDOCRINOLOGIC: Denies polyuria, polydipsia, polyphagia HEMATOLOGIC: Denies thrombophilia/previous clots, or coagulopathy/bleeding disorders. ONCOLOGIC: Denies personal history of malignancy. DERMATOLOGIC: Denies rashes or pruritus. PSYCHIATRIC: Denies any suicidal or homicidal ideation. PHYSICAL EXAM GENERAL APPEARANCE: The patient is awake, alert, and oriented, in no acute cardiopulmonary distress. NEUROLOGICAL: Cranial nerves II-XII grossly intact. Motor is 5/5 in bilateral upper and lower extremities proximal to distal. No sensory deficits. HEENT: Face is symmetric. Pupils are equal and reactive. Extraocular movements are intact. NECK: Supple. No JVD. No thyromegaly. No submental, submandibular, pre- /postauricular, occipital or supraclavicular lymphadenopathy. CHEST: Normal chest expansion. No Telemetry. LUNGS: Decreased breath sound of the right lung base with crackles noted CARDIOVASCULAR: Regular. S1 and S2 normal. No appreciable rubs, murmurs or gallops. ABDOMEN: Soft, nontender, and nondistended. There is no rebound, voluntary gu arding, or rigidity. : Deferred. No [place]. EXTREMITIES: Non-edematous and not cyanotic. No clubbing. Good capillary refill. SKIN: No skin breakdown. Vital Signs (last 8hr) Date Time Temp Pulse Resp B/P (MAP) Pulse Ox O2 Delivery O2 Flow Rate FiO2 10/31/24 12:00 97.9 86 20 110/65 97 Nasal Cannula LABS: Laboratory: Test 10/31/24 15:39 10/31/24 11:56 10/31/24 03:23 10/30/24 17:50 Range/Units Vancomycin Level Trough 2.7 L 10.0-20.0 UG/ML Whole Blood Glucose 138 H 70-110 MG/DL White Blood Count 10.8 4.8-10.8 K/uL Red Blood Count 3.47 L 4.50-6.20 MIL/uL Hemoglobin 10.9 L 14.0-18.0 g/dL Hematocrit 31.9 L 42-54 % Mean Corpuscular Volume 91.9 79-99 fL Mean Corpuscular Hemoglobin 31.4 27.0-33.0 pg Mean Corpuscular Hemoglobin Concent 34.2 32.0-36.0 g/dL Red Cell Distribution Width 12.0 11.0-15.5 % Platelet Count 190 130-400 K/uL Mean Platelet Volume 11.7 H 7.5-10.5 fL Immature Granulocyte % (Auto) 0.6 0-1 % Neutrophils (%) (Auto) 65.1 40.0-77.0 % Lymphocytes (%) (Auto) 20.8 L 21.0-51.0 % Monocytes (%) (Auto) 9.2 3.0-13.0 % Eosinophils (%) (Auto) 4.0 0.0-8.0 % Basophils (%) (Auto) 0.3 0.0-5.0 % Neutrophils # (Auto) 7.1 1.8-7.7 K/uL Lymphocytes # (Auto) 2.3 1.0-4.8 K/uL Monocytes # (Auto) 1.0 0.1-1.0 K/uL Eosinophils # (Auto) 0.43 0.00-0.70 K/uL Basophils # (Auto) 0.03 0.00-0.20 K/uL Absolute Immature Granulocyte (auto 0.06 0-1 K/uL Nucleated Red Blood Cells 0.0 0.0-0.19 % Sodium Level 134 L 136-145 mmol/L Potassium Level 3.1 L 3.5-5.1 mmol/L Chloride Level 102 101-111 mmol/L Carbon Dioxide Level 29 21-32 mmol/L Blood Urea Nitrogen 7 7-18 mg/dL Creatinine 0.6 0.5-1.3 mg/dL Glomerular Filtration Rate Calc 115 >90 mL/min Random Glucose 122 H 70-105 mg/dL Total Calcium 7.9 L 8.5-10.1 mg/dL Magnesium Level 1.90 1.80-2.40 mg/dL Procalcitonin 0.11 0.05-0.5 ng/mL Urine Color LIGHT-YELLOW YELLOW Urine Appearance CLEAR CLEAR Urine pH 7.0 5.0-8.0 Urine Specific [place] 1.044 H 1.001-1.031 Urine Protein NEGATIVE NEGATIVE mg/dL Urine Glucose (UA) 30 H NEGATIVE mg/dL Urine Ketones NEGATIVE NEGATIVE mg/dL Urine Occult Blood NEGATIVE NEGATIVE Urine Nitrate NEGATIVE NEGATIVE Urine Bilirubin NEGATIVE NEGATIVE mg/dL Urine Urobilinogen 4.0 H 0.2-1.0 mg/dL Urine Leukocyte Esterase NEGATIVE NEGATIVE Devi/uL Urine RBC 2-5 H 0-1 /HPF Urine WBC 0-1 0-1 /HPF Urine Bacteria None None Seen /HPF Test 10/30/24 03:22 Range/Units Albumin 1.8 L 3.5-5.0 g/dL Current Medications Medications (Trade) Dose Ordered Sig/Estela Route PRN Reason Start Time Stop Time Status Last Admin Dose Admin Acetaminophen (TYLenol 325MG TAB) 650 mg Q6H PRN PO MILD PAIN (1-3) 10/28/24 09:00 11/27/24 08:59 10/30/24 22:43 650 MG Albuterol (DUOneb) 1 udvial Q6H PRN IH SHORTNESS OF BREATH 10/28/24 09:00 11/27/24 08:59 Azithromycin 250 ml @ 250 mls/hr Q24H IVPB 10/28/24 09:00 11/07/24 08:59 10/31/24 10:06 250 MLS/HR Budesonide (Pulmicort 0.5 Mg/2ml) 0.5 mg BIDRESP IH 10/28/24 18:00 11/27/24 17:59 10/31/24 06:17 0.5 MG Cefepime HCl (MAXipime 2 gm vial) 2 gm Q12H IVPB 10/28/24 18:00 11/07/24 17:59 10/31/24 05:13 2 GM Famotidine (Pepcid 20mg Vial) 20 mg BID IV 10/28/24 09:00 11/27/24 08:59 10/31/24 10:06 20 MG Guaifenesin/ Dextromethorphan (RobiTUSSin DM 200/20MG 10ML) 10 ml Q6H PRN PO COUGH 10/28/24 09:00 11/27/24 08:59 Hydromorphone HCl (DiLAUDid 0.5MG INJ) 0.5 mg Q4H PRN IVP SEVERE PAIN (7-10) 10/28/24 09:00 11/02/24 08:59 10/31/24 14:37 0.5 MG Insulin Glargine (LANtus 100 UNITS/ML 10 ML VIAL) 12 units HS SQ 10/28/24 21:00 10/28/24 17:00 DC Insulin Glargine (LANtus 100 UNITS/ML 10 ML VIAL) 15 units HS SQ 10/28/24 21:00 11/27/24 20:59 10/30/24 21:07 15 UNITS Insulin Human Regular (humuLIN R 100 UNIT/ML 3ML) 5 unit TIDAC SQ 10/30/24 07:30 11/29/24 07:29 10/30/24 17:54 5 UNIT Insulin Human Regular (humuLIN R 100 UNIT/ML 3ML) INSULIN SLIDING SCAL... ACHS SQ 10/28/24 11:30 10/29/24 07:42 DC 10/29/24 06:27 4 UNIT Insulin Human Regular (humuLIN R 100 UNIT/ML 3ML) INSULIN SLIDING SCAL... ACHS SQ 10/29/24 11:30 10/29/24 22:09 DC 10/29/24 20:52 4 UNIT Insulin Human Regular (humuLIN R 100 UNIT/ML 3ML) INSULIN SLIDING SCAL... ACHS SQ 10/30/24 07:30 11/29/24 07:29 10/30/24 21:06 6 UNIT Ketorolac Tromethamine (toRADol) 15 mg Q12H PRN IV MODERATE PAIN (4-6) 10/28/24 09:00 10/30/24 09:00 DC 10/29/24 18:28 15 MG Magnesium Sulfate 50 ml @ 0 mls/hr PROTOCOL PRN IV low magnesium 10/30/24 05:30 11/29/24 05:29 10/30/24 05:57 25 MLS/HR Nicotine (Nicoderm) 14 mg DAILY TD 10/29/24 09:00 11/28/24 08:59 10/31/24 10:15 14 MG Ondansetron HCl (zoFRAN 4MG INJ) 4 mg Q6H PRN IVP NAUSEA/VOMITING 10/28/24 09:00 11/27/24 08:59 Potassium Chloride 100 ml @ 100 mls/hr AD PRN IV POTASSIUM PROTOCOL 10/30/24 05:30 11/29/24 05:29 10/30/24 17:53 100 MLS/HR Potassium Chloride (K-Dur/Klor-Con 20meq) 20 meq AD PRN PO POTASSIUM PROTOCOL 10/30/24 05:30 11/29/24 05:29 10/31/24 05:17 20 MEQ Potassium Chloride (KCl 10% Elixir 20meq/15ml) 20 meq AD PRN PO POTASSIUM PROTOCOL 10/30/24 05:30 11/29/24 05:29 Sodium Chloride 1,000 ml @ 100 mls/hr Q10H IV 10/28/24 09:00 10/29/24 10:34 DC 10/29/24 00:45 100 MLS/HR Thiamine HCl (Vitamin B-1) 100 mg Q24H IVP 10/28/24 09:00 11/27/24 08:59 10/31/24 10:05 100 MG Vancomycin HCl 250 ml @ 125 mls/hr Q12H IV 10/29/24 01:00 10/30/24 12:56 DC 10/30/24 00:44 125 MLS/HR Vancomycin HCl 250 ml @ 125 mls/hr Q8H IV 10/31/24 01:00 11/10/24 00:59 10/31/24 10:18 125 MLS/HR Vancomycin HCl (Vancomycin Protocol) 1 each AD IV 10/28/24 11:00 11/11/24 10:59 DIAGNOSTICS / RADIOLOGY: [ ] ASSESSMENT: Right lower lobe consolidative pneumonia, POA Moderate to large right-sided pneumothorax status post chest tube placement POA Right-sided hydropneumothorax, POA Acute hypoxic respiratory failure POA Newly diagnosed diabetes mellitus, POA Rule out chronic COPD of the lungs, POA Anemia POA Tobacco use disorder long-term smoking history, POA PLAN: Right lower lobe consolidative pneumonia, POA Moderate to large right-sided pneumothorax status post chest tube placement POA Right-sided hydropneumothorax, POA Acute hypoxic respiratory failure, POA -On admission chest x-ray revealed [id number] right-sided pneumothorax, 2 [place] pigtail was placed. Post tube placement, CT chest revealed right-sided hydropneumothorax with collapse consolidation. The hydropneumothorax may be secondary to pneumonia. CRP 157, procalcitonin 0.39, ESR 122, pleural fluid LDL is 1628 pleural fluid protein 4.7. Pleural effusion seems to be exudative of was in nature as per light's criteria. Repeat chest CT on 0 10/29/24 revealed large right-sided pleural effusion. Echocardiogram on 10/31/2024 . Ejection fraction more than 55%. Chest fluoroscopy done was unable to report on right hemidiaphragm due to large right-sided pleural effusion. CT abdomen pelvis revealed no concerning finding. -empirically started on cefepime, vancomycin and azithromycin. -oxygen supplementation for O2 saturation above 92 per -continue on chest tube management -pleural fluid drained was sent for the labs including culture and Gram staining. -started on Pulmicort q.12 hours and duo nebs q.6 hours PRN. Toradol for pain PRN -ordered sniff test for the concern of right diaphragm paralysis which will be followed by possible bronchoscopy as per pulmonology -We will get echo , QuantiFERON test, urinalysis, urine protein creatinine ratio -we will put chest tube to get the pleural fluid out. -pulmonology and Infectious Disease consulted. We will follow the recommendations. -we will monitor clinical improvement along with interval chest x-ray and repeat labs. Newly diagnosed diabetes mellitus, POA -HGB A1c 11.5, blood glucose 132 -as per Endocrinology started on Crxpss17 units, regular insulin5 units t.i.d. and medium dose SSI -we will monitor blood glucose closely. Tobacco use disorder long-term smoking history, POA -long history of extensive smoking, pack year 40 -placed on nicotine patch -we will encourage patient for smoking cessation -we will monitor signs of withdrawal. Anemia -hemoglobin this morning 10.9, iron 29, TIBC 191, saturation 15.1, ferritin 3282 -we will get stool FOBT -we will monitor hemoglobin. Rule out chronic COPD of the lungs, POA -long history of extensive smoking with pack year 40, patient may have COPD with some degree of shortness of breath at baseline -started on Pulmicort q.12 hours and duo nebs q.6 hours PRN we will for SOB as well -need to get pulmonology function test at some point of time to rule out COPD. Tobacco use disorder long-term smoking history, POA -long history of extensive smoking, pack year 40 -we will encourage patient for smoking cessation -on nicotine patch -we will monitor signs of withdrawal. GI prophylaxis: Famotidine DVT prophylaxis: SCD Status: Full code ATTESTATION BY PHYSICIAN I have seen and examined the patient. I reviewed the documentation, medical decision making, and treatment plan as noted by the resident provider above. I agree with the findings and plan of care. Arnaldo Deras MD, SUNIL MD Oct 31, 2024 17:14
[2024-10-31] MEDS: PoTASSium chl 10% ELIXIR 20MEQ 20 MEQ/15 ML UDCUP PO PRN (17:51)
--- NOTE | 2024-10-31 18:19 | PRN ---
INTRAOPERATIVE ULTRASOUND GUIDANCE Right. Left. PERCUTANEOUS CHEST TUBE PLACEMENT. Indication: Acute hypoxemic respiratory failure on admission Large hydro pneumothorax of the right lung Status post chest tube, now removed Large effusion to the right lung, not present on admission Suspected complicated parapneumonic effusion/empyema to the right lung INFORMED CONSENT OBTAINED TIME OUT PER HOSPITAL PROTOCOL HAND HYGIENE LIDOCAINE 1% [address] scan from 10/30/2024. UNDER STRICT STERILE CONDITIONS WITH THE USE OF AN ULTRASOUND PROBE COVERED WITH A STERILE SHEATH A NEEDLE IS ADVANCED INTO THE PLEURAL FLUID. ULTRASOUND DEMONSTRATES GOOD PLACEMENT OF THE NEEDLE. Unfortunately unable to advance the wire more than 2-3 cm. Needle was repositioned multiple times but unable to advance guidewire. Procedure was discontinued, a chest x-ray has been ordered. Patient's vital signs remained stable. No change in oxygenation. Patient reporting no chest pain, shortness of breath or discomfort following the procedure. Procedure performed by Dr. Oliver Huff and Lindsey VILLALOBOS. Discussion with patient's primary, updated that unable to place chest tube. Plan discussed with nursing. We will follow pending chest x-ray. LINDSEY NASH Oct 31, 2024 18:19
--- NOTE | 2024-10-31 18:55 | PN ---
Endocrinology progress note DOS: 10/31/24 subjective: glucose are improving Home diabetic regimen: newly diagnosed diabetes Hba1c 11.6% REVIEW OF SYSTEMS CONSTITUTIONAL: malaise, fatigue NEUROLOGICAL: Denies headache, amaurosis fugax, motor weakness, sensory deficit, vertigo/spinning sensation, gait abnormalities, or tremors. ENT: No hearing loss, otalgia, otorrhea, rhinitis, rhinorrhea, hoarseness, or sore throat. CARDIOVASCULAR: Denies any exertional angina, dyspnea on exertion, orthopnea, paroxysmal nocturnal dyspnea, palpitations, life-threatening arrhythmias, claudication. PULMONARY: SOB, pleurisy SLEEP: Denies morning headaches, daytime somnolence or napping. Denies difficulty falling asleep, staying asleep, waking from sleep. Denies knowledge of snoring. GASTROINTESTINAL: Denies any type of dysphagia to either liquids or solids. Denies nausea, vomiting, pyrosis, early satiety, abdominal pain, diarrhea, constipation, or changes in stool consistency or caliber. Denies coffee-ground emesis, hematemesis, hematochezia, or melanotic stools. GENITOURINARY: Denies frequency, urgency, nocturia, hematuria or incontinence (Storage/Irritative symptoms.) Low urinary stream, straining to void, urinary intermittency or hesitancy, splitting of the voiding stream, terminal dribbling. ENDOCRINOLOGIC: Denies polyuria, polydipsia, polyphagia or heat/cold intolerances. HEMATOLOGIC: Denies thrombophilia/previous clots, or coagulopathy/bleeding disorders. ONCOLOGIC: Denies personal history of malignancy. DERMATOLOGIC: Denies rashes or pruritus. PSYCHIATRIC: Denies any suicidal or homicidal ideation. Denies hallucinations. PAST MEDICAL HISTORY: Tobacco use disorder PAST SURGICAL HISTORY: Denies history of major surgeries previously PAST SOCIAL HISTORY: Patient smokes about a pack a day for 40 years, drinks socially, denies any other illicit drug use FAMILY HISTORY: Denies history of major family history Allergies: No known drug allergies Coded Allergies: No Known Drug Allergies (Unverified Allergy, Unknown, 10/17/23) DIAGNOSTICS / RADIOLOGY: SERVICE 0824 REASON: SOB ORDERING PHYSICIAN: TUAN LOPEZ MD PROCEDURE: CHEST WO - CT CHEST W/O CONTRAST EXAM: CT Chest Without IV contrast. CLINICAL HISTORY: SOB TECHNIQUE: Axial computed tomography images of the chest without intravenous contrast. COMPARISON: None provided. FINDINGS: LUNGS: The chest tube enters through the lateral aspect of the 4th intercostal space, with its tip abutting the cardiac mediastinum, and subcutaneous emphysema is present along the track of the chest tube. Collapse consolidation of the right lung parenchyma predominantly in the right lower lobe. Dependent left basilar atelectasis. PLEURAL SPACES: Small hydropneumothorax. HEART: No cardiomegaly. No significant pericardial effusion. LYMPH NODES: No enlarged lymphadenopathy is evident. UPPER ABDOMEN: Isodense calculus with peripheral calcification measuring 1.6 cm in the gallbladder. BONES: Mild degenerative changes in the visualised spine. No acute osseous abnormality. IMPRESSION: 1. Right hydropneumothorax with chest tube in place 2. Right lower lobe collapse consolidation 3. Subcutaneous emphysema along chest tube track /[place] DICTATED BY: YOVANI BILLS Jr., MD DATE: 10/28/24 114 ELECTRONICALLY SIGNED BY: YOVANI BILLS Jr., MD DATE: 10/28/24 1142 ASSESSMENT: Home diabetic regimen: newly diagnosed diabetes Hba1c 11.6% glucose are improving now. Moderate to large right-sided pneumothorax status post chest tube placement in the ER, 10/28/2024 Concern for complicated parapneumonic effusion/empyema with right-sided hydropneumothorax, POA Right lower lobe consolidative pneumonia, POA newly diagnosed poorly controlled two diabetes mellitus, POA Tobacco use disorder long-term smoking history, POA Rule out chronic COPD of the lungs, POA PLAN: continue lantus 15 units daily and adjust for fasting glucose. continue Regular insulin 5 units daily and adjust for post-prandial glucose. decrease ssi to medium dose sliding scale insulin. Monitor glucose q x 6 hourly. Continue carb consistent diet. Keep glucose less than 180 mg/dl. Patient will need lantus and metformin at discharge. Vitals/Labs Vital Signs Date Time Temp Pulse Resp B/P (MAP) Pulse Ox O2 Delivery O2 Flow Rate FiO2 10/31/24 18:37 87 20 N/Cannula Low lpm 2.0 28 10/31/24 16:00 98.6 125/82 96 Laboratory Tests 10/31/24 03:23 Medications Current Medications Ketorolac Tromethamine 30 mg ONCE ONCE IM Last administered on 10/28/24at 06:08; Start 10/28/24 at 06:00; Stop 10/28/24 at 06:01; Status DC Methylprednisolone Sodium Succinate 60 mg ONCE ONCE IVP Last administered on 10/28/24at 06:17; Start 10/28/24 at 06:30; Stop 10/28/24 at 06:31; Status DC Albuterol 1 UDVIAL ONCE ONCE IH Last administered on 10/28/24at 07:27; Start 10/28/24 at 06:30; Stop 10/28/24 at 06:31; Status DC Lidocaine HCl 20 ml STK-MED ONCE .ROUTE; Start 10/28/24 at 07:20; Stop 10/28/24 at 07:20; Status DC Fentanyl Citrate 100 mcg STK-MED ONCE .ROUTE; Start 10/28/24 at 07:24; Stop 10/28/24 at 07:25; Status DC Ceftriaxone Sodium 2 gm ONCE ONCE IVPB Last administered on 10/28/24at 08:47; Start 10/28/24 at 08:00; Stop 10/28/24 at 08:01; Status DC Sodium Chloride 1,000 ml @ 0 mls/hr ONCE ONCE IV Last administered on 10/28/24at 09:33; Start 10/28/24 at 08:00; Stop 10/28/24 at 08:01; Status DC Sodium Chloride 1,000 ml @ 100 mls/hr Q10H IV Last administered on 10/29/24at 00:45; Start 10/28/24 at 09:00; Stop 10/29/24 at 10:34; Status DC Acetaminophen 650 mg Q6H PRN PO Last administered on 10/30/24at 22:43; Start 10/28/24 at 09:00; Stop 11/27/24 at 08:59 Ondansetron HCl 4 mg Q6H PRN IVP; Start 10/28/24 at 09:00; Stop 11/27/24 at 08:59 Budesonide 0.5 mg BIDRESP IH Last administered on 10/31/24at 18:29; Start 10/28/24 at 18:00; Stop 11/27/24 at 17:59 Albuterol 1 udvial Q6H PRN IH; Start 10/28/24 at 09:00; Stop 11/27/24 at 08:59 Cefepime HCl 2 gm Q12H IVPB Last administered on 10/31/24at 17:51; Start 10/28/24 at 18:00; Stop 11/07/24 at 17:59 Azithromycin 250 ml @ 250 mls/hr Q24H IVPB Last administered on 10/31/24at 10:06; Start 10/28/24 at 09:00; Stop 11/07/24 at 08:59 Guaifenesin/ Dextromethorphan 10 ml Q6H PRN PO; Start 10/28/24 at 09:00; Stop 11/27/24 at 08:59 Insulin Human Regular INSULIN SLIDING SCAL... ACHS SQ Last administered on 10/29/24at 06:27; Start 10/28/24 at 11:30; Stop 10/29/24 at 07:42; Status DC Thiamine HCl 100 mg Q24H IVP Last administered on 10/31/24at 10:05; Start 10/28/24 at 09:00; Stop 11/27/24 at 08:59 Hydromorphone HCl 0.5 mg Q4H PRN IVP Last administered on 10/31/24at 14:37; Start 10/28/24 at 09:00; Stop 11/02/24 at 08:59 Ketorolac Tromethamine 15 mg Q12H PRN IV Last administered on 10/29/24at 18:28; Start 10/28/24 at 09:00; Stop 10/30/24 at 09:00; Status DC Famotidine 20 mg BID IV Last administered on 10/31/24at 10:06; Start 10/28/24 at 09:00; Stop 11/27/24 at 08:59 Fentanyl Citrate 100 mcg ONCE ONCE IVP Last administered on 10/28/24at 09:59; Start 10/28/24 at 10:00; Stop 10/28/24 at 10:01; Status DC Lidocaine HCl 10 ml ONCE ONCE INJ Last administered on 10/28/24at 09:58; Start 10/28/24 at 10:00; Stop 10/28/24 at 10:01; Status DC Vancomycin HCl 1 each AD IV; Start 10/28/24 at 11:00; Stop 11/11/24 at 10:59 Insulin Glargine 12 units HS SQ; Start 10/28/24 at 21:00; Stop 10/28/24 at 17:00; Status DC Vancomycin HCl 250 ml @ 125 mls/hr ONCE ONCE IV Last administered on 10/28/24at 13:18; Start 10/28/24 at 13:00; Stop 10/28/24 at 14:59; Status DC Vancomycin HCl 250 ml @ 125 mls/hr Q12H IV Last administered on 10/30/24at 00:44; Start 10/29/24 at 01:00; Stop 10/30/24 at 12:56; Status DC Nicotine 14 mg DAILY TD Last administered on 10/31/24at 10:15; Start 10/29/24 at 09:00; Stop 11/28/24 at 08:59 Insulin Glargine 15 units HS SQ Last administered on 10/30/24at 21:07; Start 10/28/24 at 21:00; Stop 11/27/24 at 20:59 Insulin Human Regular INSULIN SLIDING SCAL... ACHS SQ Last administered on 10/29/24at 20:52; Start 10/29/24 at 11:30; Stop 10/29/24 at 22:09; Status DC Insulin Human Regular 5 unit TIDAC SQ Last administered on 10/31/24at 17:45; Start 10/30/24 at 07:30; Stop 11/29/24 at 07:29 Insulin Human Regular INSULIN SLIDING SCAL... ACHS SQ Last administered on 10/31/24at 17:44; Start 10/30/24 at 07:30; Stop 11/29/24 at 07:29 Potassium Chloride 100 ml @ 100 mls/hr AD PRN IV Last administered on 10/30/24at 17:53; Start 10/30/24 at 05:30; Stop 11/29/24 at 05:29 Potassium Chloride 20 meq AD PRN PO Last administered on 10/31/24at 17:51; Start 10/30/24 at 05:30; Stop 11/29/24 at 05:29 Potassium Chloride 20 meq AD PRN PO Last administered on 10/31/24at 05:17; Start 10/30/24 at 05:30; Stop 11/29/24 at 05:29 Magnesium Sulfate 50 ml @ 0 mls/hr PROTOCOL PRN IV Last administered on 10/30/24at 05:57; Start 10/30/24 at 05:30; Stop 11/29/24 at 05:29 Vancomycin HCl 250 ml @ 125 mls/hr ONCE ONCE IV Last administered on 10/30/24at 17:15; Start 10/30/24 at 14:00; Stop 10/30/24 at 15:59; Status DC Vancomycin HCl 250 ml @ 125 mls/hr Q8H IV Last administered on 10/31/24at 10:18; Start 10/31/24 at 01:00; Stop 10/31/24 at 17:06; Status DC Lidocaine HCl 5 ml STK-MED ONCE .ROUTE Last administered on 10/30/24at 15:43; Start 10/30/24 at 14:16; Stop 10/30/24 at 14:16; Status DC Hydromorphone HCl 2 mg ONCE ONCE IVP; Start 10/30/24 at 15:00; Stop 10/30/24 at 15:01; Status DC Iohexol 35,000 mg STK-MED ONCE IV; Start 10/30/24 at 15:04; Stop 10/30/24 at 15:05; Status DC Iron Sucrose 300 mg ONCE ONCE IV; Start 10/31/24 at 13:30; Stop 10/31/24 at 13:33; Status DC Iron Sucrose 300 mg/Sodium Chloride 250 ml @ 83 mls/hr ONCE ONCE IV; Start 10/31/24 at 21:00; Stop 11/01/24 at 00:00 Hydromorphone HCl 0.5 mg STAT ONCE IVP; Start 10/31/24 at 15:00; Stop 10/31/24 at 15:01; Status DC Vancomycin HCl 250 ml @ 125 mls/hr Q6H IV Last administered on 10/31/24at 17:48; Start 10/31/24 at 17:30; Stop 11/10/24 at 00:59 SHUKRI ROBLES MD Oct 31, 2024 18:55
[2024-10-31] MEDS: IRON SUCROSE COMPLEX 300 MG+/NS 250ML IV ONE (20:39)
--- NOTE | 2024-10-31 20:45 | PN ---
INFECTIOUS DISEASE PROGRESS NOTE Date of Service: Oct 31, 2024 SUBJECTIVE: Patient was seen and examined at bedside in room 220. Patient is awake, alert and oriented. The sniff test done yesterday showed a large right-sided pleural effusion and per report patient will be undergoing a chest tube placement today by the pulmonology team. Remains afebrile, temperature is 98.6. Low potassium level being replaced. We will continue on vancomycin and cefepime. We will continue to follow patient's care. PHYSICAL EXAM EYES: Anicteric. Pupils equal and reactive. HENT: No oral thrush seen, moist Oral mucosa NECK: Supple, no JVD or thyromegaly. LUNGS: No rales, no rhonchi. Diminished breath sounds. Currently on oxygen support via nasal cannula. CARDIOVASCULAR: S1, S2 regular. No murmur heard. ABDOMEN: Soft, non tender, bowel sounds present, no organomegaly CENTRAL NERVOUS SYSTEM: Awake, alert, oriented x 3. . SKIN: No rashes, no swelling. LYMPHATICS: No peripheral lymphadenopathy MUSCULOSKELETAL: No joint swelling, erythema or tenderness. EXTREMITIES: No cyanosis or clubbing. BACK: No deformity, no pressure ulcer. GENITOURINARY: No dysuria or hematuria. Vital Sign (Last 12 Hours) 10/31/24 10/31/24 10/31/24 10/31/24 12:00 16:00 18:29 18:37 Temp 97.9 98.6 Pulse 86 77 88 87 Resp 20 20 20 20 B/P (MAP) 110/65 125/82 Pulse Ox 97 96 O2 Delivery Nasal Cannula Nasal Cannula N/Cannula Low lpm O2 Flow Rate 2.0 FiO2 28 10/31/24 19:00 Temp 97.9 Pulse 103 Resp 18 B/P (MAP) 122/76 Pulse Ox 98 O2 Delivery Room Air Intake & Output (last 24hrs) 10/30/24 10/30/24 10/31/24 15:00 23:00 07:00 Intake Total 125 ml 250.0 ml Output Total 400 ml 700 ml Balance -275 ml -450.0 ml LABS: Laboratory: Test 10/31/24 20:15 10/31/24 15:39 10/31/24 03:23 10/30/24 17:50 Range/Units Whole Blood Glucose 210 H 70-110 MG/DL Vancomycin Level Trough 2.7 L 10.0-20.0 UG/ML White Blood Count 10.8 4.8-10.8 K/uL Red Blood Count 3.47 L 4.50-6.20 MIL/uL Hemoglobin 10.9 L 14.0-18.0 g/dL Hematocrit 31.9 L 42-54 % Mean Corpuscular Volume 91.9 79-99 fL Mean Corpuscular Hemoglobin 31.4 27.0-33.0 pg Mean Corpuscular Hemoglobin Concent 34.2 32.0-36.0 g/dL Red Cell Distribution Width 12.0 11.0-15.5 % Platelet Count 190 130-400 K/uL Mean Platelet Volume 11.7 H 7.5-10.5 fL Immature Granulocyte % (Auto) 0.6 0-1 % Neutrophils (%) (Auto) 65.1 40.0-77.0 % Lymphocytes (%) (Auto) 20.8 L 21.0-51.0 % Monocytes (%) (Auto) 9.2 3.0-13.0 % Eosinophils (%) (Auto) 4.0 0.0-8.0 % Basophils (%) (Auto) 0.3 0.0-5.0 % Neutrophils # (Auto) 7.1 1.8-7.7 K/uL Lymphocytes # (Auto) 2.3 1.0-4.8 K/uL Monocytes # (Auto) 1.0 0.1-1.0 K/uL Eosinophils # (Auto) 0.43 0.00-0.70 K/uL Basophils # (Auto) 0.03 0.00-0.20 K/uL Absolute Immature Granulocyte (auto 0.06 0-1 K/uL Nucleated Red Blood Cells 0.0 0.0-0.19 % Sodium Level 134 L 136-145 mmol/L Potassium Level 3.1 L 3.5-5.1 mmol/L Chloride Level 102 101-111 mmol/L Carbon Dioxide Level 29 21-32 mmol/L Blood Urea Nitrogen 7 7-18 mg/dL Creatinine 0.6 0.5-1.3 mg/dL Glomerular Filtration Rate Calc 115 >90 mL/min Random Glucose 122 H 70-105 mg/dL Total Calcium 7.9 L 8.5-10.1 mg/dL Magnesium Level 1.90 1.80-2.40 mg/dL Procalcitonin 0.11 0.05-0.5 ng/mL Urine Color LIGHT-YELLOW YELLOW Urine Appearance CLEAR CLEAR Urine pH 7.0 5.0-8.0 Urine Specific [place] 1.044 H 1.001-1.031 Urine Protein NEGATIVE NEGATIVE mg/dL Urine Glucose (UA) 30 H NEGATIVE mg/dL Urine Ketones NEGATIVE NEGATIVE mg/dL Urine Occult Blood NEGATIVE NEGATIVE Urine Nitrate NEGATIVE NEGATIVE Urine Bilirubin NEGATIVE NEGATIVE mg/dL Urine Urobilinogen 4.0 H 0.2-1.0 mg/dL Urine Leukocyte Esterase NEGATIVE NEGATIVE Devi/uL Urine RBC 2-5 H 0-1 /HPF Urine WBC 0-1 0-1 /HPF Urine Bacteria None None Seen /HPF Test 10/30/24 03:22 Range/Units Albumin 1.8 L 3.5-5.0 g/dL ASSESSMENT: Community-acquired pneumonia. Right hydropneumothorax, status post thoracotomy and chest tube placement in ER, status post removal on 10/29/2024. Large right pleural effusion. Morbid obesity. Diabetes mellitus. Tobacco use. PLAN: Continue vancomycin per pharmacy protocol. Continue azithromycin IV. Continue cefepime. Continue oxygen support. Continue GI prophylaxis. Patient to undergo a chest tube placement by the Pulmonary team possibly today. This case was reviewed and discussed with my supervising physician and the above assessment and plan was formulated and agreed upon. ATTESTATION BY PHYSICIAN I have seen and examined the patient. I reviewed the documentation, medical decision making, and treatment plan as noted by the mid-level provider above. I agree with the findings and plan of care. TRISHA PARK MD, [facility] Oct 31, 2024 20:45
[2024-11-01] VITALS (11 sets, daily range): BP systolic 97–130; BP diastolic 59–99; PULSE 72–99; RESP 16–22; TEMP 97.8–99.5; O2SAT 94–98
[2024-11-01 04:44] LABS: IMMATURE GRANULOCYTE ABSOLUTE 0.10 K/uL (0-1); NUCLEATED RED BLOOD CELLS 0.0 % (0.0-0.19); PLATELET COUNT (AUTO) 243 K/uL (130-400); RED BLOOD CELL COUNT(AUTO) 3.70 MIL/uL (4.50-6.20); RED CELL DISTRIBUTION WIDTH 12.0 % (11.0-15.5); WHITE BLOOD COUNT (AUTO) 8.9 K/uL (4.8-10.8)
[2024-11-01 05:02] LABS: ASPARTATE AMINOTRANSFERASE 33.0 U/L (10-37); CREATININE 0.6 mg/dL (0.5-1.3); GLOMERULAR FILTR. RATE CALC 115.0 mL/min (>90); GLUCOSE,RANDOM 134.0 mg/dL (70-105); SODIUM SERUM 136.0 mmol/L (136-145); TOTAL PROTEIN, SERUM 6.7 g/dL (6.0-8.3); UREA NITROGEN, BLOOD 8.0 mg/dL (7-18)
--- NOTE | 2024-11-01 08:30 | HMCIMG ---
EXAM: CR Chest, 1 view CLINICAL HISTORY: Chest tube. COMPARISON: Chest radiograph dated 10/30/2024. FINDINGS: Redemonstrated large right pleural effusion with compressive atelectasis and consolidation in the underlying right lung. Stable cardiac size. The left lung is clear. No pneumothorax. No acute osseous abnormality. IMPRESSION: Redemonstrated large right pleural effusion with compressive atelectasis and consolidation in the underlying right lung. No gross interval changes. /[place]
--- NOTE | 2024-11-01 13:46 | PN ---
[facility] PROGRESS NOTE Date of Service: Nov 01, 2024 Time of Service: 13:21 SUBJECTIVE: 53-year-old male with history of significant tobacco use disorder (40 pack year smoking history) presented to the ER with a chief complaint of shortness of breath and chest pain for 3 days which is progressive. Chest pain is worsened with deep inspiration and cough. He denied with a history of fever , cough with sputum production. He mentioned that he has been losing his weight for last1 year but his appetite is good. Reported the long history of smoking, I started at the age of 12-13 years of old but denied any alcohol use. He has not visited to any chemical pathologist before due to any respiratory issues. On presentation to the hospital, patient was noted to have T-max of 99.9 F, heart rate of 103, blood pressure of 143/80. Chest x-ray showed findings of [id number] right-sided pneumothorax. Twelve [place] pigtail catheter was placed in the ER relief of pneumothorax. CT chest without contrast was performed which showed findings of right-sided hydropneumothorax with right lower lobe consolidative pneumonia. He was admitted for further management. He is started on Zosyn, vancomycin and azithromycin. Pulmonology and Infectious Disease are consulted for further workup. 10/29/2024-the patient was evaluated this morning bedside. He did not complain of any acute event overnight. He feels his breathing is better now. He is hemodynamically stable and is on 2 L of oxygen. Pertinent labs for hemoglobin 11.4, ESR 122, random blood glucose 257, HbA1c 11.5. Calcium 8.5, CRP 157, albumin 2, LDH serum is 144. 225 ML of pleural fluid drained and lab result revealed LDH 1628, protein 4.7. According to light's criteria, pleural fluid seems to be exudative. MRSA screening for nasal swab was positive. On vancomycin Zosyn and azithromycin. Pulmonology at ID on the board. For newly diagnosed diabetes mellitus with HBA1c 11.5, endocrinology is consulted. 10/30/2024-the patient was evaluated this morning bedside. He did not complain of any acute event overnight. He feels his breathing is better now. He is hemodynamically stable and is on 2 L of oxygen. Pertinent labs for hemoglobin 11.7, ESR 122, random blood glucose 168, HbA1c 11.5. Corrected Calcium 9.2, CRP 157, albumin 1.8 On vancomycin, cefepime and azithromycin. Repeat chest CT on October 29 showed large right pleural effusion which increased compared to prior CT chest. Pulmonology and ID on the board. Diabetes mellitus with HBA1c 11.5. Endocrinology started Lantus 15 units daily, regular insulin 5 units t.i.d. and medium dose sliding scale insulin. 10/31/2024-the patient was evaluated this morning bedside. He did not complain of any acute event overnight. He feels his breathing is better now. He is hemodynamically stable and is on 2 L of oxygen. Pertinent labs for hemoglobin 10.9, ESR 122, random blood glucose 132, HbA1c 11.5. CRP 157, albumin 1.8 On vancomycin, cefepime and azithromycin. Repeat chest CT on October 29 showed large right pleural effusion which increased compared to prior CT chest. Echocardi ogram revealed ejection fraction more than 55%. Pulmonology and ID on the board. With the concern of right diaphragm paralysis sniff test was ordered, which was not commented on report because of large pleural effusion. Diabetes mellitus with HBA1c 11.5. Endocrinology started Lantus 15 units daily, regular insulin 5 units t.i.d. and medium dose sliding scale insulin. 11/01/2024-the patient was evaluated this morning bedside. He did not complain of any acute event overnight. He feels his breathing is better now. He is hemodynamically stable. Pertinent labs for hemoglobin 11.7, ESR 122, random blood glucose 134, HbA1c 11.5. CRP 157, albumin 1.8 On vancomycin, cefepime and azithromycin. Repeat chest CT on October 29 showed large right pleural effusion which increased compared to prior CT chest. Echocardiogram revealed ejection fraction more than 55%. Pulmonology and ID on the board. With the concern of right diaphragm paralysis sniff test was ordered, which was not competed because of large pleural effusion. Diabetes mellitus with HBA1c 11.5. Endocrinology started Lantus 15 units daily, regular insulin 5 units t.i.d. and medium dose sliding scale insulin. Further Plan of management as discussed below. REVIEW OF SYSTEMS CONSTITUTIONAL: malaise, fatigue NEUROLOGICAL: Denies headache, amaurosis fugax, motor weakness, sensory deficit ENT: No hearing loss, otalgia, rhinitis CARDIOVASCULAR: Denies any exertional angina, dyspnea on exertion PULMONARY: SOB, pleurisy SLEEP: Denies morning headaches, daytime somnolence or napping. Denies difficulty falling asleep, staying asleep, waking from sleep. Denies knowledge of snoring. GASTROINTESTINAL: Denies any type of dysphagia nausea, vomiting, abdominal pain, diarrhea, constipation GENITOURINARY: Denies frequency, urgency ENDOCRINOLOGIC: Denies polyuria, polydipsia, polyphagia HEMATOLOGIC: Denies thrombophilia/previous clots, or coagulopathy/bleeding disorders. ONCOLOGIC: Denies personal history of malignancy. DERMATOLOGIC: Denies rashes or pruritus. PSYCHIATRIC: Denies any suicidal or homicidal ideation. PHYSICAL EXAM GENERAL APPEARANCE: The patient is awake, alert, and oriented, in no acute cardiopulmonary distress. NEUROLOGICAL: Cranial nerves II-XII grossly intact. Motor is 5/5 in bilateral upper and lower extremities proximal to distal. No sensory deficits. HEENT: Face is symmetric. Pupils are equal and reactive. Extraocular movements are intact. NECK: Supple. No JVD. No thyromegaly. No submental, submandibular, pre- /postauricular, occipital or supraclavicular lymphadenopathy. CHEST: Normal chest expansion. No Telemetry. LUNGS: Decreased breath sound of the right lung base with crackles noted CARDIOVASCULAR: Regular. S1 and S2 normal. No appreciable rubs, murmurs or gallops. ABDOMEN: Soft, nontender, and nondistended. There is no rebound, voluntary guarding, or rigidity. : Deferred. No [place]. EXTREMITIES: Non-edematous and not cyanotic. No clubbing. Good capillary refill. SKIN: No skin breakdown. Vital Signs (last 8hr) Date Time Temp Pulse Resp B/P (MAP) Pulse Ox O2 Delivery O2 Flow Rate FiO2 11/01/24 12:00 98.1 90 18 107/59 100 Room Air 11/01/24 08:00 97.9 72 16 103/64 98 Room Air 11/01/24 08:00 98 Room Air* 0 21 11/01/24 06:48 82 18 11/01/24 06:46 82 18 N/A Room Air 21 LABS: Laboratory: Test 11/01/24 11:39 11/01/24 04:34 10/31/24 15:39 10/31/24 03:23 Range/Units Whole Blood Glucose 226 #H 70-110 MG/DL White Blood Count 8.9 4.8-10.8 K/uL Red Blood Count 3.70 L 4.50-6.20 MIL/uL Hemoglobin 11.7 L 14.0-18.0 g/dL Hematocrit 33.9 L 42-54 % Mean Corpuscular Volume 91.6 79-99 fL Mean Corpuscular Hemoglobin 31.6 27.0-33.0 pg Mean Corpuscular Hemoglobin Concent 34.5 32.0-36.0 g/dL Red Cell Distribution Width 12.0 11.0-15.5 % Platelet Count 243 # 130-400 K/uL Mean Platelet Volume 10.5 7.5-10.5 fL Immature Granulocyte % (Auto) 1.1 H 0-1 % Neutrophils (%) (Auto) 61.8 40.0-77.0 % Lymphocytes (%) (Auto) 22.6 21.0-51.0 % Monocytes (%) (Auto) 10.5 3.0-13.0 % Eosinophils (%) (Auto) 3.7 0.0-8.0 % Basophils (%) (Auto) 0.3 0.0-5.0 % Neutrophils # (Auto) 5.5 1.8-7.7 K/uL Lymphocytes # (Auto) 2.0 1.0-4.8 K/uL Monocytes # (Auto) 0.9 0.1-1.0 K/uL Eosinophils # (Auto) 0.33 0.00-0.70 K/uL Basophils # (Auto) 0.03 0.00-0.20 K/uL Absolute Immature Granulocyte (auto 0.10 0-1 K/uL Nucleated Red Blood Cells 0.0 0.0-0.19 % Sodium Level 136 136-145 mmol/L Potassium Level 3.2 L 3.5-5.1 mmol/L Chloride Level 102 101-111 mmol/L Carbon Dioxide Level 29 21-32 mmol/L Blood Urea Nitrogen 8 7-18 mg/dL Creatinine 0.6 0.5-1.3 mg/dL Glomerular Filtration Rate Calc 115 >90 mL/min Random Glucose 134 H 70-105 mg/dL Total Calcium 7.9 L 8.5-10.1 mg/dL Total Bilirubin 0.8 0.2-1.0 mg/dL Aspartate Amino Transf (AST/SGOT) 33 10-37 U/L Alanine Aminotransferase (ALT/SGPT) 75 12-78 U/L Alkaline Phosphatase 145 H 50-136 U/L Total Protein 6.7 6.0-8.3 g/dL Albumin 1.8 L 3.5-5.0 g/dL Vancomycin Level Trough 2.7 L 10.0-20.0 UG/ML Magnesium Level 1.90 1.80-2.40 mg/dL Procalcitonin 0.11 0.05-0.5 ng/mL Test 10/30/24 17:50 Range/Units Urine Color LIGHT-YELLOW YELLOW Urine Appearance CLEAR CLEAR Urine pH 7.0 5.0-8.0 Urine Specific [place] 1.044 H 1.001-1.031 Urine Protein NEGATIVE NEGATIVE mg/dL Urine Glucose (UA) 30 H NEGATIVE mg/dL Urine Ketones NEGATIVE NEGATIVE mg/dL Urine Occult Blood NEGATIVE NEGATIVE Urine Nitrate NEGATIVE NEGATIVE Urine Bilirubin NEGATIVE NEGATIVE mg/dL Urine Urobilinogen 4.0 H 0.2-1.0 mg/dL Urine Leukocyte Esterase NEGATIVE NEGATIVE Devi/uL Urine RBC 2-5 H 0-1 /HPF Urine WBC 0-1 0-1 /HPF Urine Bacteria None None Seen /HPF Current Medications Medications (Trade) Dose Ordered Sig/Estela Route PRN Reason Start Time Stop Time Status Last Admin Dose Admin Acetaminophen (TYLenol 325MG TAB) 650 mg Q6H PRN PO MILD PAIN (1-3) 10/28/24 09:00 11/27/24 08:59 11/01/24 02:13 650 MG Albuterol (DUOneb) 1 udvial Q6H PRN IH SHORTNESS OF BREATH 10/28/24 09:00 11/27/24 08:59 Azithromycin 250 ml @ 250 mls/hr Q24H IVPB 10/28/24 09:00 11/07/24 08:59 11/01/24 09:00 250 MLS/HR Budesonide (Pulmicort 0.5 Mg/2ml) 0.5 mg BIDRESP IH 10/28/24 18:00 11/27/24 17:59 11/01/24 06:48 0.5 MG Cefepime HCl (MAXipime 2 gm vial) 2 gm Q12H IVPB 10/28/24 18:00 11/07/24 17:59 11/01/24 05:25 2 GM Famotidine (Pepcid 20mg Vial) 20 mg BID IV 10/28/24 09:00 11/27/24 08:59 11/01/24 09:03 20 MG Guaifenesin/ Dextromethorphan (RobiTUSSin DM 200/20MG 10ML) 10 ml Q6H PRN PO COUGH 10/28/24 09:00 11/27/24 08:59 Hydromorphone HCl (DiLAUDid 0.5MG INJ) 0.5 mg Q4H PRN IVP SEVERE PAIN (7-10) 10/28/24 09:00 11/02/24 08:59 10/31/24 14:37 0.5 MG Insulin Glargine (LANtus 100 UNITS/ML 10 ML VIAL) 12 units HS SQ 10/28/24 21:00 10/28/24 17:00 DC Insulin Glargine (LANtus 100 UNITS/ML 10 ML VIAL) 15 units HS SQ 10/28/24 21:00 11/27/24 20:59 10/31/24 21:00 15 UNITS Insulin Human Regular (humuLIN R 100 UNIT/ML 3ML) 5 unit TIDAC SQ 10/30/24 07:30 11/29/24 07:29 11/01/24 12:21 5 UNIT Insulin Human Regular (humuLIN R 100 UNIT/ML 3ML) INSULIN SLIDING SCAL... ACHS SQ 10/28/24 11:30 10/29/24 07:42 DC 10/29/24 06:27 4 UNIT Insulin Human Regular (humuLIN R 100 UNIT/ML 3ML) INSULIN SLIDING SCAL... ACHS SQ 10/29/24 11:30 10/29/24 22:09 DC 10/29/24 20:52 4 UNIT Insulin Human Regular (humuLIN R 100 UNIT/ML 3ML) INSULIN SLIDING SCAL... ACHS SQ 10/30/24 07:30 11/29/24 07:29 11/01/24 12:21 6 UNIT Ketorolac Tromethamine (toRADol) 15 mg Q12H PRN IV MODERATE PAIN (4-6) 10/28/24 09:00 10/30/24 09:00 DC 10/29/24 18:28 15 MG Magnesium Sulfate 50 ml @ 0 mls/hr PROTOCOL PRN IV low magnesium 10/30/24 05:30 11/29/24 05:29 10/30/24 05:57 25 MLS/HR Nicotine (Nicoderm) 14 mg DAILY TD 10/29/24 09:00 11/28/24 08:59 11/01/24 09:04 14 MG Ondansetron HCl (zoFRAN 4MG INJ) 4 mg Q6H PRN IVP NAUSEA/VOMITING 10/28/24 09:00 11/27/24 08:59 Potassium Chloride 100 ml @ 100 mls/hr AD PRN IV POTASSIUM PROTOCOL 10/30/24 05:30 11/29/24 05:29 10/30/24 17:53 100 MLS/HR Potassium Chloride (K-Dur/Klor-Con 20meq) 20 meq AD PRN PO POTASSIUM PROTOCOL 10/30/24 05:30 11/29/24 05:29 11/01/24 09:03 20 MEQ Potassium Chloride (KCl 10% Elixir 20meq/15ml) 20 meq AD PRN PO POTASSIUM PROTOCOL 10/30/24 05:30 11/29/24 05:29 10/31/24 17:51 20 MEQ Sodium Chloride 1,000 ml @ 100 mls/hr Q10H IV 10/28/24 09:00 10/29/24 10:34 DC 10/29/24 00:45 100 MLS/HR Thiamine HCl (Vitamin B-1) 100 mg Q24H IVP 10/28/24 09:00 11/27/24 08:59 11/01/24 09:03 100 MG Vancomycin HCl 250 ml @ 125 mls/hr Q12H IV 10/29/24 01:00 10/30/24 12:56 DC 10/30/24 00:44 125 MLS/HR Vancomycin HCl 250 ml @ 125 mls/hr Q6H IV 10/31/24 17:30 11/10/24 00:59 11/01/24 12:17 125 MLS/HR Vancomycin HCl 250 ml @ 125 mls/hr Q8H IV 10/31/24 01:00 10/31/24 17:06 DC 10/31/24 10:18 125 MLS/HR Vancomycin HCl (Vancomycin Protocol) 1 each AD IV 10/28/24 11:00 11/11/24 10:59 DIAGNOSTICS / RADIOLOGY: [ ] ASSESSMENT: Right lower lobe consolidative pneumonia, POA Moderate to large right-sided pneumothorax status post chest tube placement POA Right-sided hydropneumothorax, POA Acute hypoxic respiratory failure POA Newly diagnosed diabetes mellitus, POA Rule out chronic COPD of the lungs, POA Anemia POA Tobacco use disorder long-term smoking history, POA Hypokalemia Hypomagnesemia PLAN: Right lower lobe consolidative pneumonia, POA Moderate to large right-sided pneumothorax status post chest tube placement POA Right-sided hydropneumothorax, POA Acute hypoxic respiratory failure POA(resolving) -On admission chest x-ray revealed [id number] right-sided pneumothorax, 2 [place] pigtail was placed. Post tube placement, CT chest revealed right-sided hydropneumothorax with collapse consolidation. The hydropneumothorax may be secondary to pneumonia. CRP 157, procalcitonin 0.39, ESR 122, pleural fluid LDL is 1628 pleural fluid protein 4.7. Pleural effusion seems to be exudative of was in nature as per light's criteria. Repeat chest CT on 0 10/29/24 revealed large right-sided pleural effusion. Echocardiogram on 10/31/2024 . Ejection fraction more than 55%. Chest fluoroscopy done was unable to report on right hemidiaphragm due to large right-sided pleural effusion. CT abdomen pelvis revealed no concerning finding. -empirically started on cefepime, vancomycin and azithromycin. -oxygen supplementation for O2 saturation above 92 per -continue on chest tube management -pleural fluid drained was sent for the labs including culture and Gram staining. -started on Pulmicort q.12 hours and duo nebs q.6 hours PRN. Toradol for pain PRN -Possible bronchoscopy as per pulmonology -We will get echo , QuantiFERON test, urinalysis, urine protein creatinine ratio -we will put chest tube to get the pleural fluid out. -pulmonology and Infectious Disease consulted. We will follow the recommendations. -we will monitor clinical improvement along with interval chest x-ray and repeat labs. Newly diagnosed diabetes mellitus, POA -HGB A1c 11.5, blood glucose 134 -as per Endocrinology started on Euqlia13 units, regular insulin5 units t.i.d. and medium dose SSI -we will monitor blood glucose closely. Hypokalemia Hypomagnesemia -Potassium 3.2, Magnesium 1.9 -We will monitor and replete it Tobacco use disorder long-term smoking history, POA -long history of extensive smoking, pack year 40 -placed on nicotine patch -we will encourage patient for smoking cessation -we will monitor signs of withdrawal. Anemia -hemoglobin this morning 11.7, iron 29, TIBC 191, saturation 15.1, ferritin 3282 -we will get stool FOBT -we will monitor hemoglobin. Rule out chronic COPD of the lungs, POA -long history of extensive smoking with pack year 40, patient may have COPD with some degree of shortness of breath at baseline -started on Pulmicort q.12 hours and duo nebs q.6 hours PRN we will for SOB as well -need to get pulmonology function test at some point of time to rule out COPD. GI prophylaxis: Famotidine DVT prophylaxis: SCD Status: Full code ATTESTATION BY PHYSICIAN I have seen and examined the patient. I reviewed the documentation, medical decision making, and treatment plan as noted by the resident provider above. I agree with the findings and plan of care. Arnaldo Deras MD, SUNIL MD Nov 01, 2024 13:46
--- NOTE | 2024-11-01 16:33 | HMCIMG ---
CHEST 1VW REASON: PNA COMPARISON: Prior chest radiograph from 10/31/2024 is available.. FINDINGS: Single view of the chest was obtained. Lungs demonstrate a large right-sided pleural effusion unchanged from prior study. The left lung is clear.. Heart size is normal. There is no pulmonary vascular congestion. Mediastinum and bony thorax appear unremarkable. IMPRESSION: 1. Unchanged from prior study with large right-sided pleural effusion which is amenable to thoracentesis. 2. The left lung appears to be clear.
--- NOTE | 2024-11-01 17:45 | PN ---
INFECTIOUS DISEASE PROGRESS NOTE Date of Service: Nov 01, 2024 SUBJECTIVE: Patient was seen and examined at bedside in room 220. Patient is awake, alert and oriented. Per report a chest tube placement was attempted yesterday but unsuccessful and will possibly be re-attempted today by the Pulmonary Care team. No dyspnea observe and patient is now on room air and saturating 95-98%. No fever, temperature is 97.9. We will continue on vancomycin and cefepime. We will continue to follow patient's care. PHYSICAL EXAM EYES: Anicteric. Pupils equal and reactive. HENT: No oral thrush seen, moist Oral mucosa NECK: Supple, no JVD or thyromegaly. LUNGS: No rales, no rhonchi. Diminished breath sounds. CARDIOVASCULAR: S1, S2 regular. No murmur heard. ABDOMEN: Soft, non tender, bowel sounds present, no organomegaly CENTRAL NERVOUS SYSTEM: Awake, alert, oriented x 3. . SKIN: No rashes, no swelling. LYMPHATICS: No peripheral lymphadenopathy MUSCULOSKELETAL: No joint swelling, erythema or tenderness. EXTREMITIES: No cyanosis or clubbing. BACK: No deformity, no pressure ulcer. GENITOURINARY: No dysuria or hematuria. Vital Sign (Last 12 Hours) 11/01/24 11/01/24 11/01/24 11/01/24 06:46 06:48 08:00 08:00 Temp 97.9 Pulse 82 82 72 Resp 18 18 16 B/P (MAP) 103/64 Pulse Ox 98 98 O2 Delivery N/A Room Air Room Air* Room Air O2 Flow Rate 0 FiO2 21 21 11/01/24 12:00 Temp 98.1 Pulse 90 Resp 18 B/P (MAP) 107/59 Pulse Ox 100 O2 Delivery Room Air Intake & Output (last 24hrs) 10/31/24 10/31/24 11/01/24 15:00 23:00 07:00 Intake Total 1750.0 ml 250.0 ml Output Total 1300 ml 475 ml Balance 450.0 ml -225.0 ml LABS: Laboratory: Test 11/01/24 16:08 11/01/24 04:34 10/31/24 15:39 10/31/24 03:23 Range/Units Whole Blood Glucose 192 H 70-110 MG/DL White Blood Count 8.9 4.8-10.8 K/uL Red Blood Count 3.70 L 4.50-6.20 MIL/uL Hemoglobin 11.7 L 14.0-18.0 g/dL Hematocrit 33.9 L 42-54 % Mean Corpuscular Volume 91.6 79-99 fL Mean Corpuscular Hemoglobin 31.6 27.0-33.0 pg Mean Corpuscular Hemoglobin Concent 34.5 32.0-36.0 g/dL Red Cell Distribution Width 12.0 11.0-15.5 % Platelet Count 243 # 130-400 K/uL Mean Platelet Volume 10.5 7.5-10.5 fL Immature Granulocyte % (Auto) 1.1 H 0-1 % Neutrophils (%) (Auto) 61.8 40.0-77.0 % Lymphocytes (%) (Auto) 22.6 21.0-51.0 % Monocytes (%) (Auto) 10.5 3.0-13.0 % Eosinophils (%) (Auto) 3.7 0.0-8.0 % Basophils (%) (Auto) 0.3 0.0-5.0 % Neutrophils # (Auto) 5.5 1.8-7.7 K/uL Lymphocytes # (Auto) 2.0 1.0-4.8 K/uL Monocytes # (Auto) 0.9 0.1-1.0 K/uL Eosinophils # (Auto) 0.33 0.00-0.70 K/uL Basophils # (Auto) 0.03 0.00-0.20 K/uL Absolute Immature Granulocyte (auto 0.10 0-1 K/uL Nucleated Red Blood Cells 0.0 0.0-0.19 % Sodium Level 136 136-145 mmol/L Potassium Level 3.2 L 3.5-5.1 mmol/L Chloride Level 102 101-111 mmol/L Carbon Dioxide Level 29 21-32 mmol/L Blood Urea Nitrogen 8 7-18 mg/dL Creatinine 0.6 0.5-1.3 mg/dL Glomerular Filtration Rate Calc 115 >90 mL/min Random Glucose 134 H 70-105 mg/dL Total Calcium 7.9 L 8.5-10.1 mg/dL Total Bilirubin 0.8 0.2-1.0 mg/dL Aspartate Amino Transf (AST/SGOT) 33 10-37 U/L Alanine Aminotransferase (ALT/SGPT) 75 12-78 U/L Alkaline Phosphatase 145 H 50-136 U/L Total Protein 6.7 6.0-8.3 g/dL Albumin 1.8 L 3.5-5.0 g/dL Vancomycin Level Trough 2.7 L 10.0-20.0 UG/ML Magnesium Level 1.90 1.80-2.40 mg/dL Procalcitonin 0.11 0.05-0.5 ng/mL Test 10/30/24 17:50 Range/Units Urine Color LIGHT-YELLOW YELLOW Urine Appearance CLEAR CLEAR Urine pH 7.0 5.0-8.0 Urine Specific [place] 1.044 H 1.001-1.031 Urine Protein NEGATIVE NEGATIVE mg/dL Urine Glucose (UA) 30 H NEGATIVE mg/dL Urine Ketones NEGATIVE NEGATIVE mg/dL Urine Occult Blood NEGATIVE NEGATIVE Urine Nitrate NEGATIVE NEGATIVE Urine Bilirubin NEGATIVE NEGATIVE mg/dL Urine Urobilinogen 4.0 H 0.2-1.0 mg/dL Urine Leukocyte Esterase NEGATIVE NEGATIVE Devi/uL Urine RBC 2-5 H 0-1 /HPF Urine WBC 0-1 0-1 /HPF Urine Bacteria None None Seen /HPF ASSESSMENT: Community-acquired pneumonia. Right hydropneumothorax, status post thoracotomy and chest tube placement in ER, status post removal on 10/29/2024. Large right pleural effusion. Morbid obesity. Diabetes mellitus. Tobacco use. PLAN: Continue vancomycin per pharmacy protocol. Continue azithromycin IV. Continue cefepime. Oxygen support as needed. Continue GI prophylaxis. Chest tube placement possible to be reattempted today by the Pulmonary team. This case was reviewed and discussed with my supervising physician and the above assessment and plan was formulated and agreed upon. ATTESTATION BY PHYSICIAN I have seen and examined the patient. I reviewed the documentation, medical decision making, and treatment plan as noted by the mid-level provider above. I agree with the findings and plan of care. TRISHA PARK MD, [facility] Nov 01, 2024 17:45
--- NOTE | 2024-11-01 19:23 | PN ---
[facility] PROGRESS NOTE Date Patient Seen: Nov 01, 2024 Time of Visit: 19:09 Supervising Physician: Dr Tu Ramos Primary Care Physician: Self Referral Outpatient Specialists: None Inpatient Consults: Dr Preston CLARK MD Attending Physician: Dr. Finesse KENT PROBLEM LIST: Acute hypoxemic respiratory failure on admission Large hydro pneumothorax of the right lung Status post chest tube, now removed Large effusion to the right lung, not present on admission Suspected complicated parapneumonic effusion/empyema to the right lung Type 2 diabetes mellitus with hyperglycemia Tobacco use disorder Right lower lobe pneumonia Hypertension Morbid obesity, BMI 34 INTERVAL HISTORY: Patient seen and examined, resting comfortably. Labs and images reviewed. AO4 NO CP or SOB Goods sats on NC Tolerating Diet chest x-ray reviewed: large effusion to the right lung Plan: CM to assist in transfer to [facility] for EBUS RT, Supplemental O2 Dr. Ramos and Dr Kilpatrick disscussed case, plan is to [place] for [place] [facility] Tele Pulse Ox Daily labs, CXR Attending Updated. REVIEW OF SYSTEMS: Const: no fever, fatigue, + weight loss+ chills Eyes: no recent vision problems ENT: No congestion, ear pain, or sore throat C/V: no chest pain, palpitations or edema Resp: +No cough, congestion, wheezing , + Shortness of breath GI: No abdominal pain, nausea, vomiting, constipation, or diarrhea : No incontinence of or dyuria M/S: No joint or pain swelling Skin: No rash Neuro: no headache, focal numbness, or weakness, dizziness or seizures Psych: no depression or anxiety Heme: no abnormal bruising or bleeding Lymph: no swollen glands PHYSICAL EXAM: GENERAL: alert, weak, awake oriented x 3 HEENT: EOMI, Sclera non icteric, moist mucosa NECK: Supple, no JVD, trachea midline LUNGS: Diminished to right lower lobes clear lung sounds to the left. No wheezes, right chest tube in place HEART: Regular rate and rhythm. Normal S1 and S2, without murmurs ABD: Abdomen soft, nontender. Bowel sounds present EXT: No clubbing cyanosis or edema NEURO: Alert and oriented to person, follows commands Vital Signs (last 8hr) Date Time Temp Pulse Resp B/P (MAP) Pulse Ox O2 Delivery O2 Flow Rate FiO2 11/01/24 18:47 86 20 N/A Room Air 21 11/01/24 18:30 85 20 11/01/24 16:00 99.5 99 16 130/99 96 Room Air 11/01/24 12:00 98.1 90 18 107/59 100 Room Air LABS: Hematology Labs: Test 11/01/24 04:34 Range/Units White Blood Count 8.9 4.8-10.8 K/uL Red Blood Count 3.70 L 4.50-6.20 MIL/uL Hemoglobin 11.7 L 14.0-18.0 g/dL Hematocrit 33.9 L 42-54 % Mean Corpuscular Volume 91.6 79-99 fL Mean Corpuscular Hemoglobin 31.6 27.0-33.0 pg Mean Corpuscular Hemoglobin Concent 34.5 32.0-36.0 g/dL Red Cell Distribution Width 12.0 11.0-15.5 % Platelet Count 243 # 130-400 K/uL Mean Platelet Volume 10.5 7.5-10.5 fL Immature Granulocyte % (Auto) 1.1 H 0-1 % Neutrophils (%) (Auto) 61.8 40.0-77.0 % Lymphocytes (%) (Auto) 22.6 21.0-51.0 % Monocytes (%) (Auto) 10.5 3.0-13.0 % Eosinophils (%) (Auto) 3.7 0.0-8.0 % Basophils (%) (Auto) 0.3 0.0-5.0 % Neutrophils # (Auto) 5.5 1.8-7.7 K/uL Lymphocytes # (Auto) 2.0 1.0-4.8 K/uL Monocytes # (Auto) 0.9 0.1-1.0 K/uL Eosinophils # (Auto) 0.33 0.00-0.70 K/uL Basophils # (Auto) 0.03 0.00-0.20 K/uL Absolute Immature Granulocyte (auto 0.10 0-1 K/uL Nucleated Red Blood Cells 0.0 0.0-0.19 % Chemistry Labs: Test 11/01/24 16:08 11/01/24 04:34 10/31/24 03:23 Range/Units Whole Blood Glucose 192 H 70-110 MG/DL Sodium Level 136 136-145 mmol/L Potassium Level 3.2 L 3.5-5.1 mmol/L Chloride Level 102 101-111 mmol/L Carbon Dioxide Level 29 21-32 mmol/L Blood Urea Nitrogen 8 7-18 mg/dL Creatinine 0.6 0.5-1.3 mg/dL Glomerular Filtration Rate Calc 115 >90 mL/min Random Glucose 134 H 70-105 mg/dL Total Calcium 7.9 L 8.5-10.1 mg/dL Total Bilirubin 0.8 0.2-1.0 mg/dL Aspartate Amino Transf (AST/SGOT) 33 10-37 U/L Alanine Aminotransferase (ALT/SGPT) 75 12-78 U/L Alkaline Phosphatase 145 H 50-136 U/L Total Protein 6.7 6.0-8.3 g/dL Albumin 1.8 L 3.5-5.0 g/dL Magnesium Level 1.90 1.80-2.40 mg/dL Procalcitonin 0.11 0.05-0.5 ng/mL DIAGNOSTICS / RADIOLOGY RESULTS: [ ] PLAN NEURO: Minimize central acting medications as possible. Fall Precautions. Well lighted room through the day and minimize interruptions through the night to prevent acute delirium. PULMONARY: Supplemental 02 as needed Titrate Fio2 to keep Spo2 > or = 90% DuoNebs and CPT as needed IS hourly while awake for pulmonary hygiene Out of bed to chair as tolerated VAP Bundle Vent/BIPAP Settings: [ ] Driving pressure: [ ] P Plat: [ ] Static C: [ ] Static R: [ ] P/F Ratio: [ ] CARDIOVASCULAR: Follow hemodynamics. Titrate vasopressor to keep MAP >65 or systolic blood pressure >95mmHg DIPS: [ ] LINES: [ ] GI & NUTRITION: Continue nutritional support Aspirations precautions Prokinetic agents and laxatives as needed KIDNEYS & ELECTROLYTES: Strict monitoring of intake and output Daily weights Avoid nephrotoxic agents Monitor electrolytes and replace as needed Goal urine output of 30mL/hr or 0.5mL/kg/hr Urine output: [ ] Fluid Balance: [ ] ENDOCRINE: Maintain blood glucose between 100-180 at all times. Insulin sliding scale for blood glucose management INFECTIOUS DISEASE: Trend temperature. Treadwell-culture if febrile. Micro: [ ] Antibiotics: [ ] HEMATOLOGY & COAGULATION: Monitor H&H. Keep Hgb > 7 Transfuse 1 unit of PRBC for Hgb < 7 Transfuse 1 pack of platelets of platelets < 20, 000 Watch for any signs and symptoms of bleeding SKIN: Pressure ulcer prevention per facility protocol Rehab: PT/OT Prophylaxis: GI: [ ] DVT: [ ] Code Status: Full Resuscitation Disposition: [ ] Other: Total patient care time exceeds 35 minutes excluding all procedures. Case was discussed and seen with my supervising physician. The above plan was formulated and agreed upon. LINDSEY NASH Nov 01, 2024 19:23
--- NOTE | 2024-11-01 21:31 | PN ---
Endocrinology progress note DOS: 11/01/24 subjective: glucose are improving Home diabetic regimen: newly diagnosed diabetes Hba1c 11.6% REVIEW OF SYSTEMS CONSTITUTIONAL: malaise, fatigue NEUROLOGICAL: Denies headache, amaurosis fugax, motor weakness, sensory deficit, vertigo/spinning sensation, gait abnormalities, or tremors. ENT: No hearing loss, otalgia, otorrhea, rhinitis, rhinorrhea, hoarseness, or sore throat. CARDIOVASCULAR: Denies any exertional angina, dyspnea on exertion, orthopnea, paroxysmal nocturnal dyspnea, palpitations, life-threatening arrhythmias, claudication. PULMONARY: SOB, pleurisy SLEEP: Denies morning headaches, daytime somnolence or napping. Denies difficulty falling asleep, staying asleep, waking from sleep. Denies knowledge of snoring. GASTROINTESTINAL: Denies any type of dysphagia to either liquids or solids. Denies nausea, vomiting, pyrosis, early satiety, abdominal pain, diarrhea, constipation, or changes in stool consistency or caliber. Denies coffee-ground emesis, hematemesis, hematochezia, or melanotic stools. GENITOURINARY: Denies frequency, urgency, nocturia, hematuria or incontinence (Storage/Irritative symptoms.) Low urinary stream, straining to void, urinary intermittency or hesitancy, splitting of the voiding stream, terminal dribbling. ENDOCRINOLOGIC: Denies polyuria, polydipsia, polyphagia or heat/cold intolerances. HEMATOLOGIC: Denies thrombophilia/previous clots, or coagulopathy/bleeding disorders. ONCOLOGIC: Denies personal history of malignancy. DERMATOLOGIC: Denies rashes or pruritus. PSYCHIATRIC: Denies any suicidal or homicidal ideation. Denies hallucinations. PAST MEDICAL HISTORY: Tobacco use disorder PAST SURGICAL HISTORY: Denies history of major surgeries previously PAST SOCIAL HISTORY: Patient smokes about a pack a day for 40 years, drinks socially, denies any other illicit drug use FAMILY HISTORY: Denies history of major family history Allergies: No known drug allergies Coded Allergies: No Known Drug Allergies (Unverified Allergy, Unknown, 10/17/23) DIAGNOSTICS / RADIOLOGY: SERVICE 0824 REASON: SOB ORDERING PHYSICIAN: TUAN LOPEZ MD PROCEDURE: CHEST WO - CT CHEST W/O CONTRAST EXAM: CT Chest Without IV contrast. CLINICAL HISTORY: SOB TECHNIQUE: Axial computed tomography images of the chest without intravenous contrast. COMPARISON: None provided. FINDINGS: LUNGS: The chest tube enters through the lateral aspect of the 4th intercostal space, with its tip abutting the cardiac mediastinum, and subcutaneous emphysema is present along the track of the chest tube. Collapse consolidation of the right lung parenchyma predominantly in the right lower lobe. Dependent left basilar atelectasis. PLEURAL SPACES: Small hydropneumothorax. HEART: No cardiomegaly. No significant pericardial effusion. LYMPH NODES: No enlarged lymphadenopathy is evident. UPPER ABDOMEN: Isodense calculus with peripheral calcification measuring 1.6 cm in the gallbladder. BONES: Mild degenerative changes in the visualised spine. No acute osseous abnormality. IMPRESSION: 1. Right hydropneumothorax with chest tube in place 2. Right lower lobe collapse consolidation 3. Subcutaneous emphysema along chest tube track /[place] DICTATED BY: YOVANI BILLS Jr., MD DATE: 10/28/24 1142 ELECTRONICALLY SIGNED BY: YOVANI BILLS Jr., MD DATE: 10/28/24 1142 ASSESSMENT: Home diabetic regimen: newly diagnosed diabetes Hba1c 11.6% glucose are improving now. Moderate to large right-sided pneumothorax status post chest tube placement in the ER, 10/28/2024 Concern for complicated parapneumonic effusion/empyema with right-sided hydropneumothorax, POA Right lower lobe consolidative pneumonia, POA newly diagnosed poorly controlled two diabetes mellitus, POA Tobacco use disorder long-term smoking history, POA Rule out chronic COPD of the lungs, POA PLAN: continue lantus 15 units daily and adjust for fasting glucose. continue Regular insulin 5 units daily and adjust for post-prandial glucose. decrease ssi to medium dose sliding scale insulin. Monitor glucose q x 6 hourly. Continue carb consistent diet. Keep glucose less than 180 mg/dl. Patient will need lantus lantus 15 units daily and metformin 1000 mg bid at discharge. Vitals/Labs Vital Signs Date Time Temp Pulse Resp B/P (MAP) Pulse Ox O2 Delivery O2 Flow Rate FiO2 11/01/24 19:10 98.2 92 22 123/70 95 Room Air 11/01/24 18:47 21 11/01/24 08:00 0 Laboratory Tests 11/01/24 04:34 Medications Current Medications Ketorolac Tromethamine 30 mg ONCE ONCE IM Last administered on 10/28/24at 06:08; Start 10/28/24 at 06:00; Stop 10/28/24 at 06:01; Status DC Methylprednisolone Sodium Succinate 60 mg ONCE ONCE IVP Last administered on 10/28/24at 06:17; Start 10/28/24 at 06:30; Stop 10/28/24 at 06:31; Status DC Albuterol 1 UDVIAL ONCE ONCE IH Last administered on 10/28/24at 07:27; Start 10/28/24 at 06:30; Stop 10/28/24 at 06:31; Status DC Lidocaine HCl 20 ml STK-MED ONCE .ROUTE; Start 10/28/24 at 07:20; Stop 10/28/24 at 07:20; Status DC Fentanyl Citrate 100 mcg STK-MED ONCE .ROUTE; Start 10/28/24 at 07:24; Stop 10/28/24 at 07:25; Status DC Ceftriaxone Sodium 2 gm ONCE ONCE IVPB Last administered on 10/28/24at 08:47; Start 10/28/24 at 08:00; Stop 10/28/24 at 08:01; Status DC Sodium Chloride 1,000 ml @ 0 mls/hr ONCE ONCE IV Last administered on 10/28/24at 09:33; Start 10/28/24 at 08:00; Stop 10/28/24 at 08:01; Status DC Sodium Chloride 1,000 ml @ 100 mls/hr Q10H IV Last administered on 10/29/24at 00:45; Start 10/28/24 at 09:00; Stop 10/29/24 at 10:34; Status DC Acetaminophen 650 mg Q6H PRN PO Last administered on 11/01/24at 02:13; Start 10/28/24 at 09:00; Stop 11/27/24 at 08:59 Ondansetron HCl 4 mg Q6H PRN IVP; Start 10/28/24 at 09:00; Stop 11/27/24 at 08:59 Budesonide 0.5 mg BIDRESP IH Last administered on 11/01/24at 18:28; Start 10/28/24 at 18:00; Stop 11/27/24 at 17:59 Albuterol 1 udvial Q6H PRN IH; Start 10/28/24 at 09:00; Stop 11/27/24 at 08:59 Cefepime HCl 2 gm Q12H IVPB Last administered on 11/01/24at 17:12; Start 10/28/24 at 18:00; Stop 11/07/24 at 17:59 Azithromycin 250 ml @ 250 mls/hr Q24H IVPB Last administered on 11/01/24at 09:00; Start 10/28/24 at 09:00; Stop 11/07/24 at 08:59 Guaifenesin/ Dextromethorphan 10 ml Q6H PRN PO; Start 10/28/24 at 09:00; Stop 11/27/24 at 08:59 Insulin Human Regular INSULIN SLIDING SCAL... ACHS SQ Last administered on 10/29/24at 06:27; Start 10/28/24 at 11:30; Stop 10/29/24 at 07:42; Status DC Thiamine HCl 100 mg Q24H IVP Last administered on 11/01/24at 09:03; Start 10/28/24 at 09:00; Stop 11/27/24 at 08:59 Hydromorphone HCl 0.5 mg Q4H PRN IVP Last administered on 10/31/24at 14:37; Start 10/28/24 at 09:00; Stop 11/02/24 at 08:59 Ketorolac Tromethamine 15 mg Q12H PRN IV Last administered on 10/29/24at 18:28; Start 10/28/24 at 09:00; Stop 10/30/24 at 09:00; Status DC Famotidine 20 mg BID IV Last administered on 11/01/24at 21:27; Start 10/28/24 at 09:00; Stop 11/27/24 at 08:59 Fentanyl Citrate 100 mcg ONCE ONCE IVP Last administered on 10/28/24at 09:59; Start 10/28/24 at 10:00; Stop 10/28/24 at 10:01; Status DC Lidocaine HCl 10 ml ONCE ONCE INJ Last administered on 10/28/24at 09:58; Start 10/28/24 at 10:00; Stop 10/28/24 at 10:01; Status DC Vancomycin HCl 1 each AD IV; Start 10/28/24 at 11:00; Stop 11/11/24 at 10:59 Insulin Glargine 12 units HS SQ; Start 10/28/24 at 21:00; Stop 10/28/24 at 17:00; Status DC Vancomycin HCl 250 ml @ 125 mls/hr ONCE ONCE IV Last administered on 10/28/24at 13:18; Start 10/28/24 at 13:00; Stop 10/28/24 at 14:59; Status DC Vancomycin HCl 250 ml @ 125 mls/hr Q12H IV Last administered on 10/30/24at 00:44; Start 10/29/24 at 01:00; Stop 10/30/24 at 12:56; Status DC Nicotine 14 mg DAILY TD Last administered on 11/01/24at 09:04; Start 10/29/24 at 09:00; Stop 11/28/24 at 08:59 Insulin Glargine 15 units HS SQ Last administered on 11/01/24at 21:28; Start 10/28/24 at 21:00; Stop 11/27/24 at 20:59 Insulin Human Regular INSULIN SLIDING SCAL... ACHS SQ Last administered on 10/29/24at 20:52; Start 10/29/24 at 11:30; Stop 10/29/24 at 22:09; Status DC Insulin Human Regular 5 unit TIDAC SQ Last administered on 11/01/24at 17:17; Start 10/30/24 at 07:30; Stop 11/29/24 at 07:29 Insulin Human Regular INSULIN SLIDING SCAL... ACHS SQ Last administered on 11/01/24at 17:16; Start 10/30/24 at 07:30; Stop 11/29/24 at 07:29 Potassium Chloride 100 ml @ 100 mls/hr AD PRN IV Last administered on 10/30/24at 17:53; Start 10/30/24 at 05:30; Stop 11/29/24 at 05:29 Potassium Chloride 20 meq AD PRN PO Last administered on 10/31/24at 17:51; Start 10/30/24 at 05:30; Stop 11/29/24 at 05:29 Potassium Chloride 20 meq AD PRN PO Last administered on 11/01/24at 09:03; Start 10/30/24 at 05:30; Stop 11/29/24 at 05:29 Magnesium Sulfate 50 ml @ 0 mls/hr PROTOCOL PRN IV Last administered on 10/30/24at 05:57; Start 10/30/24 at 05:30; Stop 11/29/24 at 05:29 Vancomycin HCl 250 ml @ 125 mls/hr ONCE ONCE IV Last administered on 10/30/24at 17:15; Start 10/30/24 at 14:00; Stop 10/30/24 at 15:59; Status DC Vancomycin HCl 250 ml @ 125 mls/hr Q8H IV Last administered on 10/31/24at 10:18; Start 10/31/24 at 01:00; Stop 10/31/24 at 17:06; Status DC Lidocaine HCl 5 ml STK-MED ONCE .ROUTE Last administered on 10/30/24at 15:43; Start 10/30/24 at 14:16; Stop 10/30/24 at 14:16; Status DC Hydromorphone HCl 2 mg ONCE ONCE IVP; Start 10/30/24 at 15:00; Stop 10/30/24 at 15:01; Status DC Iohexol 35,000 mg STK-MED ONCE IV; Start 10/30/24 at 15:04; Stop 10/30/24 at 15:05; Status DC Iron Sucrose 300 mg ONCE ONCE IV; Start 10/31/24 at 13:30; Stop 10/31/24 at 13:33; Status DC Iron Sucrose 300 mg/Sodium Chloride 250 ml @ 83 mls/hr ONCE ONCE IV Last administered on 10/31/24at 20:39; Start 10/31/24 at 21:00; Stop 11/01/24 at 00:00; Status DC Hydromorphone HCl 0.5 mg STAT ONCE IVP; Start 10/31/24 at 15:00; Stop 10/31/24 at 15:01; Status DC Vancomycin HCl 250 ml @ 125 mls/hr Q6H IV Last administered on 11/01/24at 17:12; Start 10/31/24 at 17:30; Stop 11/10/24 at 00:59 SHUKRI ROBLES MD Nov 01, 2024 21:31
[2024-11-01] MEDS: MELATONIN 5 MG TABLET PO PRN (22:07)
[2024-11-02] VITALS (9 sets, daily range): BP systolic 113–130; BP diastolic 67–81; PULSE 67–96; RESP 18–20; TEMP 97.8–98.9; O2SAT 95–97
[2024-11-02 04:34] LABS: IMMATURE GRANULOCYTE ABSOLUTE 0.11 K/uL (0-1); NUCLEATED RED BLOOD CELLS 0.0 % (0.0-0.19); PLATELET COUNT (AUTO) 320 K/uL (130-400); RED BLOOD CELL COUNT(AUTO) 3.71 MIL/uL (4.50-6.20); RED CELL DISTRIBUTION WIDTH 12.1 % (11.0-15.5); WHITE BLOOD COUNT (AUTO) 8.6 K/uL (4.8-10.8)
[2024-11-02 04:53] LABS: ASPARTATE AMINOTRANSFERASE 30.0 U/L (10-37); CREATININE 0.8 mg/dL (0.5-1.3); GLOMERULAR FILTR. RATE CALC 106.0 mL/min (>90); GLUCOSE,RANDOM 190.0 mg/dL (70-105); SODIUM SERUM 134.0 mmol/L (136-145); TOTAL PROTEIN, SERUM 7.5 g/dL (6.0-8.3); UREA NITROGEN, BLOOD 9.0 mg/dL (7-18)
[2024-11-02 05:04] LABS: INR 1.07 (0.85-1.15)
--- NOTE | 2024-11-02 08:15 | NUR ---
TRANSFER REQUEST [place] [facility] [place]. TERA SWEET
--- NOTE | 2024-11-02 10:15 | HMCIMG ---
CHEST 1VW REASON: PNA COMPARISON: Prior chest radiograph from 11/01/2024 is available. FINDINGS: Single view of the chest was obtained. There is a large right-sided pleural effusion which is unchanged from prior study. The left lung appears to be clear.. Heart size is normal. There is no pulmonary vascular congestion. Mediastinum and bony thorax appear unremarkable. IMPRESSION: 1. Large right-sided pleural effusion unchanged from prior study. This is amenable for thoracentesis or placement of a chest tube. 2. The left lung appears to be clear.
--- NOTE | 2024-11-02 10:45 | NUR ---
TRANSFER FOLLOW UP WITH GI DIRECTOR REGARDING EQUIPMENT PER DIRECTOR HILARIA FIORE IS NOT AVAILABLE AND THE PT WILL HAVE TO BE TRANSFER OUT. TERA SIERRA
--- NOTE | 2024-11-02 12:15 | NUR ---
TRANSFER PA SPOKE WITH PT REGARDING TRANSFER AND PT VERBALIZED UNDERSTANDING . CONSENT SIGNED. TERA SWEET
--- NOTE | 2024-11-02 13:25 | NUR ---
TRANSFER CALL PLAC[place] [phone] SPOKE WITH PAULINE INFORMATION PROVIDED AND FAXED TO [phone]. WILL CALL BACK. TERA SWEET
--- NOTE | 2024-11-02 13:46 | PN ---
[facility] PROGRESS NOTE Date Patient Seen: Nov 02, 2024 Time of Visit: 13:44 Supervising Physician: Dr Ramos Primary Care Physician: Self Referral Outpatient Specialists: None Inpatient Consults: Dr Preston CLARK MD Attending Physician: Dr. Finesse KENT PROBLEM LIST: Acute hypoxemic respiratory failure on admission Large hydro pneumothorax of the right lung Status post chest tube, now removed Large effusion to the right lung, not present on admission Suspected complicated parapneumonic effusion/empyema to the right lung Type 2 diabetes mellitus with hyperglycemia Tobacco use disorder Right lower lobe pneumonia Hypertension Morbid obesity, BMI 34 INTERVAL HISTORY: Patient seen and examined, resting comfortably. Labs and images reviewed. AO4 NO CP or SOB Goods sats on NC Tolerating Diet chest x-ray reviewed: large effusion to the right lung Plan: to assist in transfer to [facility] for EBUS RT, Supplemental O2 Dr. Ramos and Dr Kilpatrick disscussed case, plan is to [place] for [place] which is [place] [facility] [place] Tele Pulse Ox Daily labs, CXR Wll need CT chest with upon arrival to [facility] REVIEW OF SYSTEMS: Const: no fever, fatigue, + weight loss+ chills Eyes: no recent vision problems ENT: No congestion, ear pain, or sore throat C/V: no chest pain, palpitations or edema Resp: +No cough, congestion, wheezing , + Shortness of breath GI: No abdominal pain, nausea, vomiting, constipation, or diarrhea : No incontinence of or dyuria M/S: No joint or pain swelling Skin: No rash Neuro: no headache, focal numbness, or weakness, dizziness or seizures Psych: no depression or anxiety Heme: no abnormal bruising or bleeding Lymph: no swollen glands PHYSICAL EXAM: GENERAL: alert, weak, awake oriented x 3 HEENT: EOMI, Sclera non icteric, moist mucosa NECK: Supple, no JVD, trachea midline LUNGS: Diminished to right lower lobes clear lung sounds to the left. No wheezes, right chest tube in place HEART: Regular rate and rhythm. Normal S1 and S2, without murmurs ABD: Abdomen soft, nontender. Bowel sounds present EXT: No clubbing cyanosis or edema NEURO: Alert and oriented to person, follows commands Vital Signs (last 8hr) Date Time Temp Pulse Resp B/P (MAP) Pulse Ox O2 Delivery O2 Flow Rate FiO2 11/02/24 12:09 97.9 87 18 130/81 96 Room Air 11/02/24 08:18 98.1 89 18 121/73 95 Room Air 11/02/24 07:30 95 Room Air* 0 21 11/02/24 07:12 81 18 11/02/24 07:12 81 18 N/A Room Air 21 LABS: Hematology Labs: Test 11/02/24 03:55 Range/Units White Blood Count 8.6 4.8-10.8 K/uL Red Blood Count 3.71 L 4.50-6.20 MIL/uL Hemoglobin 11.7 L 14.0-18.0 g/dL Hematocrit 34.5 L 42-54 % Mean Corpuscular Volume 93.0 79-99 fL Mean Corpuscular Hemoglobin 31.5 27.0-33.0 pg Mean Corpuscular Hemoglobin Concent 33.9 32.0-36.0 g/dL Red Cell Distribution Width 12.1 11.0-15.5 % Platelet Count 320 # 130-400 K/uL Mean Platelet Volume 10.6 H 7.5-10.5 fL Immature Granulocyte % (Auto) 1.3 H 0-1 % Neutrophils (%) (Auto) 55.8 40.0-77.0 % Lymphocytes (%) (Auto) 23.7 21.0-51.0 % Monocytes (%) (Auto) 12.4 3.0-13.0 % Eosinophils (%) (Auto) 6.3 0.0-8.0 % Basophils (%) (Auto) 0.5 0.0-5.0 % Neutrophils # (Auto) 4.8 1.8-7.7 K/uL Lymphocytes # (Auto) 2.0 1.0-4.8 K/uL Monocytes # (Auto) 1.1 H 0.1-1.0 K/uL Eosinophils # (Auto) 0.54 0.00-0.70 K/uL Basophils # (Auto) 0.04 0.00-0.20 K/uL Absolute Immature Granulocyte (auto 0.11 0-1 K/uL Nucleated Red Blood Cells 0.0 0.0-0.19 % Chemistry Labs: Test 11/02/24 12:27 11/02/24 03:55 Range/Units Whole Blood Glucose 163 H 70-110 MG/DL Sodium Level 134 L 136-145 mmol/L Potassium Level 3.5 3.5-5.1 mmol/L Chloride Level 99 L 101-111 mmol/L Carbon Dioxide Level 29 21-32 mmol/L Blood Urea Nitrogen 9 7-18 mg/dL Creatinine 0.8 0.5-1.3 mg/dL Glomerular Filtration Rate Calc 106 >90 mL/min Random Glucose 190 H 70-105 mg/dL Total Calcium 8.1 L 8.5-10.1 mg/dL Magnesium Level 1.90 1.80-2.40 mg/dL Total Bilirubin 0.7 0.2-1.0 mg/dL Aspartate Amino Transf (AST/SGOT) 30 10-37 U/L Alanine Aminotransferase (ALT/SGPT) 82 H 12-78 U/L Alkaline Phosphatase 170 H 50-136 U/L Total Protein 7.5 6.0-8.3 g/dL Albumin 2.0 L 3.5-5.0 g/dL Coagulation Labs: Test 11/02/24 03:55 Range/Units Prothrombin Time 11.3 9.6-11.6 SEC Prothromb Time International Ratio 1.07 0.85-1.15 Activated Partial Thromboplast Time 35.7 H 26.3-35.5 SEC DIAGNOSTICS / RADIOLOGY RESULTS: [ ] PLAN - Will proceed with chest tube placement to the right lung - Risks and benefits addressed - Risk of bleeding, lung puncture or recurrent thoracentesis - Patient is hypoxic on O2 and effusion is large; benefits outweigh the risks ORTHO/REHAB: Continue PT/OT Prophylaxis: Continue GI and DVT prophylaxis Code Status: Full Resuscitation Disposition: Per PCP LINDSEY NASH Nov 02, 2024 13:46
--- NOTE | 2024-11-02 13:51 | PN ---
[facility] PROGRESS NOTE Date of Service: Nov 02, 2024 Time of Service: 13:32 SUBJECTIVE: 53-year-old male with history of significant tobacco use disorder (40 pack year smoking history) presented to the ER with a chief complaint of shortness of breath and chest pain for 3 days which is progressive. Chest pain is worsened with deep inspiration and cough. He denied with a history of fever , cough with sputum production. He mentioned that he has been losing his weight for last1 year but his appetite is good. Reported the long history of smoking, I started at the age of 12-13 years of old but denied any alcohol use. He has not visited to any clerical assistant before due to any respiratory issues. On presentation to the hospital, patient was noted to have T-max of 99.9 F, heart rate of 103, blood pressure of 143/80. Chest x-ray showed findings of foimsbci-[id number]-roopa right-sided pneumothorax. Twelve Niuean pigtail catheter was placed in the ER relief of pneumothorax. CT chest without contrast was performed which showed findings of right-sided hydropneumothorax with right lower lobe consolidative pneumonia. He was admitted for further management. He is started on Zosyn, vancomycin and azithromycin. Pulmonology and Infectious Disease are consulted for further workup. 10/29/2024-the patient was evaluated this morning bedside. He did not complain of any acute event overnight. He feels his breathing is better now. He is hemodynamically stable and is on 2 L of oxygen. Pertinent labs for hemoglobin 11.4, ESR 122, random blood glucose 257, HbA1c 11.5. Calcium 8.5, CRP 157, albumin 2, LDH serum is 144. 225 ML of pleural fluid drained and lab result revealed LDH 1628, protein 4.7. According to light's criteria, pleural fluid seems to be exudative. MRSA screening for nasal swab was positive. On vancomycin Zosyn and azithromycin. Pulmonology at ID on the board. For newly diagnosed diabetes mellitus with HBA1c 11.5, endocrinology is consulted. 10/30/2024-the patient was evaluated this morning bedside. He did not complain of any acute event overnight. He feels his breathing is better now. He is hemodynamically stable and is on 2 L of oxygen. Pertinent labs for hemoglobin 11.7, ESR 122, random blood glucose 168, HbA1c 11.5. Corrected Calcium 9.2, CRP 157, albumin 1.8 On vancomycin, cefepime and azithromycin. Repeat chest CT on October 29 showed large right pleural effusion which increased compared to prior CT chest. Pulmonology and ID on the board. Diabetes mellitus with HBA1c 11.5. Endocrinology started Lantus 15 units daily, regular insulin 5 units t.i.d. and medium dose sliding scale insulin. 10/31/2024-the patient was evaluated this morning bedside. He did not complain of any acute event overnight. He feels his breathing is better now. He is hemodynamically stable and is on 2 L of oxygen. Pertinent labs for hemoglobin 10.9, ESR 122, random blood glucose 132, HbA1c 11.5. CRP 157, albumin 1.8 On vancomycin, cefepime and azithromycin. Repeat chest CT on October 29 showed large right pleural effusion which increased compared to prior CT chest. Echocardi ogram revealed ejection fraction more than 55%. Pulmonology and ID on the board. With the concern of right diaphragm paralysis sniff test was ordered, which was not commented on report because of large pleural effusion. Diabetes mellitus with HBA1c 11.5. Endocrinology started Lantus 15 units daily, regular insulin 5 units t.i.d. and medium dose sliding scale insulin. 11/01/2024-the patient was evaluated this morning bedside. He did not complain of any acute event overnight. He feels his breathing is better now. He is hemodynamically stable. Pertinent labs for hemoglobin 11.7, ESR 122, random blood glucose 134, HbA1c 11.5. CRP 157, albumin 1.8 On vancomycin, cefepime and azithromycin. Repeat chest CT on October 29 showed large right pleural effusion which increased compared to prior CT chest. Echocardiogram revealed ejection fraction more than 55%. Pulmonology and ID on the board. With the concern of right diaphragm paralysis sniff test was ordered, which was not competed because of large pleural effusion. Diabetes mellitus with HBA1c 11.5. Endocrinology started Lantus 15 units daily, regular insulin 5 units t.i.d. and medium dose sliding scale insulin. Further Plan of management as discussed below. 11/02/2024-the patient was evaluated this morning bedside. He did not complain of any acute event overnight. He is hemodynamically stable. Pertinent labs for hemoglobin 11.7, ESR 122, random blood glucose 163, HbA1c 11.5. CRP 157, albumin 1.8 On vancomycin, cefepime and azithromycin. Repeat chest CT on October 29 showed large right pleural effusion which increased compared to prior CT chest. Echocardiogram revealed ejection fraction more than 55%. Pulmonology and ID on the board. With the concern of right diaphragm paralysis sniff test was ordered, which was not competed because of large pleural effusion. Pulmonology recommends for EBUS. Diabetes mellitus with HbA1c 11.5. Endocrinology started Lantus 15 units daily, regular insulin 5 units t.i.d. and medium dose sliding scale insulin. Further Plan of management as discussed below. REVIEW OF SYSTEMS CONSTITUTIONAL: Denies fever, malaise NEUROLOGICAL: Denies headache, amaurosis fugax, motor weakness, sensory deficit ENT: No hearing loss, otalgia, rhinitis CARDIOVASCULAR: Denies any exertional angina, dyspnea on exertion PULMONARY: SOB, pleurisy SLEEP: Denies morning headaches, daytime somnolence or napping. Denies difficulty falling asleep, staying asleep, waking from sleep. Denies knowledge of snoring. GASTROINTESTINAL: Denies any type of dysphagia nausea, vomiting, abdominal pain, diarrhea, constipation GENITOURINARY: Denies frequency, urgency ENDOCRINOLOGIC: Denies polyuria, polydipsia, polyphagia HEMATOLOGIC: Denies thrombophilia/previous clots, or coagulopathy/bleeding disorders. ONCOLOGIC: Denies personal history of malignancy. DERMATOLOGIC: Denies rashes or pruritus. PSYCHIATRIC: Denies any suicidal or homicidal ideation. PHYSICAL EXAM GENERAL APPEARANCE: The patient is awake, alert, and oriented, in no acute cardiopulmonary distress. NEUROLOGICAL: Cranial nerves II-XII grossly intact. Motor is 5/5 in bilateral upper and lower extremities proximal to distal. No sensory deficits. HEENT: Face is symmetric. Pupils are equal and reactive. Extraocular movements are intact. NECK: Supple. No JVD. No thyromegaly. No submental, submandibular, pre- /postauricular, occipital or supraclavicular lymphadenopathy. CHEST: Normal chest expansion. No Telemetry. LUNGS: Decreased breath sounds on the right lung. CARDIOVASCULAR: Regular. S1 and S2 normal. No appreciable rubs, murmurs or gallops. ABDOMEN: Soft, nontender, and nondistended. There is no rebound, voluntary guarding, or rigidity. : Deferred. No [place]urtado. EXTREMITIES: Non-edematous and not cyanotic. No clubbing. Good capillary refill. SKIN: No skin breakdown. Vital Signs (last 8hr) Date Time Temp Pulse Resp B/P (MAP) Pulse Ox O2 Delivery O2 Flow Rate FiO2 11/02/24 12:09 97.9 87 18 130/81 96 Room Air 11/02/24 08:18 98.1 89 18 121/73 95 Room Air 11/02/24 07:30 95 Room Air* 0 21 11/02/24 07:12 81 18 11/02/24 07:12 81 18 N/A Room Air 21 LABS: Laboratory: Test 11/02/24 12:27 11/02/24 03:55 10/31/24 15:39 Range/Units Whole Blood Glucose 163 H 70-110 MG/DL White Blood Count 8.6 4.8-10.8 K/uL Red Blood Count 3.71 L 4.50-6.20 MIL/uL Hemoglobin 11.7 L 14.0-18.0 g/dL Hematocrit 34.5 L 42-54 % Mean Corpuscular Volume 93.0 79-99 fL Mean Corpuscular Hemoglobin 31.5 27.0-33.0 pg Mean Corpuscular Hemoglobin Concent 33.9 32.0-36.0 g/dL Red Cell Distribution Width 12.1 11.0-15.5 % Platelet Count 320 # 130-400 K/uL Mean Platelet Volume 10.6 H 7.5-10.5 fL Immature Granulocyte % (Auto) 1.3 H 0-1 % Neutrophils (%) (Auto) 55.8 40.0-77.0 % Lymphocytes (%) (Auto) 23.7 21.0-51.0 % Monocytes (%) (Auto) 12.4 3.0-13.0 % Eosinophils (%) (Auto) 6.3 0.0-8.0 % Basophils (%) (Auto) 0.5 0.0-5.0 % Neutrophils # (Auto) 4.8 1.8-7.7 K/uL Lymphocytes # (Auto) 2.0 1.0-4.8 K/uL Monocytes # (Auto) 1.1 H 0.1-1.0 K/uL Eosinophils # (Auto) 0.54 0.00-0.70 K/uL Basophils # (Auto) 0.04 0.00-0.20 K/uL Absolute Immature Granulocyte (auto 0.11 0-1 K/uL Nucleated Red Blood Cells 0.0 0.0-0.19 % Prothrombin Time 11.3 9.6-11.6 SEC Prothromb Time International Ratio 1.07 0.85-1.15 Activated Partial Thromboplast Time 35.7 H 26.3-35.5 SEC Sodium Level 134 L 136-145 mmol/L Potassium Level 3.5 3.5-5.1 mmol/L Chloride Level 99 L 101-111 mmol/L Carbon Dioxide Level 29 21-32 mmol/L Blood Urea Nitrogen 9 7-18 mg/dL Creatinine 0.8 0.5-1.3 mg/dL Glomerular Filtration Rate Calc 106 >90 mL/min Random Glucose 190 H 70-105 mg/dL Total Calcium 8.1 L 8.5-10.1 mg/dL Magnesium Level 1.90 1.80-2.40 mg/dL Total Bilirubin 0.7 0.2-1.0 mg/dL Aspartate Amino Transf (AST/SGOT) 30 10-37 U/L Alanine Aminotransferase (ALT/SGPT) 82 H 12-78 U/L Alkaline Phosphatase 170 H 50-136 U/L Total Protein 7.5 6.0-8.3 g/dL Albumin 2.0 L 3.5-5.0 g/dL Vancomycin Level Trough 2.7 L 10.0-20.0 UG/ML Current Medications Medications (Trade) Dose Ordered Sig/Estela Route PRN Reason Start Time Stop Time Status Last Admin Dose Admin Acetaminophen (TYLenol 325MG TAB) 650 mg Q6H PRN PO MILD PAIN (1-3) 10/28/24 09:00 11/27/24 08:59 11/01/24 02:13 650 MG Albuterol (DUOneb) 1 udvial Q6H PRN IH SHORTNESS OF BREATH 10/28/24 09:00 11/27/24 08:59 Azithromycin 250 ml @ 250 mls/hr Q24H IVPB 10/28/24 09:00 11/07/24 08:59 11/02/24 08:38 250 MLS/HR Budesonide (Pulmicort 0.5 Mg/2ml) 0.5 mg BIDRESP IH 10/28/24 18:00 11/27/24 17:59 11/02/24 07:10 0.5 MG Cefepime HCl (MAXipime 2 gm vial) 2 gm Q12H IVPB 10/28/24 18:00 11/07/24 17:59 11/02/24 05:02 2 GM Famotidine (Pepcid 20mg Vial) 20 mg BID IV 10/28/24 09:00 11/27/24 08:59 11/02/24 08:37 20 MG Guaifenesin/ Dextromethorphan (RobiTUSSin DM 200/20MG 10ML) 10 ml Q6H PRN PO COUGH 10/28/24 09:00 11/27/24 08:59 Hydromorphone HCl (DiLAUDid 0.5MG INJ) 0.5 mg Q4H PRN IVP SEVERE PAIN (7-10) 10/28/24 09:00 11/02/24 08:59 DC 10/31/24 14:37 0.5 MG Insulin Glargine (LANtus 100 UNITS/ML 10 ML VIAL) 12 units HS SQ 10/28/24 21:00 10/28/24 17:00 DC Insulin Glargine (LANtus 100 UNITS/ML 10 ML VIAL) 15 units HS SQ 10/28/24 21:00 11/27/24 20:59 11/01/24 21:28 15 UNITS Insulin Human Regular (humuLIN R 100 UNIT/ML 3ML) 5 unit TIDAC SQ 10/30/24 07:30 11/29/24 07:29 11/02/24 12:34 5 UNIT Insulin Human Regular (humuLIN R 100 UNIT/ML 3ML) INSULIN SLIDING SCAL... ACHS SQ 10/28/24 11:30 10/29/24 07:42 DC 10/29/24 06:27 4 UNIT Insulin Human Regular (humuLIN R 100 UNIT/ML 3ML) INSULIN SLIDING SCAL... ACHS SQ 10/29/24 11:30 10/29/24 22:09 DC 10/29/24 20:52 4 UNIT Insulin Human Regular (humuLIN R 100 UNIT/ML 3ML) INSULIN SLIDING SCAL... ACHS SQ 10/30/24 07:30 11/29/24 07:29 11/01/24 17:16 2 UNIT Ketorolac Tromethamine (toRADol) 15 mg Q12H PRN IV MODERATE PAIN (4-6) 10/28/24 09:00 10/30/24 09:00 DC 10/29/24 18:28 15 MG Magnesium Sulfate 50 ml @ 0 mls/hr PROTOCOL PRN IV low magnesium 10/30/24 05:30 11/29/24 05:29 11/02/24 08:38 25 MLS/HR Melatonin (Melatonin) 5 mg HSPRN PRN PO INSOMNIA/SLEEP 11/01/24 22:00 12/01/24 21:59 11/01/24 22:07 5 MG Nicotine (Nicoderm) 14 mg DAILY TD 10/29/24 09:00 11/28/24 08:59 11/02/24 08:39 14 MG Ondansetron HCl (zoFRAN 4MG INJ) 4 mg Q6H PRN IVP NAUSEA/VOMITING 10/28/24 09:00 11/27/24 08:59 Potassium Chloride 100 ml @ 100 mls/hr AD PRN IV POTASSIUM PROTOCOL 10/30/24 05:30 11/29/24 05:29 10/30/24 17:53 100 MLS/HR Potassium Chloride (K-Dur/Klor-Con 20meq) 20 meq AD PRN PO POTASSIUM PROTOCOL 10/30/24 05:30 11/29/24 05:29 11/02/24 08:37 20 MEQ Potassium Chloride (KCl 10% Elixir 20meq/15ml) 20 meq AD PRN PO POTASSIUM PROTOCOL 10/30/24 05:30 11/29/24 05:29 10/31/24 17:51 20 MEQ Sodium Chloride 1,000 ml @ 100 mls/hr Q10H IV 10/28/24 09:00 10/29/24 10:34 DC 10/29/24 00:45 100 MLS/HR Thiamine HCl (Vitamin B-1) 100 mg Q24H IVP 10/28/24 09:00 11/27/24 08:59 11/02/24 08:37 100 MG Vancomycin HCl 250 ml @ 125 mls/hr Q12H IV 10/29/24 01:00 10/30/24 12:56 DC 10/30/24 00:44 125 MLS/HR Vancomycin HCl 250 ml @ 125 mls/hr Q6H IV 10/31/24 17:30 11/10/24 00:59 11/02/24 12:33 125 MLS/HR Vancomycin HCl 250 ml @ 125 mls/hr Q8H IV 10/31/24 01:00 10/31/24 17:06 DC 10/31/24 10:18 125 MLS/HR Vancomycin HCl (Vancomycin Protocol) 1 each AD IV 10/28/24 11:00 11/11/24 10:59 DIAGNOSTICS / RADIOLOGY: PATIENT: CLAUDIA TELLO MR#: [id number] : 1970 SEX: M AGE: 53 LOCATION: 2DH ORDER 2300 STATUS: ADM IN REPORT#: [id number] SERVICE 0600 REASON: PNA ORDERING PHYSICIAN: LINDSEY NASH PROCEDURE: CXR1VW - CHEST 1VW CHEST 1VW REASON: PNA COMPARISON: Prior chest radiograph from 11/01/2024 is available. FINDINGS: Single view of the chest was obtained. There is a large right-sided pleural effusion which is unchanged from prior study. The left lung appears to be clear.. Heart size is normal. There is no pulmonary vascular congestion. Mediastinum and bony thorax appear unremarkable. IMPRESSION: 1. Large right-sided pleural effusion unchanged from prior study. This is amenable for thoracentesis or placement of a chest tube. 2. The left lung appears to be clear. DICTATED BY: FREDERICK KEYS MD DATE: 11/02/24 1012 ELECTRONICALLY SIGNED BY: FREDERICK KEYS MD DATE: 11/02/24 1015 ASSESSMENT: Right lower lobe consolidative pneumonia, POA Moderate to large right-sided pneumothorax status post chest tube placement POA Right-sided hydropneumothorax, POA Acute hypoxic respiratory failure POA Newly diagnosed diabetes mellitus, POA Rule out chronic COPD of the lungs, POA Anemia POA Tobacco use disorder long-term smoking history, POA Hypokalemia Hypomagnesemia PLAN: Right lower lobe consolidative pneumonia, POA Moderate to large right-sided pneumothorax status post chest tube placement POA Right-sided hydropneumothorax, POA Acute hypoxic respiratory failure POA, resolved -On admission chest x-ray revealed [id number] right-sided pneumothorax, 2 Niuean pigtail was placed. Post tube placement, CT chest revealed right-sided hydropneumothorax with collapse consolidation. The hydropneumothorax may be secondary to pneumonia. CRP 157, procalcitonin 0.39, ESR 122, pleural fluid LDL is 1628 pleural fluid protein 4.7. Pleural effusion seems to be exudative of was in nature as per light's criteria. Repeat chest CT on 0 10/29/24 revealed large right-sided pleural effusion. Echocardiogram on 10/31/2024 . Ejection fraction more than 55%. Chest fluoroscopy done was unable to report on right hemidiaphragm due to large right-sided pleural effusion. CT abdomen pelvis revealed no concerning finding. -Empirically started on cefepime, vancomycin and azithromycin. -Oxygen supplementation for O2 saturation above 92 per -Continue on chest tube management -Pleural fluid drained was sent for the labs including culture and Gram staining. -Started on Pulmicort q.12 hours and duo nebs q.6 hours PRN. Toradol for pain PRN -Possible bronchoscopy as per pulmonology -We will get echo , QuantiFERON test, urinalysis, urine protein creatinine ratio -We will put chest tube to get the pleural fluid out. -Pulmonology recommends EBUS for the patient. He needs to be transferred to [facility] for the EBUS. -Pulmonology and Infectious Disease consulted. We will follow the recommendations. -We will monitor clinical improvement along with interval chest x-ray and repeat labs. Newly diagnosed diabetes mellitus, POA -HGB A1c 11.5, blood glucose 163 -as per Endocrinology started on [id number] units, regular insulin5 units t.i.d. and medium dose SSI -we will monitor blood glucose closely. Hypokalemia Hypomagnesemia (treated) -Potassium 3.5, Magnesium 1.9 -We will monitor and replete it Tobacco use disorder long-term smoking history, POA -long history of extensive smoking, pack year 40 -placed on nicotine patch -we will encourage patient for smoking cessation -we will monitor signs of withdrawal. Anemia -hemoglobin this morning 11.7, iron 29, TIBC 191, saturation 15.1, ferritin 3282 -we will get stool FOBT -we will monitor hemoglobin. Rule out chronic COPD of the lungs, POA -long history of extensive smoking with pack year 40, patient may have COPD with some degree of shortness of breath at baseline -started on Pulmicort q.12 hours and duo nebs q.6 hours PRN we will for SOB as well -need to get pulmonology function test at some point of time to rule out COPD. GI prophylaxis: Famotidine DVT prophylaxis: SCD Status: Full code ATTESTATION BY PHYSICIAN I have seen and examined the patient. I reviewed the documentation, medical decision making, and treatment plan as noted by the resident provider above. I agree with the findings and plan of care. Arnaldo Deras MD, SUNIL MD Nov 02, 2024 13:51
--- NOTE | 2024-11-02 17:30 | NUR ---
TRANSFER FOLLOW WITH [facility] WHICH STATES STILL WORKING ON TRANSFER. TERA SWEET
--- NOTE | 2024-11-02 18:19 | NUR ---
TRANSFER CALL BACK WITH [facility] UNDER DOCTOR DEEPTI STEVENSON TO ROOM 1342 AND PRIMARY NURSE TO CALL REPORT TO [phone] AND EMS WHEN READY. TERA SWEET
[2024-11-02] MEDS: VANCOMYCIN 1G/250ML KIT 250 ML IV SCH (18:43)
--- NOTE | 2024-11-02 19:24 | NUR ---
REPORT GIVEN [place] [facility] [place] QUESTIONS ANSWERED.
--- NOTE | 2024-11-02 20:26 | NUR ---
EMS AT BEDSIDE IN ORDER TO TRANSF[place] [facility] [place] MEDICATIONS GIVEN, VITAL SIGNS STABLE, NO DISTRESS NOTED, AT ROOM AIR
--- NOTE | 2024-11-02 20:45 | PN ---
INFECTIOUS DISEASE FOLLOWUP NOTE DATE OF SERVICE: 11/02/2024 SUBJECTIVE: The patient is seen and examined at bedside today. The patient has no fever, no chills. No nausea, no vomiting. No abdominal pain. No bleeding tendency. No palpitation or orthopnea. No depression, no suicidal ideation. No heat or cold intolerance. No rashes or itchiness. PHYSICAL EXAMINATION: VITAL SIGNS: Temperature 96.2. EYES: No icterus. Pupils equal and reactive. HENT: No oral thrush seen. Moist oral mucosa. NECK: Supple. No JVD or thyromegaly. LUNGS: Good air entry. ____. CARDIOVASCULAR SYSTEM: S1 and S2 regular. No murmur heard. ABDOMEN: Obese, soft. Bowel sound is present. CENTRAL NERVOUS SYSTEM: Awake, alert, oriented x 3. No focal deficits. SKIN: No rashes. No itchiness. LYMPHATIC: No peripheral lymphadenopathy. BACK: No deformity. No pressure ulcer. HEMATOLOGIC: No bleeding or petechial lesion seen. ASSESSMENT: A 53-year-old male presenting with shortness of breath. Current problems include: * Pneumonia. * Pneumothorax. * Obesity. * Chronic tobacco use. * Diabetes mellitus. PLAN: * Continue vancomycin. * Continue cefepime. * Continue pain management. * Continue antidiabetic. * Continue ____. * Monitor electrolytes. * The patient will be followed up closely. TID: [id number] RECEIPT: [id number]
--- NOTE | 2024-11-02 22:58 | PN ---
Endocrinology progress note DOS: 11/02/24 subjective: glucose are improving Home diabetic regimen: newly diagnosed diabetes Hba1c 11.6% REVIEW OF SYSTEMS CONSTITUTIONAL: malaise, fatigue NEUROLOGICAL: Denies headache, amaurosis fugax, motor weakness, sensory deficit, vertigo/spinning sensation, gait abnormalities, or tremors. ENT: No hearing loss, otalgia, otorrhea, rhinitis, rhinorrhea, hoarseness, or sore throat. CARDIOVASCULAR: Denies any exertional angina, dyspnea on exertion, orthopnea, paroxysmal nocturnal dyspnea, palpitations, life-threatening arrhythmias, claudication. PULMONARY: SOB, pleurisy SLEEP: Denies morning headaches, daytime somnolence or napping. Denies difficulty falling asleep, staying asleep, waking from sleep. Denies knowledge of snoring. GASTROINTESTINAL: Denies any type of dysphagia to either liquids or solids. Denies nausea, vomiting, pyrosis, early satiety, abdominal pain, diarrhea, constipation, or changes in stool consistency or caliber. Denies coffee-ground emesis, hematemesis, hematochezia, or melanotic stools. GENITOURINARY: Denies frequency, urgency, nocturia, hematuria or incontinence (Storage/Irritative symptoms.) Low urinary stream, straining to void, urinary intermittency or hesitancy, splitting of the voiding stream, terminal dribbling. ENDOCRINOLOGIC: Denies polyuria, polydipsia, polyphagia or heat/cold intolerances. HEMATOLOGIC: Denies thrombophilia/previous clots, or coagulopathy/bleeding disorders. ONCOLOGIC: Denies personal history of malignancy. DERMATOLOGIC: Denies rashes or pruritus. PSYCHIATRIC: Denies any suicidal or homicidal ideation. Denies hallucinations. PAST MEDICAL HISTORY: Tobacco use disorder PAST SURGICAL HISTORY: Denies history of major surgeries previously PAST SOCIAL HISTORY: Patient smokes about a pack a day for 40 years, drinks socially, denies any other illicit drug use FAMILY HISTORY: Denies history of major family history Allergies: No known drug allergies Coded Allergies: No Known Drug Allergies (Unverified Allergy, Unknown, 10/17/23) DIAGNOSTICS / RADIOLOGY: SERVICE 0824 REASON: SOB ORDERING PHYSICIAN: TUAN LOPEZ MD PROCEDURE: CHEST WO - CT CHEST W/O CONTRAST EXAM: CT Chest Without IV contrast. CLINICAL HISTORY: SOB TECHNIQUE: Axial computed tomography images of the chest without intravenous contrast. COMPARISON: None provided. FINDINGS: LUNGS: The chest tube enters through the lateral aspect of the 4th intercostal space, with its tip abutting the cardiac mediastinum, and subcutaneous emphysema is present along the track of the chest tube. Collapse consolidation of the right lung parenchyma predominantly in the right lower lobe. Dependent left basilar atelectasis. PLEURAL SPACES: Small hydropneumothorax. HEART: No cardiomegaly. No significant pericardial effusion. LYMPH NODES: No enlarged lymphadenopathy is evident. UPPER ABDOMEN: Isodense calculus with peripheral calcification measuring 1.6 cm in the gallbladder. BONES: Mild degenerative changes in the visualised spine. No acute osseous abnormality. IMPRESSION: 1. Right hydropneumothorax with chest tube in place 2. Right lower lobe collapse consolidation 3. Subcutaneous emphysema along chest tube track /[place] DICTATED BY: YOVANI BILLS Jr., MD DATE: 10/28/24 1142 ELECTRONICALLY SIGNED BY: YOVANI BILLS Jr., MD DATE: 10/28/24 1142 ASSESSMENT: Home diabetic regimen: newly diagnosed diabetes Hba1c 11.6% glucose are improving now. Moderate to large right-sided pneumothorax status post chest tube placement in the ER, 10/28/2024 Concern for complicated parapneumonic effusion/empyema with right-sided hydropneumothorax, POA Right lower lobe consolidative pneumonia, POA newly diagnosed poorly controlled two diabetes mellitus, POA Tobacco use disorder long-term smoking history, POA Rule out chronic COPD of the lungs, POA PLAN: continue lantus 15 units daily and adjust for fasting glucose. continue Regular insulin 5 units daily and adjust for post-prandial glucose. decrease ssi to medium dose sliding scale insulin. Monitor glucose q x 6 hourly. Continue carb consistent diet. Keep glucose less than 180 mg/dl. Patient will need lantus lantus 15 units daily and metformin 1000 mg bid at discharge. Vitals/Labs Vital Signs Date Time Temp Pulse Resp B/P (MAP) Pulse Ox O2 Delivery O2 Flow Rate FiO2 11/02/24 19:48 98.2 93 18 113/67 96 Room Air 11/02/24 18:11 21 11/02/24 07:30 0 Laboratory Tests 11/02/24 03:55 Medications Current Medications Ketorolac Tromethamine 30 mg ONCE ONCE IM Last administered on 10/28/24at 06:08; Start 10/28/24 at 06:00; Stop 10/28/24 at 06:01; Status DC Methylprednisolone Sodium Succinate 60 mg ONCE ONCE IVP Last administered on 10/28/24at 06:17; Start 10/28/24 at 06:30; Stop 10/28/24 at 06:31; Status DC Albuterol 1 UDVIAL ONCE ONCE IH Last administered on 10/28/24at 07:27; Start 10/28/24 at 06:30; Stop 10/28/24 at 06:31; Status DC Lidocaine HCl 20 ml STK-MED ONCE .ROUTE; Start 10/28/24 at 07:20; Stop 10/28/24 at 07:20; Status DC Fentanyl Citrate 100 mcg STK-MED ONCE .ROUTE; Start 10/28/24 at 07:24; Stop 10/28/24 at 07:25; Status DC Ceftriaxone Sodium 2 gm ONCE ONCE IVPB Last administered on 10/28/24at 08:47; Start 10/28/24 at 08:00; Stop 10/28/24 at 08:01; Status DC Sodium Chloride 1,000 ml @ 0 mls/hr ONCE ONCE IV Last administered on 10/28/24at 09:33; Start 10/28/24 at 08:00; Stop 10/28/24 at 08:01; Status DC Sodium Chloride 1,000 ml @ 100 mls/hr Q10H IV Last administered on 10/29/24at 00:45; Start 10/28/24 at 09:00; Stop 10/29/24 at 10:34; Status DC Acetaminophen 650 mg Q6H PRN PO Last administered on 11/02/24at 16:31; Start 10/28/24 at 09:00; Stop 11/02/24 at 20:30; Status DC Ondansetron HCl 4 mg Q6H PRN IVP; Start 10/28/24 at 09:00; Stop 11/02/24 at 20:30; Status DC Budesonide 0.5 mg BIDRESP IH Last administered on 11/02/24at 18:09; Start 10/28/24 at 18:00; Stop 11/02/24 at 20:30; Status DC Albuterol 1 udvial Q6H PRN IH; Start 10/28/24 at 09:00; Stop 11/02/24 at 20:30; Status DC Cefepime HCl 2 gm Q12H IVPB Last administered on 11/02/24at 17:49; Start 10/28/24 at 18:00; Stop 11/02/24 at 20:30; Status DC Azithromycin 250 ml @ 250 mls/hr Q24H IVPB Last administered on 11/02/24at 08:38; Start 10/28/24 at 09:00; Stop 11/02/24 at 20:30; Status DC Guaifenesin/ Dextromethorphan 10 ml Q6H PRN PO; Start 10/28/24 at 09:00; Stop 11/02/24 at 20:30; Status DC Insulin Human Regular INSULIN SLIDING SCAL... ACHS SQ Last administered on 10/29/24at 06:27; Start 10/28/24 at 11:30; Stop 10/29/24 at 07:42; Status DC Thiamine HCl 100 mg Q24H IVP Last administered on 11/02/24at 08:37; Start 10/28/24 at 09:00; Stop 11/02/24 at 20:30; Status DC Hydromorphone HCl 0.5 mg Q4H PRN IVP Last administered on 10/31/24at 14:37; Start 10/28/24 at 09:00; Stop 11/02/24 at 08:59; Status DC Ketorolac Tromethamine 15 mg Q12H PRN IV Last administered on 10/29/24at 18:28; Start 10/28/24 at 09:00; Stop 10/30/24 at 09:00; Status DC Famotidine 20 mg BID IV Last administered on 11/02/24at 20:10; Start 10/28/24 at 09:00; Stop 11/02/24 at 20:30; Status DC Fentanyl Citrate 100 mcg ONCE ONCE IVP Last administered on 10/28/24at 09:59; Start 10/28/24 at 10:00; Stop 10/28/24 at 10:01; Status DC Lidocaine HCl 10 ml ONCE ONCE INJ Last administered on 10/28/24at 09:58; Start 10/28/24 at 10:00; Stop 10/28/24 at 10:01; Status DC Vancomycin HCl 1 each AD IV; Start 10/28/24 at 11:00; Stop 11/02/24 at 20:30; Status DC Insulin Glargine 12 units HS SQ; Start 10/28/24 at 21:00; Stop 10/28/24 at 17:00; Status DC Vancomycin HCl 250 ml @ 125 mls/hr ONCE ONCE IV Last administered on 10/28/24at 13:18; Start 10/28/24 at 13:00; Stop 10/28/24 at 14:59; Status DC Vancomycin HCl 250 ml @ 125 mls/hr Q12H IV Last administered on 10/30/24at 00:44; Start 10/29/24 at 01:00; Stop 10/30/24 at 12:56; Status DC Nicotine 14 mg DAILY TD Last administered on 11/02/24at 08:39; Start 10/29/24 at 09:00; Stop 11/02/24 at 20:30; Status DC Insulin Glargine 15 units HS SQ Last administered on 11/02/24at 20:14; Start 10/28/24 at 21:00; Stop 11/02/24 at 20:30; Status DC Insulin Human Regular INSULIN SLIDING SCAL... ACHS SQ Last administered on 10/29/24at 20:52; Start 10/29/24 at 11:30; Stop 10/29/24 at 22:09; Status DC Insulin Human Regular 5 unit TIDAC SQ Last administered on 11/02/24at 16:35; Start 10/30/24 at 07:30; Stop 11/02/24 at 20:30; Status DC Insulin Human Regular INSULIN SLIDING SCAL... ACHS SQ Last administered on 11/02/24at 20:12; Start 10/30/24 at 07:30; Stop 11/02/24 at 20:30; Status DC Potassium Chloride 100 ml @ 100 mls/hr AD PRN IV Last administered on 10/30/24at 17:53; Start 10/30/24 at 05:30; Stop 11/02/24 at 20:30; Status DC Potassium Chloride 20 meq AD PRN PO Last administered on 10/31/24at 17:51; Start 10/30/24 at 05:30; Stop 11/02/24 at 20:30; Status DC Potassium Chloride 20 meq AD PRN PO Last administered on 11/02/24at 08:37; Start 10/30/24 at 05:30; Stop 11/02/24 at 20:30; Status DC Magnesium Sulfate 50 ml @ 0 mls/hr PROTOCOL PRN IV Last administered on 11/02/24at 08:38; Start 10/30/24 at 05:30; Stop 11/02/24 at 20:30; Status DC Vancomycin HCl 250 ml @ 125 mls/hr ONCE ONCE IV Last administered on 10/30/24at 17:15; Start 10/30/24 at 14:00; Stop 10/30/24 at 15:59; Status DC Vancomycin HCl 250 ml @ 125 mls/hr Q8H IV Last administered on 10/31/24at 10:18; Start 10/31/24 at 01:00; Stop 10/31/24 at 17:06; Status DC Lidocaine HCl 5 ml STK-MED ONCE .ROUTE Last administered on 10/30/24at 15:43; Start 10/30/24 at 14:16; Stop 10/30/24 at 14:16; Status DC Hydromorphone HCl 2 mg ONCE ONCE IVP; Start 10/30/24 at 15:00; Stop 10/30/24 at 15:01; Status DC Iohexol 35,000 mg STK-MED ONCE IV; Start 10/30/24 at 15:04; Stop 10/30/24 at 15:05; Status DC Iron Sucrose 300 mg ONCE ONCE IV; Start 10/31/24 at 13:30; Stop 10/31/24 at 13:33; Status DC Iron Sucrose 300 mg/Sodium Chloride 250 ml @ 83 mls/hr ONCE ONCE IV Last administered on 10/31/24at 20:39; Start 10/31/24 at 21:00; Stop 11/01/24 at 00:00; Status DC Hydromorphone HCl 0.5 mg STAT ONCE IVP; Start 10/31/24 at 15:00; Stop 10/31/24 at 15:01; Status DC Vancomycin HCl 250 ml @ 125 mls/hr Q6H IV Last administered on 11/02/24at 12:33; Start 10/31/24 at 17:30; Stop 11/02/24 at 18:41; Status DC Melatonin 5 mg HSPRN PRN PO Last administered on 11/01/24at 22:07; Start 11/01/24 at 22:00; Stop 11/02/24 at 20:30; Status DC Vancomycin HCl 250 ml @ 125 mls/hr Q8H6 IV; Start 11/03/24 at 06:00; Stop 11/02/24 at 20:30; Status DC Vancomycin HCl 250 ml @ 125 mls/hr ONCE IV Last administered on 11/02/24at 18:43; Start 11/02/24 at 19:00; Stop 11/02/24 at 20:30; Status DC SHUKRI ROBLES MD Nov 02, 2024 22:58
[2024-11-03] MEDS ORDERED: VANCOMYCIN 1G/250ML KIT 250 ML IV SCH (06:00)
[2024-11-03 07:13] LABS: QUANTIFERON MITOGEN VALUE >10.00 IU/mL (.); QUANTIFERON NIL VALUE 0.08 IU/mL (.)
== END 2024-11-02 20:29 | disposition short-term general hospital (02) | DRG 193 ==
LOC: EDH 05:00 → EDHIP 08:45 → 2DH 21:37
PROVIDERS: ADMIT Internal Medicine; ATTEND Internal Medicine
DX: J15.9 Unspecified bacterial pneumonia (principal); J96.01 Acute respiratory failure with hypoxia; J98.11 Atelectasis; J44.0 Chronic obstructive pulmonary disease with (acute) lower respiratory infection; J44.1 Chronic obstructive pulmonary disease with (acute) exacerbation; J91.8 Pleural effusion in other conditions classified elsewhere; J94.8 Other specified pleural conditions; T79.7XXA Traumatic subcutaneous emphysema, initial encounter; E11.9 Type 2 diabetes mellitus without complications; D64.9 Anemia, unspecified; E66.01 Morbid (severe) obesity due to excess calories; E83.42 Hypomagnesemia; X58.XXXA Exposure to other specified factors, initial encounter; F17.210 Nicotine dependence, cigarettes, uncomplicated; I10 Essential (primary) hypertension; E87.6 Hypokalemia; Z79.4 Long term (current) use of insulin; Z83.3 Family history of diabetes mellitus; Z68.32 Body mass index [BMI] 32.0-32.9, adult; Y93.89 Activity, other specified; Y92.89 Other specified places as the place of occurrence of the external cause; Y99.8 Other external cause status
CPT/HCPCS: 36415; 36600; 71045; 71250; 74177; 76000; 80048; 80053; 80202; 80305; 81001; 82040; 82103; 82378; 82435; 82570; 82607; 82728; 82803; 82945; 82947; 82948; 83036; 83605; 83615; 83735; 83986; 84132; 84145; 84156; 84157; 84295; 84443; 84484; 85018; 85025; 85610; 85651; 85730; 86140; 86480; 86701; 87040; 87071; 87116; 87205; 87206; 87390; 87426; 87641; 87804; 87880; 89051; 93005; 93306; 93356; 94010; 94640; 94664; 99291; G0378; J0456; J0692; J0696; J1171; J1756; J1815; J1885; J2919; J3010; J3373; J3411; J3475; J3480; J3490; J7030; J7050; Q9967; J3370